=== PATIENT | female | born 1945 | race Caucasian/White ===

== ENCOUNTER 2017-03-14 10:35 | Outpatient (CLI) | payer MEDICARE, MEDICAID ==
[2017-03-14 13:17] LABS: HCT - HEMATOCRIT 35.5 % (37.0-47.0); HGB - HEMOGLOBIN 11.6 g/dL (12.0-16.0); MEAN CORPUSCULAR HEMOGLOBIN 27.6 pg (27.0-31.0); MEAN CORPUSCULAR HGB CONC 32.8 g/dL (32.0-36.0); MEAN CORPUSCULAR VOLUME 84.1 fL (81.0-99.0); MEAN PLATELET VOLUME 8.7 fL (7.9-10.8); RED BLOOD COUNT 4.21 10^6/uL (4.20-5.40); RED CELL DISTRIBUTION WIDTH 14.4 % (12.0-15.0); WHITE BLOOD COUNT 5.1 x10^3/uL (4.8-10.8)
[2017-03-14 14:03] LABS: ALBUMIN/GLOBULIN RATIO 1.6 (1.0-2.2); BILIRUBIN,TOTAL 0.5 mg/dL (0.2-1.0); BUN - BLOOD UREA NITROGEN 9 mg/dL (6-20); CALCIUM 8.9 mg/dL (8.5-10.3); CARBON DIOXIDE - CO2 28 mmol/L (21-32); CHLORIDE 102 mmol/L (101-111); CHOLESTEROL 236 mg/dL; CREATININE 0.7 mg/dL (0.4-1.0); GFR - MDRD 82 (>89); GLUCOSE 93 mg/dL (70-100); HDL CHOLESTEROL 70 mg/dL; POTASSIUM 4.1 mmol/L (3.5-5.0); SODIUM 135 mmol/L (135-145); TOTAL PROTEIN 6.6 g/dL (6.7-8.2); TRIGLYCERIDES 89 mg/dL; VLDL CHOLESTEROL 18 mg/dL
[2017-03-14 14:04] LABS: CHOL/HDL RATIO 3.4 (<4.4); LDL/HDL RATIO 2.1 (<4.4)
== END 2017-03-14 10:36 | disposition home or self-care (01) ==
LOC: LAB.N 10:35
PROVIDERS: ATTEND Family Medicine
DX: Z00.00 Encounter for general adult medical examination without abnormal findings (principal); Z79.899 Other long term (current) drug therapy; Z13.220 Encounter for screening for lipoid disorders; G47.09 Other insomnia
CPT/HCPCS: 36415; 80053; 80061; 84443

== ENCOUNTER 2017-05-21 13:58 | Emergency (ER) | payer MEDICARE, MEDICAID ==
[2017-05-21 14:06] VITALS: BP 180/84
--- NOTE | 2017-05-21 15:23 | XRAY Preliminary Report ---
Exam: XR HIP W/PELVIS 2-3V RT IMPRESSION: Chronic findings. No definite acute disease. [facility] SITE ID: [id number]
--- NOTE | 2017-05-21 15:26 | XRAY Report ---
EXAM: RIGHT HIP AND PELVIS RADIOGRAPHY EXAM DATE: 05/21/2017 03:13 PM. HISTORY: Right hip pain. COMPARISONS: 11/21/2009. TECHNIQUE: 1 view of the pelvis and 1 view of the hip. FINDINGS: Bones: Small bone island in the right supra-acetabular region has not changed significantly. No defin ite fracture or other bone lesion. Joints: The bilateral hip, pubis symphysis, and sacroiliac joints are preserved. Degenerative changes in lower lumbar spine. Soft Tissues: Numerous calcifications in the lower midpelvis, probably in uterine leiomyomata. IMPRESSION: Chronic findings. No definite acute disease. [facility] Referring Provider Line: [phone] SITE ID: [id number]
--- NOTE | 2017-05-21 15:44 | ED Physician Documentation ---
PD HPI LOWER EXT INJURY - Stated complaint Stated Complaint: HIP PX - Chief complaint Chief Complaint: Ext Problem - History obtained from History obtained from: Patient - History of Present Illness PD HPI LOW EXT INJURY LOCATION: Right, Hip Type of injury: Other (No traumatic injury.) Timing - onset: How many days ago (6) Timing - details: Still present Worsened by: Other (Worse with weightbearing.) Associated symptoms: Other (History of osteoarthritis, and history of remote injury to her right hip 34 years ago.) Similar symptoms before: Treatment (Previously was administered a lidocaine injection in the right hip for similar pain.) - Additional information Additional information: The patient is a 71-year-old female who complains of right hip pain that started 6 days ago without any known traumatic injury recently. The pain is worse with weightbearing. She denies any associated fever, urinary incontinence , numbness or weakness in her lower extremities. She has a remote history of right hip injury 34 years ago when ice-skating. She has had lidocaine injection for right hip pain in the past, and is requesting that be done today. She is status post right knee surgery. Review of Systems Constitutional: denies: Fever Respiratory: denies: Dyspnea GI: denies: Abdominal Pain, Nausea, Vomiting : denies: Dysuria, Incontinent Skin: denies: Rash Musculoskeletal: reports: Joint pain (right hip). denies: Back pain, Extremity swelling Neurologic: denies: Focal weakness, Numbness, Headache PD PAST MEDICAL HISTORY - Past Medical History Past Medical History: Yes Cardiovascular: High cholesterol Respiratory: Asthma Endocrine/Autoimmune: None GI: Ulcers : Other HEENT: None Psych: Depression, Bipolar disorder, Panic attacks, Post traumatic stress disorder Musculoskeletal: Osteoarthritis, Osteoporosis Derm: None - Past Surgical History Past Surgical History: Yes General: Colonoscopy Ortho: Spine surgery, Other (Right knee surgery.) - Present Medications Home Medications: Ambulatory Orders Medication Instructions Recorded Confirmed Gabapentin [Gralise] 600 mg PO QID 01/03/13 05/21/17 Alendronate Sodium [Fosamax] 70 mg PO ONCE 05/15/15 05/21/17 Budesonide/Formoterol Fumarate 10.2 gm IH BID 05/15/15 05/21/17 [Symbicort 80-4.5 Mcg Inhaler] Multivitamin [Multivitamins] 1 each PO DAILY 05/15/15 05/21/17 Venlafaxine [Effexor] 37.5 mg PO BID 05/15/15 05/21/17 traZODone [Desyrel] 250 mg PO HS 05/15/15 05/21/17 Lurasidone HCl [Latuda] 20 mg PO DAILY 11/26/15 05/21/17 Albuterol Sulfate [Ventolin Hfa] 2 puffs IH Q4H PRN #1 hfa.aer.ad 11/29/1505/21 HYDROcod/ACETAM 5/325 [Vicodin 1 ea PO Q6H PRN #20 tablet 05/21/17 5/325] Zolpidem Tartrate [Ambien] 10 mg PO DAILY 05/21/17 05/21/17 tiZANidine [Zanaflex] 2 mg PO DAILY 05/21/17 05/21/17 - Allergies Allergies/Adverse Reactions: Allergies Allergy/AdvReac Type Severity Reaction Status Date / Time Tetracyclines Allergy Intermediate Rash Verified 05/21/17 14:06 ciprofloxacin Allergy Nausea Verified 05/21/17 14:06 amoxicillin trihydrate * AdvReac Intermediate Nausea Verified 05/21/17 14:06 [From Augmentin] Penicillins AdvReac Nausea Verified 05/21/17 14:06 - Social History Does the pt smoke?: No Smoking Status: Never smoker Does the pt drink ETOH?: No Does the pt have substance abuse?: No - POLST Patient has POLST: No PD ED PE NORMAL - Vitals Vital signs reviewed: Yes (Initially hypertensive.) - General General: Alert and oriented X 3, Well developed/nourished - HEENT HEENT: Atraumatic, PERRL, Ears normal, Moist mucous membranes - Neck Neck: No adenopathy, No JVD - Cardiac Cardiac: RRR - Respiratory Respiratory: No respiratory distress, Clear bilaterally - Abdomen Abdomen: Soft, Non tender - Back Back: No CVA TTP, No spinal TTP - Derm Derm: No rash - Extremities Extremities: No edema, No calf tenderness / cord, Other (There is tenderness to palpation of the right posterior lateral hip. She does have good range of motion, with flexion extension, as well as internal and external rotation of the. There is a well-healed surgical scar over the anterior aspect of the right knee. Distal neurovascular is intact.) - Neuro Neuro: Alert and oriented X 3, No motor deficit, No sensory deficit Results - Vitals Vitals: Oxygen O2 Source [] Room air O2 Source Room air - Rads (name of study) Right hip/pelvis Radiology: Prelim report reviewed, EMP read contemporaneously, See rad report ( Chronic findings. No definite acute disease.) PD MEDICAL DECISION MAKING - ED course Complexity details: reviewed old records, reviewed results, re-evaluated patient , considered differential, d/w patient ED course: The patient's right hip pain is most likely due to degenerative arthritis. Her x-ray reveals degenerative changes, without acute bony abnormality. I do not think her pain is caused by a septic joint. Her pain may be referred pain from her lower back, but that is less likely. Treatment in the emergency department included administration of Vicodin one tablet orally. She is being discharged with prescription for short course of Vicodin. I discussed with her symptomatic treatment, outpatient follow-up, as well as potentially worrisome signs or symptoms that should prompt reevaluation in the emergency department. Departure - Departure Disposition: 01 Home, Self Care Clinical Impression: Left hip pain Condition: Stable Instructions: ED Joint Pain Follow-Up: Lit Hayes MD [Primary Care Provider] - Prescriptions: HYDROcod/ACETAM 5/325 [Vicodin 5/325] 1 ea PO Q6H PRN #20 tablet PRN Reason: Pain Comments: You can use Vicodin as prescribed if needed for pain. Follow up with your primary physician within 1-2 weeks. Call to schedule appointment. Return to the emergency department if you develop increasing pain, fever, numbness or weakness in your leg, or otherwise worsening symptoms. Discharge Date/Time: 05/21/17 16:18
[2017-05-21] MEDS ORDERED: HYDROcod/ACETAM 5/325 MG TABLET PO STA (15:52)
== END 2017-05-21 16:18 | disposition home or self-care (01) ==
LOC: ED 13:58
DX: M25.551 Pain in right hip (principal); M81.0 Age-related osteoporosis without current pathological fracture; M19.90 Unspecified osteoarthritis, unspecified site; E78.00 Pure hypercholesterolemia, unspecified
CPT/HCPCS: 73502; 99283; 99284; A9270

== ENCOUNTER 2017-12-04 11:17 | Outpatient (CLI) | payer MEDICARE, MEDICAID ==
[2017-12-04 18:56] LABS: BASOPHILS % (AUTO) 0.6 %; EOSINOPHILS # (AUTO) 0.1 10^3/uL (0.0-0.7); EOSINOPHILS % (AUTO) 1.2 %; HGB - HEMOGLOBIN 11.3 g/dL (12.0-16.0); LYMPHOCYTES # (AUTO) 1.6 10^3/uL (1.5-3.5); LYMPHOCYTES % (AUTO) 27.4 %; MEAN CORPUSCULAR HEMOGLOBIN 27.4 pg (27.0-31.0); MEAN CORPUSCULAR HGB CONC 31.6 g/dL (32.0-36.0); MEAN CORPUSCULAR VOLUME 86.9 fL (81.0-99.0); MONOCYTES # (AUTO) 0.3 10^3/uL (0.0-1.0); MONOCYTES % (AUTO) 5.9 %; NEUTROPHILS # (AUTO) 3.8 10^3/uL (1.5-6.6); NEUTROPHILS % (AUTO) 64.9 %; PLT - PLATELET COUNT 402 10^3/uL (130-450); RED BLOOD COUNT 4.11 10^6/uL (4.20-5.40); RED CELL DISTRIBUTION WIDTH 14.7 % (12.0-15.0); WHITE BLOOD COUNT 5.9 x10^3/uL (4.8-10.8)
[2017-12-04 19:12] LABS: ALBUMIN 3.3 g/dL (3.2-5.5); ALBUMIN/GLOBULIN RATIO 0.9 (1.0-2.2); ALKALINE PHOSPHATASE 49 IU/L (42-121); ALT ALANINE AMINOTRANSFERASE < 10 IU/L (10-60); AST ASPARTATE AMINOTRANSFERASE 14 IU/L (10-42); BILIRUBIN,TOTAL 0.3 mg/dL (0.2-1.0); BUN - BLOOD UREA NITROGEN 16 mg/dL (6-20); CALCIUM 9.3 mg/dL (8.5-10.3); CARBON DIOXIDE - CO2 27 mmol/L (21-32); CHLORIDE 103 mmol/L (101-111); CREATININE 0.7 mg/dL (0.4-1.0); GFR - MDRD 82 (>89); GLUCOSE 88 mg/dL (70-100); SODIUM 138 mmol/L (135-145); TOTAL PROTEIN 6.8 g/dL (6.7-8.2)
== END 2017-12-04 11:18 | disposition home or self-care (01) ==
LOC: LAB.WCP 11:17
PROVIDERS: ATTEND Family Medicine
DX: R91.8 Other nonspecific abnormal finding of lung field (principal); M81.0 Age-related osteoporosis without current pathological fracture; G47.01 Insomnia due to medical condition; F32.9 Major depressive disorder, single episode, unspecified
CPT/HCPCS: 36415; 80053; 80061; 83721; 84443; 85025

== ENCOUNTER 2018-06-11 08:00 | Outpatient (CLI) | payer MEDICARE, MEDICAID | END 2018-06-11 23:59 | disposition home or self-care (01) | LOC: LAB.WCP 08:00 | PROVIDERS: ATTEND Family Medicine | DX: R68.89 Other general symptoms and signs (principal) | CPT/HCPCS: 36415; 84443 ==

== ENCOUNTER 2018-11-19 13:09 | Outpatient (CLI) | payer MEDICARE, MEDICAID ==
[2018-12-17 15:03] LABS: CLARITY,URINE CLEAR (CLEAR); LEUKOCYTE ESTERASE, URINE NEGATIVE (NEGATIVE); NITRITE,URINE NEGATIVE (NEGATIVE)
[2018-12-17 15:04] LABS: PH,URINE 7.5 PH (5.0-7.5); PROTEIN,URINE NEGATIVE (NEGATIVE); UROBILINOGEN,URINE 0.2 (NORMAL) E.U./dL (NORMAL)
[2018-12-17 15:05] LABS: BILIRUBIN,URINE NEGATIVE (NEGATIVE); GLUCOSE, URINE (UA) NEGATIVE (NEGATIVE); KETONES,URINE (UA) NEGATIVE (NEGATIVE); OCCULT BLOOD,URINE NEGATIVE (NEGATIVE)
== END 2018-11-19 23:59 | disposition home or self-care (01) ==
LOC: LAB.R 13:09
PROVIDERS: ATTEND Family Medicine
DX: R39.9 Unspecified symptoms and signs involving the genitourinary system (principal)
CPT/HCPCS: 81001; 81003; 87086

== ENCOUNTER 2019-02-10 12:17 | Day surgery (SDC) | payer MEDICARE, MEDICAID ==
[2019-02-10] MEDS ORDERED: MIDAZOLAM 2 MG/2 ML VIAL IVP ONE (12:18)
[2019-02-10] MEDS ORDERED: fentaNYL 250 MCG/5 ML VIAL IVP ONE (12:18)
[2019-02-10] MEDS ORDERED: LACTATED RINGERS 1,000 ML IV ONE (14:20)
[2019-02-10 15:08] VITALS: BP 169/90
== END 2019-02-10 12:18 | disposition home or self-care (01) ==
LOC: SDS 12:17
PROVIDERS: ATTEND Internal Medicine
PROC: 0DJD8ZZ Inspection of Lower Intestinal Tract, Via Natural or Artificial Opening Endoscopic (ICD-10-PCS; principal; 2019-02-10 13:30)
DX: R19.4 Change in bowel habit (principal); K64.0 First degree hemorrhoids
CPT/HCPCS: 45378; J7120

== ENCOUNTER 2019-03-17 13:50 | Outpatient (CLI) | payer MEDICARE, MEDICAID ==
[2019-03-17 18:43] LABS: MUDS CUTOFF CONCENTRATIONS CUTOFF CONC BELOW:
[2019-03-17 19:14] LABS: AMPHETAMINE SCREEN,URINE NEGATIVE (NEGATIVE); BENZODIAZEPINES SCREEN, URINE NEGATIVE (NEGATIVE); COCAINE SCREEN URINE NEGATIVE (NEGATIVE); METHADONE SCREEN, URINE NEGATIVE (NEGATIVE); METHAMPHETAMINES SCREEN, URINE NEGATIVE (NEGATIVE); OPIATE SCREEN, URINE POSITIVE (NEGATIVE); OXYCODONE SCREEN, URINE NEGATIVE (NEGATIVE); PROPOXYPHENE SCREEN, URINE NEGATIVE (NEGATIVE); TRICYCLIC ANTIDEPRESSANT,URINE NEGATIVE (NEGATIVE)
== END 2019-03-17 23:59 | disposition home or self-care (01) ==
LOC: LAB.R 13:50
PROVIDERS: ATTEND Family Medicine
DX: Z79.891 Long term (current) use of opiate analgesic (principal)
CPT/HCPCS: 80306

== ENCOUNTER 2019-05-27 12:41 | Outpatient (CLI) | payer MEDICARE, MEDICAID | END 2019-05-27 12:42 | disposition critical access hospital (66) | LOC: EMS 12:41 | PROVIDERS: ATTEND Surgery | DX: R46.4 Slowness and poor responsiveness (principal); R47.9 Unspecified speech disturbances | CPT/HCPCS: A0425; A0429 ==

== ENCOUNTER 2019-05-27 13:04 | Inpatient (IN) | payer MEDICARE, MEDICAID ==
--- NOTE | 2019-05-27 13:17 | ED Physician Documentation ---
History of Present Illness - Stated complaint Stated Complaint: ALOC - History obtained from History obtained from: EMS - Additonal information Additional information: 73-year-old woman presents ambulance for altered mental status. She lives alone with a visiting caregiver. The caregiver had not seen her in a few days and found her today to be in bed mumbling. There was no report of trauma. Her blood glucose prior to arrival was in the 80s. Review of the chart shows that this is happened before, she had similar admissions due to psychosis and depression back in 2014 which resolved spontaneously. When I talked to the patient, she is very slow to answer questions. I asked her why she is here and she replied "it is wrong." I asked her what was wrong and she replied that somebody was making fun of her and then we drilled down and somebody named Derrek Knight she said was making fun of her. Then she would not elaborate more on that. I asked her how I could help her and she said lift my arms up and I lifted her arms up and she put them behind her head. Symmetric movements. Review of Systems Unable to obtain: AMS PD PAST MEDICAL HISTORY - Past Medical History Cardiovascular: High cholesterol Respiratory: Asthma Endocrine/Autoimmune: None GI: Ulcers : Other HEENT: None Psych: Depression, Bipolar disorder, Panic attacks, Post traumatic stress disorder Musculoskeletal: Osteoarthritis, Osteoporosis Derm: None - Past Surgical History Past Surgical History: Yes General: Colonoscopy Ortho: Other HEENT: Tonsil/Adenoidectomy - Present Medications Home Medications: Ambulatory Orders Medication Instructions Recorded Confirmed Alendronate Sodium [Fosamax] 70 mg PO Q7D 05/15/15 05/27/19 Multivitamin [Multivitamins] 1 each PO DAILY 05/15/15 05/27/19 Budesonide/Formoterol Fumarate 2 puffs INH BID 05/27/19 [Symbicort 160-4.5 Mcg Inhaler] Cetirizine [ZyrTEC] 10 mg PO DAILY 05/27/19 05/27/19 Gabapentin 800 mg PO TID 05/27/19 05/27/19 Hydrocodone/Acetaminophen 1 tab PO TID PRN 05/27/19 05/27/19 [Hydrocodon-Acetaminophn 10-325] Lactulose 10 gm PO DAILY PRN 05/27/19 05/27/19 Lurasidone HCl [Latuda] 20 mg PO DAILY 05/27/19 Meloxicam 15 mg PO DAILY 05/27/19 05/27/19 Tizanidine HCl 2 mg PO BID 05/27/19 05/27/19 Trazodone HCl 300 mg PO QPM 05/27/19 05/27/19 Venlafaxine ER [Effexor ER] 75 mg PO DAILY 05/27/19 05/27/19 Venlafaxine HCl [Venlafaxine HCl 150 mg PO DAILY 05/27/19 05/27/19 ER] clonazePAM [Clonazepam] 0.5 mg PO BID PRN 05/27/19 05/27/19 lisinopriL [Lisinopril] 20 mg PO DAILY 05/27/19 05/27/19 - Allergies Allergies/Adverse Reactions: Allergies Allergy/AdvReac Type Severity Reaction Status Date / Time Tetracyclines Allergy Intermediate Rash Verified 05/21/17 14:06 ciprofloxacin Allergy Nausea Verified 05/21/17 14:06 amoxicillin trihydrate * AdvReac Intermediate Nausea Verified 05/21/17 14:06 [From Augmentin] Penicillins AdvReac Nausea Verified 05/21/17 14:06 - Social History Does the pt smoke?: No Smoking Status: Never smoker Does the pt drink ETOH?: No Does the pt have substance abuse?: No - POLST Patient has POLST: No PD ED PE NORMAL - Vitals Vital signs reviewed: Yes - General General: No acute distress, Other (She is alert, she will answer questions albeit very very slowly, after I ask a question it takes about a minute for a 1 or 2 word answer. She follows simple commands.) - HEENT HEENT: PERRL, EOMI - Neck Neck: Supple, no meningeal sign, No bony TTP - Cardiac Cardiac: RRR, No murmur - Respiratory Respiratory: No respiratory distress, Clear bilaterally - Abdomen Abdomen: Normal bowel sounds, Soft, Non tender - Back Back: No CVA TTP, No spinal TTP - Derm Derm: Normal color, Warm and dry - Extremities Extremities: No edema, No calf tenderness / cord - Neuro Neuro: No motor deficit, No sensory deficit Eye Opening: Spontaneous Motor: Obeys Commands Verbal: Inappropriate GCS Score: 13 Results - Vitals Vitals: Vital Signs - 24 hr 05/27/19 05/27/19 05/27/19 13:06 15:53 16:01 Temperature 36.9 C Heart Rate 78 84 73 Respiratory 16 20 18 Rate Blood Pressure 200/76 H 193/91 H 161/91 H O2 Saturation 100 98 100 Oxygen O2 Source [] Room air O2 Source Room air - EKG (time done) 1334 Rate: Rate (enter#) (79) Rhythm: NSR [place]: Normal Intervals: Normal OR QRS: Normal Ischemia: Non specific changes Computer interpretation: Agree with computer - Labs Labs: Laboratory Tests 05/27/19 05/27/19 05/27/19 13:30 13:30 13:30 WBC 6.8 RBC 4.52 Hgb 12.2 Hct 39.0 MCV 86.3 MCH 27.0 MCHC 31.3 L RDW 13.9 Plt Count 267 MPV 9.9 Neut # (Auto) 4.5 Lymph # (Auto) 1.7 [place] # (Auto) 0.5 Eos # (Auto) 0.0 Baso # (Auto) 0.0 Absolute Nucleated RBC 0.00 Nucleated RBC % 0.0 PT 11.9 INR 1.0 Sodium 138 Potassium 4.0 Chloride 102 Carbon Dioxide 25 Anion Gap 11.0 BUN 19 Creatinine 0.6 Estimated GFR (MDRD) 98 Glucose 104 H Lactic Acid Calcium 9.6 Total Bilirubin 0.8 AST 17 ALT 14 Alkaline Phosphatase 42 Total Creatine Kinase Total Protein 7.1 Albumin 4.4 Globulin 2.7 Albumin/Globulin Ratio 1.6 Lipase 45 TSH Urine Color Urine Clarity Urine pH Ur Specific [place] Urine Protein Urine Glucose (UA) Urine Ketones Urine Occult Blood Urine Nitrite Urine Bilirubin Urine Urobilinogen Ur Leukocyte Esterase Urine RBC Urine WBC Urine WBC Clumps Ur Squamous Epith Cells Urine Bacteria Ur Microscopic Review Urine Culture Comments Salicylates < 6.0 Urine Opiates Screen Ur Oxycodone Screen Urine Methadone Screen Ur Propoxyphene Screen Acetaminophen < 10 L Ur Barbiturates Screen Ur Tricyclics Screen Ur Phencyclidine Scrn Ur Amphetamine Screen U Methamphetamines Scrn U Benzodiazepines Scrn Urine Cocaine Screen U Cannabinoids Screen Ethyl Alcohol < 5.0 05/27/19 05/27/19 05/27/19 13:30 13:30 14:35 WBC RBC Hgb Hct MCV MCH MCHC RDW Plt Count MPV Neut # (Auto) Lymph # (Auto) [place] # (Auto) Eos # (Auto) Baso # (Auto) Absolute Nucleated RBC Nucleated RBC % PT INR Sodium Potassium Chloride Carbon Dioxide Anion Gap BUN Creatinine Estimated GFR (MDRD) Glucose Lactic Acid Calcium Total Bilirubin AST ALT Alkaline Phosphatase Total Creatine Kinase 64 Total Protein Albumin Globulin Albumin/Globulin Ratio Lipase TSH 0.18 L Urine Color YELLOW Urine Clarity CLOUDY Urine pH 6.0 Ur Specific Fowler 1.025 Urine Protein TRACE Urine Glucose (UA) NEGATIVE Urine Ketones >=80 H Urine Occult Blood LARGE H Urine Nitrite NEGATIVE Urine Bilirubin NEGATIVE Urine Urobilinogen 0.2 (NORMAL) Ur Leukocyte Esterase LARGE H Urine RBC TNTC H Urine WBC >25 H Urine WBC Clumps PRESENT Ur Squamous Epith Cells MANY Squamous H Urine Bacteria Many H Ur Microscopic Review INDICATED Urine Culture Comments NOT INDICATED Salicylates Urine Opiates Screen NEGATIVE Ur Oxycodone Screen NEGATIVE Urine Methadone Screen NEGATIVE Ur Propoxyphene Screen NEGATIVE Acetaminophen Ur Barbiturates Screen NEGATIVE Ur Tricyclics Screen NEGATIVE Ur Phencyclidine Scrn NEGATIVE Ur Amphetamine Screen NEGATIVE U Methamphetamines Scrn NEGATIVE U Benzodiazepines Scrn NEGATIVE Urine Cocaine Screen NEGATIVE U Cannabinoids Screen NEGATIVE Ethyl Alcohol 05/27/19 16:00 WBC RBC Hgb Hct MCV MCH MCHC RDW Plt Count MPV Neut # (Auto) Lymph # (Auto) [place] # (Auto) Eos # (Auto) Baso # (Auto) Absolute Nucleated RBC Nucleated RBC % PT INR Sodium Potassium Chloride Carbon Dioxide Anion Gap BUN Creatinine Estimated GFR (MDRD) Glucose Lactic Acid 1.4 Calcium Total Bilirubin AST ALT Alkaline Phosphatase Total Creatine Kinase Total Protein Albumin Globulin Albumin/Globulin Ratio Lipase TSH Urine Color Urine Clarity Urine pH Ur Specific Fowler Urine Protein Urine Glucose (UA) Urine Ketones Urine Occult Blood Urine Nitrite Urine Bilirubin Urine Urobilinogen Ur Leukocyte Esterase Urine RBC Urine WBC Urine WBC Clumps Ur Squamous Epith Cells Urine Bacteria Ur Microscopic Review Urine Culture Comments Salicylates Urine Opiates Screen Ur Oxycodone Screen Urine Methadone Screen Ur Propoxyphene Screen Acetaminophen Ur Barbiturates Screen Ur Tricyclics Screen Ur Phencyclidine Scrn Ur Amphetamine Screen U Methamphetamines Scrn U Benzodiazepines Scrn Urine Cocaine Screen U Cannabinoids Screen Ethyl Alcohol - Rads (name of study) CT Head Radiology: EMP read contemporaneously (atrophy NAD) PD MEDICAL DECISION MAKING - ED course ED course: 73-year-old woman presents with altered mental status, catatonia. Only pertinent positive finding is a UTI. Note made that in 2015 she had some admissions very similar and resolved. Spoke with Dr. Monaco for admission at 3:49 PM. Departure - Departure Disposition: ED Place in Observation Clinical Impression: UTI (lower urinary tract infection) Altered mental status Qualifiers: Altered mental status type: delirium Qualified Code(s): R41.0 - Disorientation, unspecified Condition: Serious
[2019-05-27 13:40] LABS: BASOPHILS % (AUTO) 0.4 %; EOSINOPHILS % (AUTO) 0.1 %; HGB - HEMOGLOBIN 12.2 g/dL (12.0-16.0); LYMPHOCYTES # (AUTO) 1.7 10^3/uL (1.5-3.5); LYMPHOCYTES % (AUTO) 25.7 %; MEAN CORPUSCULAR HGB CONC 31.3 g/dL (32.0-36.0); MEAN CORPUSCULAR VOLUME 86.3 fL (81.0-99.0); MEAN PLATELET VOLUME 9.9 fL (7.9-10.8); MONOCYTES # (AUTO) 0.5 10^3/uL (0.0-1.0); MONOCYTES % (AUTO) 6.7 %; NEUTROPHILS # (AUTO) 4.5 10^3/uL (1.5-6.6); PLT - PLATELET COUNT 267 10^3/uL (130-450); RED BLOOD COUNT 4.52 10^6/uL (4.20-5.40); RED CELL DISTRIBUTION WIDTH 13.9 % (12.0-15.0); WHITE BLOOD COUNT 6.8 x10^3/uL (4.8-10.8)
[2019-05-27 13:46] LABS: PT - PROTHROMBIN TIME 11.9 secs (9.9-12.6)
[2019-05-27 13:58] LABS: ACETAMINOPHEN < 10 ug/mL (10-30); ALBUMIN 4.4 g/dL (3.2-5.5); ALBUMIN/GLOBULIN RATIO 1.6 (1.0-2.2); ALKALINE PHOSPHATASE 42 IU/L (42-121); ALT ALANINE AMINOTRANSFERASE 14 IU/L (10-60); AST ASPARTATE AMINOTRANSFERASE 17 IU/L (10-42); BILIRUBIN,TOTAL 0.8 mg/dL (0.2-1.0); BUN - BLOOD UREA NITROGEN 19 mg/dL (6-20); CALCIUM 9.6 mg/dL (8.5-10.3); CARBON DIOXIDE - CO2 25 mmol/L (21-32); CHLORIDE 102 mmol/L (101-111); CREATININE 0.6 mg/dL (0.4-1.0); GFR - MDRD 98 (>89); GLUCOSE 104 mg/dL (70-100); LIPASE 45 U/L (22-51); SALICYLATE < 6.0 mg/dL; SODIUM 138 mmol/L (135-145); TOTAL PROTEIN 7.1 g/dL (6.7-8.2)
--- NOTE | 2019-05-27 14:19 | CT Report ---
Reason: altered Procedure Date: 05/27/2019 Accession Number: [id number] / [id number] Procedure: CT - HEAD WO CPT Code: Final Report FULL RESULT: EXAM: CT HEAD EXAM DATE: 05/27/2019 01:52 PM. CLINICAL HISTORY: 73-year-old female. Altered. COMPARISON: MR brain 09/14/2014 TECHNIQUE: Multiaxial CT images were obtained from the foramen magnum to the vertex. Reformats: Sagittal and coronal. IV contrast: None. In accordance with CT protocol optimization, one or more of the following dose reduction techniques were utilized for this exam: automated exposure control, adjustment of mA and/or KV based on patient size, or use of iterative reconstructive technique. FINDINGS: Parenchyma: No intraparenchymal hemorrhage. No evidence of mass, midline shift, or CT findings of acute infarction. Warren-white differentiation is distinct. Diffuse chronic microangiopathic white matter changes are evident. Extraaxial Spaces: Normal for age. No subdural or epidural collections identified. Ventricles: The ventricles and cortical sulci are enlarged, consistent with age-related tissue loss. Sinuses and orbits: Imaged paranasal sinuses, orbits, and mastoids show no significant abnormality. Bones: No evidence of fracture or calvarial defect. Other: None. IMPRESSION: Generalized age-related cortical atrophic changes without evidence of acute intracranial abnormality. [facility]
[2019-05-27 14:53] LABS: MUDS CUTOFF CONCENTRATIONS CUTOFF CONC BELOW:
[2019-05-27 15:05] LABS: GLUCOSE, URINE (UA) NEGATIVE (NEGATIVE); KETONES,URINE (UA) >=80 mg/dL (NEGATIVE); LEUKOCYTE ESTERASE, URINE LARGE (NEGATIVE); NITRITE,URINE NEGATIVE (NEGATIVE); OCCULT BLOOD,URINE LARGE (NEGATIVE); PROTEIN,URINE TRACE mg/dL (NEGATIVE); UROBILINOGEN,URINE 0.2 (NORMAL) E.U./dL (NORMAL)
[2019-05-27 15:21] LABS: AMPHETAMINE SCREEN,URINE NEGATIVE (NEGATIVE); BENZODIAZEPINES SCREEN, URINE NEGATIVE (NEGATIVE); BILIRUBIN,URINE NEGATIVE (NEGATIVE); CLARITY,URINE CLOUDY (CLEAR); COCAINE SCREEN URINE NEGATIVE (NEGATIVE); ICTOTEST,URINE NEGATIVE; METHADONE SCREEN, URINE NEGATIVE (NEGATIVE); METHAMPHETAMINES SCREEN, URINE NEGATIVE (NEGATIVE); OPIATE SCREEN, URINE NEGATIVE (NEGATIVE); OXYCODONE SCREEN, URINE NEGATIVE (NEGATIVE); PROPOXYPHENE SCREEN, URINE NEGATIVE (NEGATIVE); TRICYCLIC ANTIDEPRESSANT,URINE NEGATIVE (NEGATIVE)
[2019-05-27 15:23] LABS: BACTERIA,URINE Many /HPF (None Seen); RBC,URINE TNTC /HPF (0-5); SQUAMOUS EPITHELIAL CELL,UR MANY Squamous (<= Few); WBC CLUMPS,URINE PRESENT
[2019-05-27] MEDS ORDERED: SODIUM CHLORIDE 0.9% 1,000 ML IV ONE (15:32)
[2019-05-27] MEDS ORDERED: cefTRIAXone 1 GM in SODIUM CHLORIDE 0.9% MINIBAG 100 ML IV STA (15:33)
[2019-05-27] MEDS ORDERED: ACETAMINOPHEN 325 MG TABLET PO PRN (16:31)
[2019-05-27] MEDS ORDERED: SODIUM CHLORIDE FLUSH 0.9% 10 ML SYRINGE IVP PRN (16:31)
[2019-05-27] MEDS ORDERED: ONDANSETRON 4 MG/2 ML VIAL IVP PRN (16:31)
[2019-05-27] MEDS ORDERED: HYDROcod/ACETAM 10 MG/325 MG TABLET PO PRN (16:44)
[2019-05-27] MEDS ORDERED: clonazePAM 0.5 MG TABLET PO PRN (16:44)
[2019-05-27] MEDS ORDERED: ALBUTEROL NEB 2.5 MG/3 ML INH PRN (16:50)
[2019-05-27] MEDS ORDERED: IPRATROPIUM/ALBUTEROL 3 ML NEB INH PRN (16:50)
--- NOTE | 2019-05-27 16:51 | HISTORY & PHYSICAL EXAMINATION ---
Chief Complaint - Chief Complaint Chief Complaint: AMS History of Present Illness - History of Present Illness HPI Comment/Other: 73-year-old woman with a PMH significant for asthma, PUD, osteoporosis, chronic back pain, and depression who presents ER for altered mental status. pt had two similar admission on 2014 for altered mental status, resolved the problem by her own. pt lives alone with a visiting caregiver. The caregiver had not seen her in a few days and found her today to be in bed with mumbling. There was no report of trauma or fall. I ask pt question, she watch me but did not answer question. nurse at the bedside and ask her, she also did not answer. Upon examination, pt does not present focal neurological deficit, bilateral with equal strength. CT of head is unremarkable for acute finding. UA indicate possible UTI. TSH is low otherwise route lab test in ER is unremarkable. pt is afebrile with elevated BP. pt is admitted for altered mental status. History - Past Medical History Cardiovascular: reports: High cholesterol Respiratory: reports: Asthma Endocrine/Autoimmune: reports: None GI: reports: Ulcers : reports: Other HEENT: reports: None Psych: reports: Depression, Bipolar disorder, Panic attacks, Post traumatic stress disorder Musculoskeletal: reports: Osteoarthritis, Osteoporosis Derm: reports: None MRSA Hx?: No - Past Surgical History General: reports: Colonoscopy Ortho: reports: Other HEENT: reports: Tonsil/Adenoidectomy - Family & Social History Family History Comment/Other: pt did not answer any questions Social History Notes: pt did not answer any questions - POLST Patient has POLST: No Meds/Allgy - Home Medications Home Medications: Ambulatory Orders Medication Instructions Recorded Confirmed Alendronate Sodium [Fosamax] 70 mg PO Q7D 05/15/15 05/27/19 Multivitamin [Multivitamins] 1 each PO DAILY 05/15/15 05/27/19 Cetirizine [ZyrTEC] 10 mg PO DAILY 05/27/19 05/27/19 Gabapentin 800 mg PO TID 05/27/19 05/27/19 Hydrocodone/Acetaminophen 1 tab PO TID PRN 05/27/19 05/27/19 [Hydrocodon-Acetaminophn 10-325] Lactulose 10 gm PO DAILY PRN 05/27/19 05/27/19 Meloxicam 15 mg PO DAILY 05/27/19 05/27/19 Tizanidine HCl 2 mg PO BID 05/27/19 05/27/19 Trazodone HCl 300 mg PO QPM 05/27/19 05/27/19 Venlafaxine ER [Effexor ER] 75 mg PO DAILY 05/27/19 05/27/19 Venlafaxine HCl [Venlafaxine HCl 150 mg PO DAILY 05/27/19 05/27/19 ER] clonazePAM [Clonazepam] 0.5 mg PO BID PRN 05/27/19 05/27/19 lisinopriL [Lisinopril] 20 mg PO DAILY 05/27/19 05/27/19 - Allergies Allergies/Adverse Reactions: Allergies Allergy/AdvReac Type Severity Reaction Status Date / Time Tetracyclines Allergy Intermediate Rash Verified 05/21/17 14:06 ciprofloxacin Allergy Nausea Verified 05/21/17 14:06 amoxicillin trihydrate * AdvReac Intermediate Nausea Verified 05/21/17 14:06 [From Augmentin] Penicillins AdvReac Nausea Verified 05/21/17 14:06 Review of Systems - Other Findings Other Findings: pt did not answer any questions Exam - Vital Signs Vital Signs: Vital Signs x48h Temp Pulse Resp BP Pulse Ox 05/27/19 16:01 73 18 161/91 H 100 05/27/19 15:53 84 20 193/91 H 98 05/27/19 13:06 36.9 C 78 16 200/76 H 100 - Physical Exam General Appearance: positive: No acute distress, Alert. negative: Lethargic Eyes Bilateral: positive: Normal inspection, PERRL, EOMI, No lid inflammation ENT: positive: ENT inspection nml, No signs of dehydration. negative: Purulent nasal drainage Neck: positive: Nml inspection, Thyroid nml, No JVD, Trachea midline. negative: Thyromegaly, Lymphadenopathy (R), Lymphadenopathy (L), Stiff neck, Tracheal deviation Respiratory: positive: Chest non-tender, No respiratory distress, Breath sounds nml. negative: Wheezes, Rales, Rhonchi Cardiovascular: positive: Regular rate & rhythm, No murmur, No gallop. negative: Irregularly irregular, Extrasystoles, Tachycardia, Bradycardia, JVD present, Systolic murmur, Diastolic murmur Peripheral Pulses: positive: 2+ Abdomen: positive: Non-tender, No organomegaly, Nml bowel sounds, No distention. negative: Tenderness, Guarding, Rebound Back: positive: Nml inspection Skin: positive: Color nml, No rash, Warm, Dry. negative: Cyanosis, Diaphoresis, Pallor Extremities: positive: Non-tender, Nml appearance. negative: Calf tenderness, Siri's sign/cords Neurologic/Psychiatric: positive: Sensation nml. negative: Weakness, Sensory loss, Facial droop, Slurred/abnml speech, Depressed mood/affect Sepsis Event Note (H) - Evaluation Current Stage of Sepsis: Ruled out Conclusion/Plan - Problem List (1) Altered mental status Conclusion/Plan: pt present AMS, did not answer any questions when I and nurse asked her. pt has hx of AMS, resolved by her own in hospital setting, pt did not present focal neurological deficits. continue treatment of underline of infection, likely UTI nurse and staff, team support, and orient to pt gently IVF of NS Qualifiers: Altered mental status type: delirium Qualified Code(s): R41.0 - Disorientation, unspecified (2) UTI (lower urinary tract infection) Conclusion/Plan: UA analysis reveals skin cell contamination, will repeat UA, ER already start antibiotics. pt is confused. otherwise will continue antibiotics until new UA approve. (3) Asthma Conclusion/Plan: hx of Asthma, now pt is stable. order PRN of albuterol Qualifiers: Asthma severity: mild intermittent Asthma complication type: with acute exacerbation (4) Depression Conclusion/Plan: pt has hx of depression, resume home meds, neuro check (5) Chronic back pain Conclusion/Plan: pt has hx of chronic back pain, stable, continue pain control - Lab Results Fish Bones: 05/28/19 04:40 05/28/19 04:40 Core Measures - Anticipated LOS I expect patient to be DC'd or transferred within 96 hours.: Yes - DVT/VTE - Prophylaxis VTE/DVT Device ordered at admit?: Yes VTE/DVT Prophylaxis med ordered at admit?: Yes
[2019-05-27] MEDS ORDERED: SODIUM CHLORIDE 0.9% 1,000 ML IV SCH (17:00)
[2019-05-27] MEDS: lisinopriL 20 MG TABLET PO SCH (17:50)
[2019-05-27] MEDS ORDERED: hydrALAZINE INJ 20 MG/ML VIAL IVP PRN (18:12)
--- NOTE | 2019-05-27 18:17 | PHARMACY PROGRESS NOTE ---
- Best Possible Medication History Admit Date and Time: 05/27/19 1631 Processed by: Pharmacy Medication History completed: Yes Patient Interview: Pt unable to participate Secondary Source(s): Prescription bottles, Physician records, Pharmacy records, Insurance records Patient had medications stored in the Pharmacy. Of note: Hydrocodone/Acetaminophen 10/325 # 16.5 tabs and clonazepam 0.5 mg tabs # 51.5 As the person ultimately responsible for medication therapy, providers are able to order a medication from an existing home medication list in [facility] via the "Reconcile Routine" prior to Confirmation of that medication by customer support professional. Such practice is discouraged except when the physician, in their clinical judgment, deems that a medical need exists for a medication without regard to previous use.
[2019-05-27] MEDS: traZODone 50 MG TABLET PO SCH (20:57)
[2019-05-27] MEDS: FAMOTIDINE 20 MG TABLET PO SCH (20:57)
[2019-05-27] MEDS: tiZANidine 4 MG TABLET PO SCH (20:57)
[2019-05-28] MEDS ORDERED: HALOPERIDOL 5 MG/ML VIAL IVP PRN (01:39)
[2019-05-28] MEDS: SODIUM CHLORIDE FLUSH 0.9% 10 ML SYRINGE IVP SCH ×3 (02:10→20:46)
[2019-05-28 05:11] LABS: BASOPHILS % (AUTO) 0.5 %; EOSINOPHILS % (AUTO) 0.3 %; HGB - HEMOGLOBIN 11.2 g/dL (12.0-16.0); LYMPHOCYTES # (AUTO) 1.8 10^3/uL (1.5-3.5); LYMPHOCYTES % (AUTO) 28.1 %; MEAN CORPUSCULAR HEMOGLOBIN 27.3 pg (27.0-31.0); MEAN CORPUSCULAR HGB CONC 31.6 g/dL (32.0-36.0); MEAN CORPUSCULAR VOLUME 86.1 fL (81.0-99.0); MEAN PLATELET VOLUME 9.9 fL (7.9-10.8); MONOCYTES # (AUTO) 0.4 10^3/uL (0.0-1.0); MONOCYTES % (AUTO) 6.6 %; NEUTROPHILS # (AUTO) 4.1 10^3/uL (1.5-6.6); NEUTROPHILS % (AUTO) 64.2 %; PLT - PLATELET COUNT 221 10^3/uL (130-450); RED BLOOD COUNT 4.11 10^6/uL (4.20-5.40); WHITE BLOOD COUNT 6.3 x10^3/uL (4.8-10.8)
[2019-05-28 05:12] LABS: CALCIUM 9.2 mg/dL (8.5-10.3); CREATININE 0.8 mg/dL (0.4-1.0); MAGNESIUM 1.9 mg/dL (1.7-2.8)
[2019-05-28] MEDS ORDERED: VENLAFAXINE HCL 150 MG PO SCH (09:00)
[2019-05-28] MEDS: ENOXAPARIN 40 MG/0.4 ML SYRINGE SUBQ SCH (09:19)
[2019-05-28] MEDS: tiZANidine 4 MG TABLET PO SCH ×2 (09:19→20:50)
[2019-05-28] MEDS: VENLAFAXINE ER 75 MG CAPSULE PO SCH (09:19)
[2019-05-28] MEDS: FAMOTIDINE 20 MG TABLET PO SCH ×2 (09:19→20:51)
[2019-05-28] MEDS: lisinopriL 20 MG TABLET PO SCH (09:19)
[2019-05-28] MEDS: cefTRIAXone 1 GM in SODIUM CHLORIDE 0.9% MINIBAG 100 ML IV SCH (11:22)
--- NOTE | 2019-05-28 15:54 | PROVIDER PROGRESS NOTE ---
Assessment/Plan - Problem List (1) Altered mental status Qualifiers: Altered mental status type: delirium Qualified Code(s): R41.0 - Disorientation, unspecified Assessment/Plan: 05/28 pt is still confused. CT of head was unremarkable. pt has no focal neurological deficit continue treatment of infection, UTI neur check pt present AMS, did not answer any questions when I and nurse asked her. pt has hx of AMS, resolved by her own in hospital setting, pt did not present focal neurological deficits. continue treatment of underline of infection, likely UTI nurse and staff, team support, and orient to pt gently IVF of NS (2) UTI (lower urinary tract infection) Conclusion/Plan: UA culture is pending, continue antibiotics, order of UA again because of skin cell contamination UA analysis reveals skin cell contamination, will repeat UA, ER already start antibiotics. pt is confused. otherwise will continue antibiotics until new UA approve. (3) Asthma Conclusion/Plan: hx of Asthma, now pt is stable. order PRN of albuterol (4) Depression Conclusion/Plan: pt has hx of depression, resume home meds, neuro check (5) Chronic back pain Conclusion/Plan: pt has hx of chronic back pain, stable, continue pain control (3) Asthma Qualifiers: Asthma severity: mild intermittent Asthma complication type: with acute e xacerbation - Current Meds Current Meds: Current Medications Generic Name Dose Route Start Last Admin Trade Name Freq PRN Reason Stop Dose Admin Clonazepam 0.5 mg 05/27/19 16:44 05/27/19 19:26 Klonopin PO 0.5 mg BID PRN Administration Anxiety Enoxaparin Sodium 40 mg 05/28/19 09:00 05/28/19 09:19 Lovenox SUBQ 40 mg DAILY GAGAN Administration Famotidine 20 mg 05/27/19 21:00 05/28/19 09:19 Pepcid PO 20 mg BID GAGAN Administration Haloperidol 0.5 mg 05/28/19 01:39 05/28/19 02:11 Haldol Inj IVP 0.5 mg Q6H PRN Administration Agitation Hydralazine HCl 10 mg 05/27/19 18:12 05/27/19 18:35 Apresoline Inj IVP 10 mg QID PRN Administration Hypertensive Emergency Ceftriaxone Sodium 1 gm/ 100 mls @ 200 mls/hr 05/28/19 09:00 05/28/19 12:01 Sodium Chloride IV Infused DAILY GAGAN Infusion Lisinopril 20 mg 05/27/19 18:00 05/28/19 09:19 Zestril PO 20 mg DAILY GAGAN Administration Sodium Chloride 10 ml 05/28/19 01:00 05/28/19 11:22 Normal Saline Flush 0.9% IVP 10 ml 0100,0900,1700 GAGAN Administration Tizanidine HCl 2 mg 05/27/19 21:00 05/28/19 09:19 Zanaflex PO 2 mg BID GAGAN Administration Trazodone HCl 300 mg 05/27/19 21:00 05/27/19 20:57 Desyrel PO 300 mg QPM GAGAN Administration Venlafaxine HCl 225 mg 05/28/19 09:00 05/28/19 09:19 Effexor Er PO 225 mg DAILY GAGAN Administration - Lab Result Fish Bone Diagrams: 05/28/19 04:40 05/28/19 04:40 - Additional Planning My Orders: My Active Orders 05/27/19 16:31 Activity Orders [RC] Q2HR IO [RC] IOSHIFT Initiate Bowel Care Protocol [RC] .protocol Initiate Flu Vaccine Screening [RC] ONCE Initiate Line Care Protocol [RC] QSHIFT Initiate Personal Care Protoco [RC] .protocol Initiate Pneumonia Vaccine Scr [RC] ONCE Oxygen Therapy [RC] Routine Vital Signs [RC] Q4HR Acetaminophen [Tylenol] 650 mg PO Q4HR PRN Ondansetron Inj [Zofran Inj] 4 mg IVP Q6HR PRN Sodium Chloride Flush 0.9% [Normal Saline Flush 0.9%] 10 ml IVP PRN PRN Code Status [OTHERS] Routine Condition of Patient [OTHERS] Routine DVT Prophylaxis [OTHERS] Routine 05/27/19 16:38 IV Insert [RC] .ONCE SCDs [RC] QSHIFT 05/27/19 16:44 HYDROcodone/ACET 10/325 [[place] 10 mg/325 mg] 1 tab PO TID PRN clonazePAM [KlonoPIN] 0.5 mg PO BID PRN 05/27/19 16:50 Neuro Check [RC] QSHIFT Albuterol 2.5 mg INH RTQ4H PRN Ipratropium/Albuterol [Duoneb] 3 ml INH RTQID PRN 05/27/19 18:00 lisinopriL [Zestril] 20 mg PO DAILY 05/27/19 18:12 hydrALAZINE INJ [Apresoline Inj] 10 mg IVP QID PRN 05/27/19 18:16 Telemetry- [RC] Q4HR 05/27/19 21:00 Famotidine [Pepcid] 20 mg PO BID tiZANidine [Zanaflex] 2 mg PO BID traZODone [Desyrel] 300 mg PO QPM 05/27/19 Dinner Regular Diet [DIET] 05/28/19 UA w/ MICROSCOPIC, CULT IF [URIN] Urgent 05/28/19 01:00 Sodium Chloride Flush 0.9% [Normal Saline Flush 0.9%] 10 ml IVP 0100,0900,1700 05/28/19 09:00 Enoxaparin [Lovenox] 40 mg SUBQ DAILY Venlafaxine ER [Effexor ER] 225 mg PO DAILY cefTRIAXone [Rocephin] 1 gm Sodium Chloride 0.9% Minibag [Normal Saline 0.9% Minibag] 100 ml IV DAILY 05/28/19 09:34 RT [Nebulizer/MDI Tx.] [RC] .QID PRN/ Q4 PRN 05/29/19 05:00 BMP - BASIC METABOLIC PANEL [CHEM] DAILYLAB CBC - COMP BLD CT W/AUTO DIFF [HEME] DAILYLAB 05/30/19 05:00 BMP - BASIC METABOLIC PANEL [CHEM] DAILYLAB CBC - COMP BLD CT W/AUTO DIFF [HEME] DAILYLAB 05/31/19 05:00 BMP - BASIC METABOLIC PANEL [CHEM] DAILYLAB CBC - COMP BLD CT W/AUTO DIFF [HEME] DAILYLAB Objective Vital Signs: Vital Signs - 24 hr 05/27/19 05/27/19 05/27/19 15:53 16:01 17:02 Temperature Heart Rate 84 73 84 Heart Rate [ Brachial] Respiratory 20 18 18 Rate Blood Pressure 193/91 H 161/91 H 194/79 H Blood Pressure [Left Brachial artery] Blood Pressure [Right Brachial artery] O2 Saturation 98 100 100 05/27/19 05/27/19 05/27/19 17:30 18:35 18:45 Temperature 36.5 C Heart Rate Heart Rate [ 84 Brachial] Respiratory 16 Rate Blood Pressure 184/92 H 174/72 H Blood Pressure 186/77 H 174/72 H [Left Brachial artery] Blood Pressure [Right Brachial artery] O2 Saturation 100 05/27/19 05/27/19 05/27/19 18:50 18:55 19:10 Temperature Heart Rate Heart Rate [ Brachial] Respiratory Rate Blood Pressure Blood Pressure 174/69 H 159/66 H 178/72 H [Left Brachial artery] Blood Pressure [Right Brachial artery] O2 Saturation 05/27/19 05/27/19 05/27/19 19:25 19:47 20:38 Temperature 37.3 C Heart Rate Heart Rate [ 108 H 104 H Brachial] Respiratory 16 Rate Blood Pressure Blood Pressure 150/61 H 157/59 H 143/71 H [Left Brachial artery] Blood Pressure [Right Brachial artery] O2 Saturation 97 05/27/19 05/28/19 05/28/19 23:59 03:06 08:09 Temperature 36.5 C 37.1 C 37.5 C Heart Rate Heart Rate [ 97 100 84 Brachial] Respiratory 18 18 18 Rate Blood Pressure Blood Pressure 160/59 H [Left Brachial artery] Blood Pressure 164/78 H 152/89 H [Right Brachial artery] O2 Saturation 97 98 96 05/28/19 05/28/19 05/28/19 09:15 11:52 15:18 Temperature 37.1 C 37.1 C Heart Rate 94 Heart Rate [ 82 80 Brachial] Respiratory 18 18 18 Rate Blood Pressure Blood Pressure [Left Brachial artery] Blood Pressure 131/56 H 102/79 [Right Brachial artery] O2 Saturation 97 97 Oxygen O2 Source [Without Activity] Room air O2 Source Room air I&O (Last 24 Hrs): Intake and Output Totals x24h 05/26/19 05/27/19 05/28/19 23:59 23:59 23:59 Intake Total 1278 300 Output Total 350 Balance 1278 -50 General: Alert, No acute distress HEENT: Atraumatic Neck: Supple Lymphatic: no adenopathy Neuro: Alert, Disoriented, Non Focal Cardiovascular: Regular rate, Normal S1, Normal S2 Respiratory: Chest non-tender, No respiratory distress, Breath sounds nml Abdomen: Normal bowel sounds, Soft Extremities: No edema, Normal pulses - Results Results: Laboratory Results WBC 6.3 x10^3/uL (4.8-10.8) 05/28/19 04:40 RBC 4.11 10^6/uL (4.20-5.40) L 05/28/19 04:40 Hgb 11.2 g/dL (12.0-16.0) L 05/28/19 04:40 Hct 35.4 % (37.0-47.0) L 05/28/19 04:40 MCV 86.1 fL (81.0-99.0) 05/28/19 04:40 MCH 27.3 pg (27.0-31.0) 05/28/19 04:40 MCHC 31.6 g/dL (32.0-36.0) L 05/28/19 04:40 RDW 14.0 % (12.0-15.0) 05/28/19 04:40 Plt Count 221 10^3/uL (130-450) 05/28/19 04:40 MPV 9.9 fL (7.9-10.8) 05/28/19 04:40 Neut # (Auto) 4.1 10^3/uL (1.5-6.6) 05/28/19 04:40 Lymph # (Auto) 1.8 10^3/uL (1.5-3.5) 05/28/19 04:40 [place] # (Auto) 0.4 10^3/uL (0.0-1.0) 05/28/19 04:40 Eos # (Auto) 0.0 10^3/uL (0.0-0.7) 05/28/19 04:40 Baso # (Auto) 0.0 10^3/uL (0.0-0.1) 05/28/19 04:40 Absolute Nucleated RBC 0.00 x10^3/uL 05/28/19 04:40 Nucleated RBC % 0.0 /100WBC 05/28/19 04:40 PT 11.9 secs (9.9-12.6) 05/27/19 13:30 INR 1.0 (0.8-1.2) 05/27/19 13:30 Sodium 139 mmol/L (135-145) 05/28/19 04:40 Potassium 3.9 mmol/L (3.5-5.0) 05/28/19 04:40 Chloride 107 mmol/L (101-111) 05/28/19 04:40 Carbon Dioxide 26 mmol/L (21-32) 05/28/19 04:40 Anion Gap 6.0 (6-13) 05/28/19 04:40 BUN 20 mg/dL (6-20) 05/28/19 04:40 Creatinine 0.8 mg/dL (0.4-1.0) 05/28/19 04:40 Estimated GFR (MDRD) 70 (>89) L 05/28/19 04:40 Glucose 101 mg/dL (70-100) H 05/28/19 04:40 Lactic Acid 1.4 mmol/L (0.5-2.2) 05/27/19 16:00 Calcium 9.2 mg/dL (8.5-10.3) 05/28/19 04:40 Magnesium 1.9 mg/dL (1.7-2.8) 05/28/19 04:40 Total Bilirubin 0.8 mg/dL (0.2-1.0) 05/27/19 13:30 AST 17 IU/L (10-42) 05/27/19 13:30 ALT 14 IU/L (10-60) 05/27/19 13:30 Alkaline Phosphatase 42 IU/L (42-121) 05/27/19 13:30 Total Creatine Kinase 64 IU/L (22-269) 05/27/19 13:30 Troponin I High Sens 19.2 ng/L (2.3-14.8) H* 05/28/19 04:40 Total Protein 7.1 g/dL (6.7-8.2) 05/27/19 13:30 Albumin 4.4 g/dL (3.2-5.5) 05/27/19 13:30 Globulin 2.7 g/dL (2.1-4.2) 05/27/19 13:30 Albumin/Globulin Ratio 1.6 (1.0-2.2) 05/27/19 13:30 Lipase 45 U/L (22-51) 05/27/19 13:30 TSH 0.18 uIU/mL (0.34-5.60) L 05/27/19 13:30 Free T4 1.06 ng/dL (0.58-1.64) 05/28/19 04:40 Urine Color YELLOW 05/27/19 14:35 Urine Clarity CLOUDY (CLEAR) 05/27/19 14:35 Urine pH 6.0 PH (5.0-7.5) 05/27/19 14:35 Ur Specific [place] 1.025 (1.002-1.030) 05/27/19 14:35 Urine Protein TRACE mg/dL (NEGATIVE) 05/27/19 14:35 Urine Glucose (UA) NEGATIVE mg/dL (NEGATIVE) 05/27/19 14:35 Urine Ketones >=80 mg/dL (NEGATIVE) H 05/27/19 14:35 Urine Occult Blood LARGE (NEGATIVE) H 05/27/19 14:35 Urine Nitrite NEGATIVE (NEGATIVE) 05/27/19 14:35 Urine Bilirubin NEGATIVE (NEGATIVE) 05/27/19 14:35 Urine Urobilinogen 0.2 (NORMAL) E.U./dL (NORMAL) 05/27/19 14:35 Ur Leukocyte Esterase LARGE (NEGATIVE) H 05/27/19 14:35 Urine RBC TNTC /HPF (0-5) H 05/27/19 14:35 Urine WBC >25 /HPF (0-5) H 05/27/19 14:35 Urine WBC Clumps PRESENT 05/27/19 14:35 Ur Squamous Epith Cells MANY Squamous (<= Few) H 05/27/19 14:35 Urine Bacteria Many /HPF (None Seen) H 05/27/19 14:35 Ur Microscopic Review INDICATED 05/27/19 14:35 Urine Culture Comments NOT INDICATED 05/27/19 14:35 Salicylates < 6.0 mg/dL 05/27/19 13:30 Urine Opiates Screen NEGATIVE (NEGATIVE) 05/27/19 14:35 Ur Oxycodone Screen NEGATIVE (NEGATIVE) 05/27/19 14:35 Urine Methadone Screen NEGATIVE (NEGATIVE) 05/27/19 14:35 Ur Propoxyphene Screen NEGATIVE (NEGATIVE) 05/27/19 14:35 Acetaminophen < 10 ug/mL (10-30) L 05/27/19 13:30 Ur Barbiturates Screen NEGATIVE (NEGATIVE) 05/27/19 14:35 Ur Tricyclics Screen NEGATIVE (NEGATIVE) 05/27/19 14:35 Ur Phencyclidine Scrn NEGATIVE (NEGATIVE) 05/27/19 14:35 Ur Amphetamine Screen NEGATIVE (NEGATIVE) 05/27/19 14:35 U Methamphetamines Scrn NEGATIVE (NEGATIVE) 05/27/19 14:35 U Benzodiazepines Scrn NEGATIVE (NEGATIVE) 05/27/19 14:35 Urine Cocaine Screen NEGATIVE (NEGATIVE) 05/27/19 14:35 U Cannabinoids Screen NEGATIVE (NEGATIVE) 05/27/19 14:35 Ethyl Alcohol < 5.0 mg/dL 05/27/19 13:30 - Procedures Procedures: Procedures EXCISION OF SIGMOID COLON, ENDO (05/16/15) INSPECTION OF LOWER INTESTINAL TRACT, ENDO (02/10/19) Sepsis Event Note (H) - Evaluation Current Stage of Sepsis: Ruled out ABX Reporting Has patient been on IV antibiotics over the past 48 hours?: Yes Current Medications - Current Medications Current Medications: Active Medications Acetaminophen (Tylenol) 650 mg PO Q4HR PRN PRN Reason: Pain 1 to 4 Hydrocodone Bitart/Acetaminophen ([place] 10 Mg/325 Mg) 1 tab PO TID PRN PRN Reason: PAIN Albuterol () 2.5 mg INH RTQ4H PRN PRN Reason: Wheezing Albuterol/Ipratropium (Duoneb) 3 ml INH RTQID PRN PRN Reason: Shortness of Air/Wheezing Clonazepam (Klonopin) 0.5 mg PO BID PRN PRN Reason: Anxiety Last Admin: 05/27/19 19:26 Dose: 0.5 mg Enoxaparin Sodium (Lovenox) 40 mg SUBQ DAILY [facility] Last Admin: 05/28/19 09:19 Dose: 40 mg Famotidine (Pepcid) 20 mg PO BID [facility] Last Admin: 05/28/19 09:19 Dose: 20 mg Haloperidol (Haldol Inj) 0.5 mg IVP Q6H PRN PRN Reason: Agitation Last Admin: 05/28/19 02:11 Dose: 0.5 mg Hydralazine HCl (Apresoline Inj) 10 mg IVP QID PRN PRN Reason: Hypertensive Emergency Last Admin: 05/27/19 18:35 Dose: 10 mg Ceftriaxone Sodium 1 gm/ (Sodium Chloride) 100 mls @ 200 mls/hr IV DAILY [facility] Last Infusion: 05/28/19 12:01 Dose: Infused Lisinopril (Zestril) 20 mg PO DAILY [facility] Last Admin: 01/03/20 09:19 Dose: 20 mg Ondansetron HCl (Zofran Inj) 4 mg IVP Q6HR PRN PRN Reason: Nausea / Vomiting Sodium Chloride (Normal Saline Flush 0.9%) 10 ml IVP PRN PRN PRN Reason: NEEDED PER PROVIDER ORDERS Sodium Chloride (Normal Saline Flush 0.9%) 10 ml IVP 0100,0900,1700 [facility] Last Admin: 05/28/19 11:22 Dose: 10 ml Tizanidine HCl (Zanaflex) 2 mg PO BID [facility] Last Admin: 05/28/19 09:19 Dose: 2 mg Trazodone HCl (Desyrel) 300 mg PO QPM [facility] Last Admin: 05/27/19 20:57 Dose: 300 mg Venlafaxine HCl (Effexor Er) 225 mg PO DAILY [facility] Last Admin: 05/28/19 09:19 Dose: 225 mg Alendronate Sodium [Fosamax] 70 mg PO Q7D 05/15/15 Multivitamin [Multivitamins] 1 each PO DAILY 05/15/15 Cetirizine [ZyrTEC] 10 mg PO DAILY 05/27/19 Gabapentin 800 mg PO TID 05/27/19 Hydrocodone/Acetaminophen [Hydrocodon-Acetaminophn 10-325] 1 tab PO TID PRN 05/27/19 Lactulose 10 gm PO DAILY PRN 05/27/19 Meloxicam 15 mg PO DAILY 05/27/19 Tizanidine HCl 2 mg PO BID 05/27/19 Trazodone HCl 300 mg PO QPM 05/27/19 Venlafaxine ER [Effexor ER] 75 mg PO DAILY 05/27/19 Venlafaxine HCl [Venlafaxine HCl ER] 150 mg PO DAILY 05/27/19 clonazePAM [Clonazepam] 0.5 mg PO BID PRN 05/27/19 lisinopriL [Lisinopril] 20 mg PO DAILY 05/27/19
[2019-05-28] MEDS: SODIUM CHLORIDE 0.9% 1,000 ML IV SCH (20:46)
[2019-05-28] MEDS: traZODone 50 MG TABLET PO SCH (20:50)
[2019-05-28 22:14] LABS: BILIRUBIN,URINE NEGATIVE (NEGATIVE); GLUCOSE, URINE (UA) NEGATIVE (NEGATIVE); KETONES,URINE (UA) 15 mg/dL (NEGATIVE); LEUKOCYTE ESTERASE, URINE NEGATIVE (NEGATIVE); NITRITE,URINE NEGATIVE (NEGATIVE); OCCULT BLOOD,URINE NEGATIVE (NEGATIVE); PH,URINE 6.5 PH (5.0-7.5); PROTEIN,URINE NEGATIVE (NEGATIVE); UROBILINOGEN,URINE 0.2 (NORMAL) E.U./dL (NORMAL)
[2019-05-28 22:26] LABS: BACTERIA,URINE None Seen /HPF (None Seen); CLARITY,URINE HAZY (CLEAR); MUCUS,URINE Few Strands; RBC,URINE 0-5 /HPF (0-5); SQUAMOUS EPITHELIAL CELL,UR NONE SEEN (<= Few)
[2019-05-29] MEDS: SODIUM CHLORIDE FLUSH 0.9% 10 ML SYRINGE IVP SCH ×3 (02:56→18:49)
[2019-05-29 06:21] LABS: BASOPHILS % (AUTO) 0.6 %; EOSINOPHILS # (AUTO) 0.1 10^3/uL (0.0-0.7); EOSINOPHILS % (AUTO) 2.3 %; HGB - HEMOGLOBIN 10.5 g/dL (12.0-16.0); LYMPHOCYTES # (AUTO) 1.8 10^3/uL (1.5-3.5); LYMPHOCYTES % (AUTO) 34.7 %; MEAN CORPUSCULAR HEMOGLOBIN 27.3 pg (27.0-31.0); MEAN CORPUSCULAR HGB CONC 31.8 g/dL (32.0-36.0); MEAN CORPUSCULAR VOLUME 85.9 fL (81.0-99.0); MEAN PLATELET VOLUME 9.7 fL (7.9-10.8); MONOCYTES # (AUTO) 0.4 10^3/uL (0.0-1.0); MONOCYTES % (AUTO) 6.7 %; NEUTROPHILS # (AUTO) 2.9 10^3/uL (1.5-6.6); NEUTROPHILS % (AUTO) 55.5 %; PLT - PLATELET COUNT 194 10^3/uL (130-450); RED BLOOD COUNT 3.84 10^6/uL (4.20-5.40); RED CELL DISTRIBUTION WIDTH 14.1 % (12.0-15.0); WHITE BLOOD COUNT 5.2 x10^3/uL (4.8-10.8)
[2019-05-29 06:31] LABS: CALCIUM 8.5 mg/dL (8.5-10.3); CREATININE 0.7 mg/dL (0.4-1.0)
[2019-05-29] MEDS: SODIUM CHLORIDE 0.9% 1,000 ML IV SCH (08:34)
[2019-05-29] MEDS: tiZANidine 4 MG TABLET PO SCH ×2 (08:36→20:49)
[2019-05-29] MEDS: FAMOTIDINE 20 MG TABLET PO SCH ×2 (08:37→20:49)
[2019-05-29] MEDS: TAMSULOSIN 0.4 MG CAPSULE PO SCH (08:37)
[2019-05-29] MEDS: ENOXAPARIN 40 MG/0.4 ML SYRINGE SUBQ SCH (08:37)
[2019-05-29] MEDS: cefTRIAXone 1 GM in SODIUM CHLORIDE 0.9% MINIBAG 100 ML IV SCH (08:37)
[2019-05-29] MEDS: VENLAFAXINE ER 75 MG CAPSULE PO SCH (08:37)
[2019-05-29] MEDS: lisinopriL 20 MG TABLET PO SCH (08:37)
--- NOTE | 2019-05-29 13:23 | Ultrasound Report ---
Reason: evaluate for hydronephrosis Procedure Date: 05/29/2019 Accession Number: [id number] / [id number] Procedure: US - Retroperitoneal CPT Code: Final Report FULL RESULT: EXAM: RENAL ULTRASOUND EXAM DATE: 05/29/2019 11:22 AM. CLINICAL HISTORY: Evaluate for hydronephrosis. COMPARISON: None. TECHNIQUE: Real-time scanning was performed with static images obtained. FINDINGS: Right Kidney: 8.9 x 3.8 x 5.4 cm. Normal echotexture with no stones, contour-deforming masses, or hydronephrosis. Lobular contour. Left Kidney: 10.7 x 4.5 x 4.2 cm. Prominent contour bulge in the mid left kidney corresponding to a hypoechoic region measuring 1.8 x 1.7 x 1.3 cm. As with the adjacent renal parenchyma, flow was noted. No stones or hydronephrosis. Bladder: Borges catheter. Neither ureteral jet is seen. Bladder is empty. Other: None. IMPRESSION: 1. Prominent contour lobulation in the mid left kidney in a characteristic location for a dromedary hump. However, this appears slightly more rounded and conspicuous than typically seen. Given the ambiguity, recommend contrast enhanced CT to exclude an underlying mass. 2. No stones or hydronephrosis. 3. Borges catheter noted in the bladder. This limits evaluation of the bladder. RADIA
--- NOTE | 2019-05-29 19:58 | PROVIDER PROGRESS NOTE ---
Subjective - Prog Note Date Prog Note Date: 05/29/19 Prog Note Time: 08:00 - Subjective Pt reports feeling: Improved Subjective: Kristi complains of needing to take care of her pets at home and fears that her caregiver will no longer help her at home. She denies dysuria, headaches, chest pain, nausea, vomiting, diarrhea, abdominal pain or new joint pain. She admits to low back pain and wishes to get out of bed. Current Medications - Current Medications Current Medications: Active Medications: Acetaminophen (Tylenol) 650 mg PO Q4HR PRN Hydrocodone Bitart/Acetaminophen ([place] 10 Mg/325 Mg) 1 tab PO TID PRN Albuterol () 2.5 mg INH RTQ4H PRN Albuterol/Ipratropium (Duoneb) 3 ml INH RTQID PRN Cetirizine HCl (Zyrtec) 10 mg PO DAILY [facility] Clonazepam (Klonopin) 0.5 mg PO BID PRN Enoxaparin Sodium (Lovenox) 40 mg SUBQ DAILY [facility] Famotidine (Pepcid) 20 mg PO BID [facility] Haloperidol (Haldol Inj) 0.5 mg IVP Q6H PRN Hydralazine HCl (Apresoline Inj) 10 mg IVP QID PRN Ceftriaxone Sodium 1 gm/ (Sodium Chloride) 100 mls @ 200 mls/hr IV DAILY [facility] Lisinopril (Zestril) 20 mg PO DAILY [facility] Ondansetron HCl (Zofran Inj) 4 mg IVP Q6HR PRN Polyethylene Glycol (Miralax) 17 gm PO DAILY [facility] Tamsulosin HCl (Flomax) 0.4 mg PO DAILY [facility] Tizanidine HCl (Zanaflex) 2 mg PO BID [facility] Trazodone HCl (Desyrel) 300 mg PO QPM [facility] Venlafaxine HCl (Effexor Er) 225 mg PO DAILY [facility] HOME meds: Alendronate Sodium [Fosamax] 70 mg PO Q7D 05/15/15 Multivitamin [Multivitamins] 1 each PO DAILY 05/15/15 Cetirizine [ZyrTEC] 10 mg PO DAILY 05/27/19 Gabapentin 800 mg PO TID 05/27/19 Hydrocodone/Acetaminophen [Hydrocodon-Acetaminophn 10-325] 1 tab PO TID PRN 05/27/19 Lactulose 10 gm PO DAILY PRN 05/27/19 Meloxicam 15 mg PO DAILY 05/27/19 Tizanidine HCl 2 mg PO BID 05/27/19 Trazodone HCl 300 mg PO QPM 05/27/19 Venlafaxine ER [Effexor ER] 75 mg PO DAILY 05/27/19 Venlafaxine HCl [Venlafaxine HCl ER] 150 mg PO DAILY 05/27/19 clonazePAM [Clonazepam] 0.5 mg PO BID PRN 05/27/19 lisinopriL [Lisinopril] 20 mg PO DAILY 05/27/19 Objective - Vital Signs/Intake & Output Reviewed Vital Signs: Yes Vital Signs: Vital Signs x48h Temp Pulse Resp BP Pulse Ox 05/29/19 15:41 36.3 C L 78 20 149/70 H 95 05/29/19 13:37 36.8 C 93 16 138/55 H 95 Intake & Output: Intake & Output 05/26/19 05/27/19 05/28/19 05/29/19 23:59 23:59 23:59 23:59 Intake Total 8021 813 3076.000 Output Total 600 500 Balance 1278 -150 1490.000 - Objective General Appearance: positive: Alert, Mild distress Eyes Bilateral: positive: No lid inflammation Eyes: OU Conjunctivae pale, OU Scleral icterus ENT: positive: Pharynx nml, Dry mucous membranes Neck: positive: Thyroid nml, Trachea midline Respiratory: positive: Chest non-tender, No respiratory distress, Other (expiratory crackles in low bilateral bases) Cardiovascular: positive: Regular rate & rhythm, JVD present (slight), Systolic murmur, Decreased pulse(s) Peripheral Pulses: 1+ Radial (R), 1+ Radial (L) Abdomen: positive: Nml bowel sounds, Hepatomegaly, Other (rounded, soft) Back: positive: Nml inspection, CVA tenderness (R), CVA tenderness (L) (worse on left flank), Other (chronic back pain) Extremities: positive: Non-tender, Pedal edema, Joint swelling (chronic) Neurologic/Psychiatric: positive: Disoriented to time, Weakness, Sensory loss, Depressed mood/affect Reflexes: Bicep (R): 2+, Bicep (L): 2+ - Lab Results Fish Bones: 05/30/19 04:56 05/30/19 04:56 Other Labs: Lab Results x24hrs 05/29/19 05/29/19 05/28/19 Range/Units 06:03 06:03 22:04 WBC 5.2 (4.8-10.8) x10^3/uL RBC 3.84 L (4.20-5.40) 10^6/uL Hgb 10.5 L (12.0-16.0) g/dL Hct 33.0 L (37.0-47.0) % MCV 85.9 (81.0-99.0) fL MCH 27.3 (27.0-31.0) pg MCHC 31.8 L (32.0-36.0) g/dL RDW 14.1 (12.0-15.0) % Plt Count 194 (130-450) 10^3/uL MPV 9.7 (7.9-10.8) fL Neut # (Auto) 2.9 (1.5-6.6) 10^3/uL Lymph # (Auto) 1.8 (1.5-3.5) 10^3/uL [place] # (Auto) 0.4 (0.0-1.0) 10^3/uL Eos # (Auto) 0.1 (0.0-0.7) 10^3/uL Baso # (Auto) 0.0 (0.0-0.1) 10^3/uL Absolute Nucleated RBC 0.00 x10^3/uL Nucleated RBC % 0.0 /100WBC Sodium 142 (135-145) mmol/L Potassium 3.4 L (3.5-5.0) mmol/L Chloride 112 H (101-111) mmol/L Carbon Dioxide 24 (21-32) mmol/L Anion Gap 6.0 (6-13) BUN 18 (6-20) mg/dL Creatinine 0.7 (0.4-1.0) mg/dL Estimated GFR (MDRD) 82 L (>89) Glucose 101 H (70-100) mg/dL Calcium 8.5 (8.5-10.3) mg/dL Urine Color YELLOW Urine Clarity HAZY (CLEAR) Urine pH 6.5 (5.0-7.5) PH Ur Specific [place] 1.025 (1.002-1.030) Urine Protein NEGATIVE (NEGATIVE) mg/dL Urine Glucose (UA) NEGATIVE (NEGATIVE) mg/dL Urine Ketones 15 H (NEGATIVE) mg/dL Urine Occult Blood NEGATIVE (NEGATIVE) Urine Nitrite NEGATIVE (NEGATIVE) Urine Bilirubin NEGATIVE (NEGATIVE) Urine Urobilinogen 0.2 (NORMAL) (NORMAL) E.U./dL Ur Leukocyte Esterase NEGATIVE (NEGATIVE) Urine RBC 0-5 (0-5) /HPF Urine WBC 4-5 (0-5) /HPF Ur Squamous Epith Cells NONE SEEN (<= Few) Urine Bacteria None Seen (None Seen) /HPF Urine Mucus Few Strands Urine Culture Comments NOT INDICATED - Diagnostic Imaging Diagnostic Imaging Comments: Kidney US pending ABX Reporting Has patient been on IV antibiotics over the past 48 hours?: Yes Sepsis Event Note (H) - Evaluation Current Stage of Sepsis: Ruled out Assessment/Plan - Problem List (1) Pyelonephritis Impression: -Intermittent flank pain, worse on left -Altered mental status, improved since admission -Urinary retention, continues with an indwelling henry -Kidney US is pending -Treating for UTI, continues on Rocephin -Patient admits to long standing dysuria, polypharmacy (high dose gabapentin) Acute encephalopathy -Little to no speech upon admission per H&P documentation -Very chatty today, improved mentation - Still not completely orientated -Continue to monitor Dehydration -Based on labs, infection, altered mental status, concentrated urine appearance -Several medications with anticholinergic effects -Continue gentle IVFs, monitor for improvement Elevated troponin -Mild elevation in troponin, remained flat at (16.3, 18.6, & 19.2 consecutively) -Patient denies chest pain, no respiratory distress -Likely due to infection, continue to monitor for symptoms Urinary retention -Patient admits to being incontinent at home, unaware of retention -Now being treated for UTI -Started on Flomax -Attempt voiding trial tomorrow -Kidney US is pending Asthma -No respiratory distress -No home inhalers listed -Continue to monitor, continue Zyrtec Depression with anxiety -Takes Effexor, clonazepam, gabapentin and tizanidine at home -Flat affect, improved speech today, less confusion -Monitor for improvement, resume gabapentin in the AM Chronic back pain -Takes hydrocodone/APAP at home, meloxicam and gabapentin at home -Continues on hydrocodone/APAP while here -PT evaluation is pending Peptic ulcer disease -No PPI or H2 skip at home -Fosamax may be contraindicated with PUD -No complaints of heartburn or chest pain -Monitor for symptoms, continue Pepcid, suggest continuing on discharge Polypharmacy -Several potential sedating medications from home; Effexor, clonazepam, gabapentin hydrocodone/APAP, meloxicam, and tizanidine at home -Gabapentin has been on hold, plan to resume in the AM to prevent withdrawal Impaired home maintenance management -Patient states she is worried about her caregiver, has guilt regarding her current living situation due her inability to care for herself -Social work consult, likely placement
[2019-05-29] MEDS: traZODone 50 MG TABLET PO SCH (20:48)
[2019-05-30] MEDS: SODIUM CHLORIDE FLUSH 0.9% 10 ML SYRINGE IVP SCH ×4 (00:35→23:30)
[2019-05-30 05:46] LABS: BASOPHILS % (AUTO) 0.6 %; EOSINOPHILS # (AUTO) 0.2 10^3/uL (0.0-0.7); EOSINOPHILS % (AUTO) 4.5 %; HGB - HEMOGLOBIN 10.4 g/dL (12.0-16.0); LYMPHOCYTES # (AUTO) 1.5 10^3/uL (1.5-3.5); MEAN CORPUSCULAR HEMOGLOBIN 27.2 pg (27.0-31.0); MEAN CORPUSCULAR HGB CONC 30.9 g/dL (32.0-36.0); MEAN PLATELET VOLUME 10.1 fL (7.9-10.8); MONOCYTES # (AUTO) 0.3 10^3/uL (0.0-1.0); NEUTROPHILS # (AUTO) 2.9 10^3/uL (1.5-6.6); NEUTROPHILS % (AUTO) 58.7 %; PLT - PLATELET COUNT 187 10^3/uL (130-450); RED BLOOD COUNT 3.83 10^6/uL (4.20-5.40); RED CELL DISTRIBUTION WIDTH 14.1 % (12.0-15.0); WHITE BLOOD COUNT 4.9 x10^3/uL (4.8-10.8)
[2019-05-30 05:58] LABS: CALCIUM 8.8 mg/dL (8.5-10.3); CREATININE 0.6 mg/dL (0.4-1.0)
[2019-05-30] MEDS: GABAPENTIN 300 MG CAPSULE PO SCH ×3 (07:06→21:11)
[2019-05-30] MEDS: VENLAFAXINE ER 75 MG CAPSULE PO SCH (09:00)
[2019-05-30] MEDS: lisinopriL 20 MG TABLET PO SCH (09:00)
[2019-05-30] MEDS: FAMOTIDINE 20 MG TABLET PO SCH ×2 (09:00→20:54)
[2019-05-30] MEDS: tiZANidine 4 MG TABLET PO SCH ×2 (09:01→20:55)
[2019-05-30] MEDS: CETIRIZINE 10 MG TABLET PO SCH (09:01)
[2019-05-30] MEDS: ENOXAPARIN 40 MG/0.4 ML SYRINGE SUBQ SCH (09:01)
[2019-05-30] MEDS: TAMSULOSIN 0.4 MG CAPSULE PO SCH (09:01)
[2019-05-30] MEDS: polyethylene glycoL 3350 17 GM PACKET PO SCH (09:02)
[2019-05-30] MEDS: cefTRIAXone 1 GM in SODIUM CHLORIDE 0.9% MINIBAG 100 ML IV SCH (09:02)
--- NOTE | 2019-05-30 15:34 | PROVIDER PROGRESS NOTE ---
Subjective - Prog Note Date Prog Note Date: 05/30/19 Prog Note Time: 12:00 - Subjective Pt reports feeling: Improved Subjective: Kristi complains of the uncertainty of her upcoming discharge. She denies dysuria, headaches, chest pain, nausea, vomiting, diarrhea, abdominal pain or new joint pain. She was agreeable to work with PT today and her henry was removed during this exam. Current Medications - Current Medications Current Medications: Active Medications: Acetaminophen (Tylenol) 650 mg PO Q4HR PRN Hydrocodone Bitart/Acetaminophen ([place] 10 Mg/325 Mg) 1 tab PO TID PRN Albuterol/Ipratropium (Duoneb) 3 ml INH RTQID PRN Cetirizine HCl (Zyrtec) 10 mg PO DAILY [facility] Clonazepam (Klonopin) 0.5 mg PO BID PRN Enoxaparin Sodium (Lovenox) 40 mg SUBQ DAILY [facility] Famotidine (Pepcid) 20 mg PO BID [facility] Gabapentin (Neurontin) 300 mg PO TID [facility] Haloperidol (Haldol Inj) 0.5 mg IVP Q6H PRN Hydralazine HCl (Apresoline Inj) 10 mg IVP QID PRN Ceftriaxone Sodium 1 gm/ (Sodium Chloride) 100 mls @ 200 mls/hr IV DAILY [facility] Lisinopril (Zestril) 20 mg PO DAILY [facility] Ondansetron HCl 4 mg PO Q4HR PRN Polyethylene Glycol (Miralax) 17 gm PO DAILY [facility] Tamsulosin HCl (Flomax) 0.4 mg PO DAILY [facility] Tizanidine HCl (Zanaflex) 1 mg PO BID [facility] Trazodone HCl (Desyrel)150 mg PO QPM [facility] Venlafaxine HCl (Effexor Er) 225 mg PO DAILY [facility] HOME meds: Alendronate Sodium [Fosamax] 70 mg PO Q7D 05/15/15 Multivitamin [Multivitamins] 1 each PO DAILY 05/15/15 Cetirizine [ZyrTEC] 10 mg PO DAILY 05/27/19 Gabapentin 800 mg PO TID 05/27/19 Hydrocodone/Acetaminophen [Hydrocodon-Acetaminophn 10-325] 1 tab PO TID PRN 05/27/19 Lactulose 10 gm PO DAILY PRN 05/27/19 Meloxicam 15 mg PO DAILY 05/27/19 Tizanidine HCl 2 mg PO BID 05/27/19 Trazodone HCl 300 mg PO QPM 05/27/19 Venlafaxine ER [Effexor ER] 75 mg PO DAILY 05/27/19 Venlafaxine HCl [Venlafaxine HCl ER] 150 mg PO DAILY 05/27/19 clonazePAM [Clonazepam] 0.5 mg PO BID PRN 05/27/19 lisinopriL [Lisinopril] 20 mg PO DAILY 05/27/19 Objective - Vital Signs/Intake & Output Reviewed Vital Signs: Yes Vital Signs: Vital Signs x48h Pulse BP 05/30/19 10:32 85 155/82 H Intake & Output: Intake & Output 05/27/19 05/28/19 05/29/19 05/30/19 23:59 23:59 23:59 23:59 Intake Total 0164 610 3114.000 860 Output Total 600 750 550 Balance 1278 -150 2590.000 310 - Objective General Appearance: positive: No acute distress, Alert, Anxious Eyes Bilateral: positive: PERRL Eyes: OU Conjunctivae pale ENT: positive: Pharynx nml, No signs of dehydration Neck: positive: Nml inspection Respiratory: positive: Chest non-tender, No respiratory distress, Breath sounds nml Cardiovascular: positive: Regular rate & rhythm, No gallop, Systolic murmur Peripheral Pulses: 1+ Radial (R), 1+ Radial (L) Abdomen: positive: Non-tender, Nml bowel sounds, Guarding Back: positive: Nml inspection, CVA tenderness (R), CVA tenderness (L) Skin: positive: Color nml, No rash, Warm, Dry Extremities: positive: Non-tender, Full ROM, No pedal edema, Joint swelling Neurologic/Psychiatric: positive: Oriented x3, CN's nml (2-12), Motor nml, Sensation nml, Weakness, Depressed mood/affect, Other (baseline) Reflexes: Bicep (R): 3+, Bicep (L): 3+ - Lab Results Fish Bones: 05/30/19 04:56 05/30/19 04:56 Other Labs: Lab Results x24hrs 05/30/19 05/30/19 Range/Units 04:56 04:56 WBC 4.9 (4.8-10.8) x10^3/uL RBC 3.83 L (4.20-5.40) 10^6/uL Hgb 10.4 L (12.0-16.0) g/dL Hct 33.7 L (37.0-47.0) % MCV 88.0 (81.0-99.0) fL MCH 27.2 (27.0-31.0) pg MCHC 30.9 L (32.0-36.0) g/dL RDW 14.1 (12.0-15.0) % Plt Count 187 (130-450) 10^3/uL MPV 10.1 (7.9-10.8) fL Neut # (Auto) 2.9 (1.5-6.6) 10^3/uL Lymph # (Auto) 1.5 (1.5-3.5) 10^3/uL [place] # (Auto) 0.3 (0.0-1.0) 10^3/uL Eos # (Auto) 0.2 (0.0-0.7) 10^3/uL Baso # (Auto) 0.0 (0.0-0.1) 10^3/uL Absolute Nucleated RBC 0.00 x10^3/uL Nucleated RBC % 0.0 /100WBC Sodium 142 (135-145) mmol/L Potassium 3.6 (3.5-5.0) mmol/L Chloride 111 (101-111) mmol/L Carbon Dioxide 25 (21-32) mmol/L Anion Gap 6.0 (6-13) BUN 16 (6-20) mg/dL Creatinine 0.6 (0.4-1.0) mg/dL Estimated GFR (MDRD) 98 (>89) Glucose 102 H (70-100) mg/dL Calcium 8.8 (8.5-10.3) mg/dL ABX Reporting Has patient been on IV antibiotics over the past 48 hours?: Yes Sepsis Event Note (H) - Evaluation Current Stage of Sepsis: Ruled out Assessment/Plan - Problem List (1) Pyelonephritis Impression: -Intermittent flank pain, worse on left, improved -Altered mental status, improved since admission -Urinary retention, voiding trial is underway today -Kidney US shows no hydronephrosis -Treating for UTI, continues on IV Rocephin -Patient admits to long standing dysuria, polypharmacy (high dose gabapentin) Weakness -Physical therapy evaluation today recommends rehab stay at shelter facility with 24 hour care due to recent falls and self-neglect at home -Acute illness, progressive mental illness/dementia are all contributing factors Acute encephalopathy -Little to no speech upon admission per H&P documentation -Baseline paranoia, improved mentation - Still not completely orientated -Continue to monitor Dehydration -Based on labs, infection, altered mental status, concentrated urine appearance -Several medications with anticholinergic effects -Improved oral intake, eating meals -Moist mucous membrane appearance -Now capped IVFs, monitor for improvement Elevated troponin -Mild elevation in troponin, remained flat at (16.3, 18.6, & 19.2 consecutively) -Patient denies chest pain, no respiratory distress -Likely due to infection, continue to monitor for symptoms Urinary retention -Patient admits to being incontinent at home, unaware of retention -Now being treated for UTI -Continues on Flomax -Attempt voiding trial is underway -Kidney US shows no evidence of hydronephrosis -Bladder scans after voiding per nursing Asthma -No respiratory distress, no apparent shortness of breath while working with PT today -No home inhalers listed -Duo-nebs as needed -Continue to monitor, continue Zyrtec Depression with anxiety -Takes Effexor, clonazepam, gabapentin, trazodone, and tizanidine at home -Flat affect, improved speech, less confusion, baseline paranoia -Monitor for improvement, Gabapentin was resumed today at only 300 mg TID rather than 800 -Nightly trazodone was reduced from 300mg to 150mg Chronic back pain -Takes hydrocodone/APAP, meloxicam, tizanidine, and gabapentin at home -Continues on hydrocodone/APAP while here -PT evaluation today indicates SNF for rehab Peptic ulcer disease -No PPI or H2 skip at home -Fosamax may be contraindicated with PUD -No complaints of heartburn or chest pain -Monitor for symptoms, continue Pepcid, suggest continuing on discharge Polypharmacy -Several potential sedating medications from home; Effexor, trazodone, clonazepam, gabapentin hydrocodone/APAP, meloxicam, and tizanidine at home -Gabapentin has been resumed at only 300 mg TID rather than 800 mg TID -Nightly trazodone has been reduced to 150 mg -Continue to reduce dosing, or eliminate medications as tolerated Impaired home maintenance management -Caregiver visited today -The patient still has paranoid thoughts -Living situation may not be ideal, plan for shelter for rehab -Progressive inability to care for herself -Discharge 05/31/19, pending SNF placement Dementia -Short term memory loss -Exacerbated by other psych illness of depression, anxiety, polypharmacy and paranoia -Continue to monitor
[2019-05-30] MEDS ORDERED: ONDANSETRON ODT 4 MG TABLET TL PRN (16:06)
[2019-05-30] MEDS ORDERED: traZODone 50 MG TABLET PO SCH (21:00)
[2019-05-31 05:42] LABS: BASOPHILS % (AUTO) 0.6 %; EOSINOPHILS # (AUTO) 0.2 10^3/uL (0.0-0.7); EOSINOPHILS % (AUTO) 3.8 %; HGB - HEMOGLOBIN 10.9 g/dL (12.0-16.0); LYMPHOCYTES # (AUTO) 1.8 10^3/uL (1.5-3.5); LYMPHOCYTES % (AUTO) 34.4 %; MEAN CORPUSCULAR HEMOGLOBIN 27.5 pg (27.0-31.0); MEAN CORPUSCULAR HGB CONC 31.4 g/dL (32.0-36.0); MEAN CORPUSCULAR VOLUME 87.6 fL (81.0-99.0); MEAN PLATELET VOLUME 9.8 fL (7.9-10.8); MONOCYTES # (AUTO) 0.3 10^3/uL (0.0-1.0); MONOCYTES % (AUTO) 6.5 %; NEUTROPHILS # (AUTO) 2.9 10^3/uL (1.5-6.6); NEUTROPHILS % (AUTO) 54.5 %; PLT - PLATELET COUNT 211 10^3/uL (130-450); RED BLOOD COUNT 3.96 10^6/uL (4.20-5.40); RED CELL DISTRIBUTION WIDTH 13.9 % (12.0-15.0); WHITE BLOOD COUNT 5.2 x10^3/uL (4.8-10.8)
[2019-05-31 05:51] LABS: ALBUMIN 3.3 g/dL (3.2-5.5); ALBUMIN/GLOBULIN RATIO 1.5 (1.0-2.2); BILIRUBIN,TOTAL 0.2 mg/dL (0.2-1.0); CALCIUM 9.1 mg/dL (8.5-10.3); CREATININE 0.6 mg/dL (0.4-1.0); MAGNESIUM 1.9 mg/dL (1.7-2.8); TOTAL PROTEIN 5.5 g/dL (6.7-8.2)
[2019-05-31] MEDS: GABAPENTIN 300 MG CAPSULE PO SCH ×2 (06:18→14:25)
--- NOTE | 2019-05-31 07:37 | Discharge Plan ---
Discharge Plan for SNF / [facility] - Discharge Plan And Transition Orders Problem Reviewed?: Yes Disposition: 03 SNF DC/Xfer Condition: Good Allergies and Adverse Reactions: Allergies Allergy/AdvReac Type Severity Reaction Status Date / Time Tetracyclines Allergy Intermediate Rash Verified 05/21/17 14:06 ciprofloxacin Allergy Nausea Verified 05/21/17 14:06 amoxicillin trihydrate * AdvReac Intermediate Nausea Verified 05/21/17 14:06 [From Augmentin] Penicillins AdvReac Nausea Verified 05/21/17 14:06 Health Concerns: Kidney infection Weakness Depression and anxiety Plan of Treatment: [facility]hab at [facility] Continue treatment for kidney infection Monitor for urinary retention Care Goals: Prevent hospital stays Avoid sedating medications or those that encourage urinary retention Complete rehabilitation at SNF Assessment: The patient was profoundly weak and admitted to "not being able to care for herself" at home upon arrival to the ED. She was treated with IV Rocephin, that was transitioned to PO Bactrim upon discharge to SNF for rehab. Physical therapy determined a recommendation for [facility] for rehab and the patient was medically stable. - SNF / [facility] Transition Orders Admit to (Facility): [facility] Under the care of (Name): Dr. Shoemaker Discharge Diagnosis: Pyelonephritis-new on this admission, continue treatment with Bactrim for a total of 10 days at SNF Weakness-Progressive, slightly improved since admission, recommended by PT for rehab Acute encephalopathy-Resolved Dehydration-Resolved Elevated troponin-Normalized Urinary retention-Chronic, improved since reducing home medications Asthma-Chronic, continue home inhalers COPD-Chronic, continue home inhalers IBS-Chronic, stable Depression with anxiety-Chronic, stable Chronic back pain-Chronic, stable Peptic ulcer disease-Chronic, stable Polypharmacy-Successfully reduced a select few home medications, efforts should be continued to reduce falls Impaired home maintenance management-Patient states that she had progressive weakness leading to her inability to care for herself and would be sitting in soiled pants for several hours Dementia-Chronic, stable Insomnia-Chronic, stable Hypertension-Chronic, stable, continues on lisinopril Fibromyalgia-Chronic, stable Lung mass-Chronic, stable Medicare Certification Statement: I certify that Post [facility] care is medically necessary on a continuing basis for any of the conditions for which she/he is receiving care during hospitalization. Notify PCP of admission and forward orders to primary provider for signature. Weight on admission and: Monthly House Bowel Program: Yes Annual Influenza Vaccine (between Jan 24 and August 23): Yes Lab Tests or X-ray Orders: Monthly labs or as per facility preferance Medication Orders: PLEASE REFER TO THE DISCHARGE MEDICATION LIST Insulin Orders?: No - Medications New Prescriptions: Acetaminophen [Tylenol] 650 mg PO Q4HR PRN #90 tablet PRN Reason: Pain 1 to 4 Albuterol Sulf [Ventolin Hfa Inhaler] 1 - 2 puffs INH Q4HR PRN #1 inhaler PRN Reason: Shortness Of Air/Wheezing Budesonide/Formoterol Fumarate [Symbicort 80-4.5 Mcg Inhaler] 10.2 gm IH BID #1 hfa.aer.ad clonazePAM [Clonazepam] 0.5 mg PO BID PRN #30 tablet PRN Reason: Anxiety Gabapentin [Neurontin] 300 mg PO TID #90 capsule Hydrocodone/Acetaminophen [Hydrocodone-Acetamin 10-325 mg] 1 tab PO TID PRN #20 tablet PRN Reason: Pain Sulfamethox/Trimeth 800/160 [Bactrim Ds] 1 tab PO BID #12 tablet Tamsulosin [Flomax] 0.4 mg PO DAILY #30 capsule - Diet Type: Geriatric Texture: Regular Liquids: Thin May have monthly special meal: Yes - Therapies | Activity Therapy: Evaluation | Treat if indicated: PT, OT Rehabilitation Potential: Return to independent living, Maintain present ADL Functional Activity: Activity as Tolerated Assistance Devices: Walker
--- NOTE | 2019-05-31 07:39 | DISCHARGE SUMMARY ---
Discharge Summary Admit Date: 05/27/19 Discharge Date: 05/31/19 Discharging Provider: OSEI Downs Primary Care Provider: Henry Esteves Code Status: Attempt Resuscitation Condition at Discharge: Good Discharge Disposition: [facility] DC/Xfer Discharge Facility Name: [facility] Age [age] Young - DIAGNOSES Admission Diagnoses: Altered mental state UTI (urinary tract infection) Asthma Depression Chronic back pain Discharge Diagnoses with Status of Each Condition: Pyelonephritis-new on this admission, continue treatment with Bactrim for a total of 10 days at [facility] Weakness-Progressive, slightly improved since admission, recommended by PT for rehab Acute encephalopathy-Resolved Dehydration-Resolved Elevated troponin-Normalized Urinary retention-Chronic, improved since reducing home medications Asthma-Chronic, continue home inhalers COPD-Chronic, continue home inhalers IBS-Chronic, stable Depression with anxiety-Chronic, stable Chronic back pain-Chronic, stable Peptic ulcer disease-Chronic, stable Polypharmacy-Successfully reduced a select few home medications, efforts should be continued to reduce falls Impaired home maintenance management-Patient states that she had progressive weakness leading to her inability to care for herself and would be sitting in soiled pants for several hours Dementia-Chronic, stable Insomnia-Chronic, stable Hypertension-Chronic, stable, continues on lisinopril Fibromyalgia-Chronic, stable Lung mass-Chronic, stable - HPI History of Present Illness: Kristi Malik is a 73-year-old woman with a past medical history significant f or hypertension, IBS, COPD, asthma, lung mass, PUD, osteoporosis, chronic back pain, insomnia, urinary retention, and depression who presented to the ER for altered mental status. It was reported that the patient was last seen normal by caregiver 2 days ago. The patient lives independently in [place]. Her caregiver reported that she found the patient lying in bed with her eyes open, soaked in soiled pants, and admits to the patient complaining of more frequent falls in the past week. When EMS arrived to her apartment, she was able to walk to her gurney and was previously lying in bed, not making eye contact. Upon arrival to the ED, the patient continued to have only one word answers with very soft voice. The admitting MD noted that the patient stated, "they were making fun of me". The patient became tearful when she was asked about depression and social history. There was no report of trauma or fall. On initial exam, the patient did not display any focal neuro deficits. A head CT was unremarkable for acute findings. A urinalysis shows possible infection with having +WBCs, many bacteria, although negative for nitrites. Labs show a low TSH with no other abnormalities. Vital signs were normal except for an initial blood pressure of 200/76. The patient was admitted for pyelonephritis and started on IV Rocephin given her bilateral flank pain and profound confusion. - HOSPITAL COURSE Hospital Course: The patient was profoundly weak and admitted to "not being able to care for herself" at home upon arrival to the ED. She was treated with IV Rocephin, that was transitioned to PO Bactrim upon discharge to SNF for rehab. Physical therapy determined a recommendation for care home for rehab and the patient was medically stable. - ALLERGIES Allergies/Adverse Reactions: Allergies Allergy/AdvReac Type Severity Reaction Status Date / Time Tetracyclines Allergy Intermediate Rash Verified 05/21/17 14:06 ciprofloxacin Allergy Nausea Verified 05/21/17 14:06 amoxicillin trihydrate * AdvReac Intermediate Nausea Verified 05/21/17 14:06 [From Augmentin] Penicillins AdvReac Nausea Verified 05/21/17 14:06 - MEDICATIONS Home Medications: Ambulatory Orders Medication Instructions Recorded Confirmed Cetirizine [ZyrTEC] 10 mg PO DAILY 05/27/19 05/27/19 lisinopriL [Lisinopril] 20 mg PO DAILY 05/27/19 05/27/19 Acetaminophen [Tylenol] 650 mg PO Q4HR PRN #90 tablet 05/31/19 Albuterol Sulf [Ventolin Hfa 1 - 2 puffs INH Q4HR PRN #1 inhaler 05/31/19 Inhaler] Budesonide/Formoterol Fumarate 10.2 gm IH BID #1 hfa.aer.ad 05/31/19 [Symbicort 80-4.5 Mcg Inhaler] Gabapentin [Neurontin] 300 mg PO TID #90 capsule 05/31/19 Hydrocodone/Acetaminophen 1 tab PO TID PRN #20 tablet 05/31/19 [Hydrocodone-Acetamin 10-325 mg] Lactulose 10 gm PO DAILY PRN #30 05/31/19 05/27/19 Meloxicam 15 mg PO DAILY #30 01/06/20 01/02/20 Multivitamin [Multivitamins] 1 each PO DAILY #30 05/31/19 05/27/19 Sulfamethox/Trimeth 800/160 1 tab PO BID #12 tablet 05/31/19 [Bactrim Ds] Tamsulosin [Flomax] 0.4 mg PO DAILY #30 capsule 05/31/19 Venlafaxine ER [Effexor ER] 225 mg PO DAILY #90 capsule 05/31/19 clonazePAM [Clonazepam] 0.5 mg PO BID PRN #30 tablet 05/31/19 tiZANidine [Zanaflex] 1 mg PO BID #30 tablet 05/31/19 traZODone [Desyrel] 150 mg PO QPM #90 tablet 05/31/19 - PHYSICAL EXAM AT DISCHARGE General Appearance: positive: Alert, Mild distress, Anxious Eyes Bilateral: positive: PERRL, No lid inflammation Neck: positive: Thyroid nml, No JVD, Trachea midline Respiratory: positive: Chest non-tender, No respiratory distress, Breath sounds nml Cardiovascular: positive: Regular rate & rhythm, No gallop, Systolic murmur (slight) Peripheral Pulses: positive: 2+ Abdomen: positive: Non-tender, Nml bowel sounds Back: positive: Nml inspection, CVA tenderness (R), CVA tenderness (L) Skin: positive: Color nml, No rash, Warm, Dry Extremities: positive: Non-tender, Full ROM, Nml appearance, No pedal edema, Joint swelling Neurologic/Psychiatric: positive: Oriented x3, CN's nml (2-12), Motor nml, Weakness, Depressed mood/affect, Other (delayed speech, slow responses) Reflexes: Bicep (R): 3+, Bicep (L): 3+ - LABS Result Diagrams: 05/31/19 05:05 05/31/19 05:05 - DIAGNOSTIC IMAGING Diagnostic Imaging Results: Final report reviewed Diagnostic Imaging Results Comments: EXAM: CT HEAD EXAM DATE: 05/27/2019 01:52 PM. IMPRESSION: Generalized age-related cortical atrophic changes without evidence of acute intracranial abnormality. EXAM: RENAL ULTRASOUND EXAM DATE: 05/29/2019 11:22 AM. IMPRESSION: 1. Prominent contour lobulation in the mid left kidney in a charac teristic location for a dromedary hump. However, this appears slightly more rounded and conspicuous than typically seen. Given the ambiguity, recommend contrast enhanced CT to exclude an underlying mass. 2. No stones or hydronephrosis. 3. Borges catheter noted in the bladder. This limits evaluation o f the bladder. - SEPSIS Current Stage of Sepsis: Ruled out - TIME SPENT Time Spent in Discharge (Minutes): 60
[2019-05-31] MEDS ORDERED: BUDESONIDE 0.5 MG/2 ML NEB INH SCH ×2 (08:30→19:00)
[2019-05-31] MEDS ORDERED: FORMOTEROL FUMARATE NEB 20 MCG/2 ML INH SCH ×2 (08:30→19:00)
[2019-05-31] MEDS: TAMSULOSIN 0.4 MG CAPSULE PO SCH (08:44)
[2019-05-31] MEDS: tiZANidine 4 MG TABLET PO SCH (08:44)
[2019-05-31] MEDS: VENLAFAXINE ER 75 MG CAPSULE PO SCH (08:44)
[2019-05-31] MEDS: polyethylene glycoL 3350 17 GM PACKET PO SCH (08:44)
[2019-05-31] MEDS: lisinopriL 20 MG TABLET PO SCH (08:44)
[2019-05-31] MEDS: FAMOTIDINE 20 MG TABLET PO SCH (08:44)
[2019-05-31] MEDS: ENOXAPARIN 40 MG/0.4 ML SYRINGE SUBQ SCH (08:44)
[2019-05-31] MEDS: CETIRIZINE 10 MG TABLET PO SCH (08:44)
[2019-05-31] MEDS ORDERED: SULFAMETH/TRIMETH DS 800/160 MG TABLET PO SCH (09:00)
[2019-05-31] MEDS: SODIUM CHLORIDE FLUSH 0.9% 10 ML SYRINGE IVP SCH (12:14)
[2019-05-31 16:16] VITALS: BP 138/86
== END 2019-05-31 16:10 | DRG 689 ==
LOC: EDUNIT# → ED 13:04 → MS2 16:31 → OBSVTOIN 05-28 10:42
PROVIDERS: ADMIT Nurse Practitioner Gerontology; ATTEND Nurse Practitioner
DX: N39.0 Urinary tract infection, site not specified (principal); R41.0 Disorientation, unspecified; N12 Tubulo-interstitial nephritis, not specified as acute or chronic; E78.00 Pure hypercholesterolemia, unspecified; F31.9 Bipolar disorder, unspecified; F41.0 Panic disorder [episodic paroxysmal anxiety]; F43.10 Post-traumatic stress disorder, unspecified; G93.41 Metabolic encephalopathy; I10 Essential (primary) hypertension; J44.9 Chronic obstructive pulmonary disease, unspecified; G89.29 Other chronic pain; M54.5 Low back pain; M79.7 Fibromyalgia; M19.90 Unspecified osteoarthritis, unspecified site; M81.0 Age-related osteoporosis without current pathological fracture; R53.1 Weakness; E86.0 Dehydration; R33.9 Retention of urine, unspecified; R32 Unspecified urinary incontinence; R79.89 Other specified abnormal findings of blood chemistry; K58.9 Irritable bowel syndrome, unspecified; F41.8 Other specified anxiety disorders; K27.7 Chronic peptic ulcer, site unspecified, without hemorrhage or perforation; F03.90 Unspecified dementia, unspecified severity, without behavioral disturbance, psychotic disturbance, mood disturbance, and anxiety; G47.00 Insomnia, unspecified; R93.422 Abnormal radiologic findings on diagnostic imaging of left kidney; R91.8 Other nonspecific abnormal finding of lung field; Z74.2 Need for assistance at home and no other household member able to render care; Z79.891 Long term (current) use of opiate analgesic; Z87.11 Personal history of peptic ulcer disease; Z91.81 History of falling
CPT/HCPCS: 36415; 70450; 76770; 80048; 80053; 81001; 82550; 83605; 83690; 83735; 84439; 84443; 84484; 85025; 85610; 87040; 87086; 93005; 94640; 96365; 96372; 96375; 97161; 97530; 99285; A9270; G0378; J1650; J7626; 80306; 80307; 80320; 80329; 81003

== ENCOUNTER 2019-06-23 17:30 | Outpatient (CLI) | payer MEDICARE, MEDICAID ==
[2019-06-23 22:53] LABS: BASOPHILS % (AUTO) 0.3 %; EOSINOPHILS # (AUTO) 0.1 10^3/uL (0.0-0.7); EOSINOPHILS % (AUTO) 1.8 %; HGB - HEMOGLOBIN 11.1 g/dL (12.0-16.0); LYMPHOCYTES % (AUTO) 32.8 %; MEAN CORPUSCULAR HEMOGLOBIN 27.5 pg (27.0-31.0); MEAN CORPUSCULAR HGB CONC 30.9 g/dL (32.0-36.0); MEAN CORPUSCULAR VOLUME 89.1 fL (81.0-99.0); MEAN PLATELET VOLUME 11.5 fL (7.9-10.8); MONOCYTES # (AUTO) 0.4 10^3/uL (0.0-1.0); NEUTROPHILS # (AUTO) 3.7 10^3/uL (1.5-6.6); NEUTROPHILS % (AUTO) 58.9 %; PLT - PLATELET COUNT 192 10^3/uL (130-450); RED BLOOD COUNT 4.03 10^6/uL (4.20-5.40); RED CELL DISTRIBUTION WIDTH 14.2 % (12.0-15.0); WHITE BLOOD COUNT 6.2 x10^3/uL (4.8-10.8)
[2019-06-23 23:04] LABS: ALBUMIN 4.3 g/dL (3.2-5.5); ALBUMIN/GLOBULIN RATIO 1.7 (1.0-2.2); BILIRUBIN,TOTAL 0.8 mg/dL (0.2-1.0); CALCIUM 9.6 mg/dL (8.5-10.3); CREATININE 0.9 mg/dL (0.4-1.0); TOTAL PROTEIN 6.8 g/dL (6.7-8.2)
== END 2019-06-23 23:59 | disposition home or self-care (01) ==
LOC: LAB.R 17:30
DX: E86.0 Dehydration (principal); N10 Acute pyelonephritis; R53.1 Weakness; K27.4 Chronic or unspecified peptic ulcer, site unspecified, with hemorrhage
CPT/HCPCS: 80053; 85025

== ENCOUNTER 2019-06-24 10:00 | Outpatient (CLI) | payer MEDICARE, MEDICAID ==
[2019-06-24 18:54] LABS: BILIRUBIN,URINE NEGATIVE (NEGATIVE); GLUCOSE, URINE (UA) NEGATIVE (NEGATIVE); KETONES,URINE (UA) 15 mg/dL (NEGATIVE); LEUKOCYTE ESTERASE, URINE TRACE (NEGATIVE); NITRITE,URINE NEGATIVE (NEGATIVE); OCCULT BLOOD,URINE NEGATIVE (NEGATIVE); PH,URINE 5.5 PH (5.0-7.5); PROTEIN,URINE NEGATIVE (NEGATIVE); UROBILINOGEN,URINE 0.2 (NORMAL) E.U./dL (NORMAL)
[2019-06-24 18:59] LABS: CLARITY,URINE CLOUDY (CLEAR)
[2019-06-24 19:45] LABS: AMORPHOUS SEDIMENT,UR Moderate /LPF; BACTERIA,URINE Few /HPF (None Seen); RBC,URINE 0-5 /HPF (0-5); SQUAMOUS EPITHELIAL CELL,UR FEW Squamous (<= Few)
== END 2019-06-24 23:59 | disposition home or self-care (01) ==
LOC: LAB.R 10:00
DX: N39.0 Urinary tract infection, site not specified (principal)
CPT/HCPCS: 81001; 81003; 87086

== ENCOUNTER 2019-07-07 05:00 | Outpatient (CLI) | payer MEDICARE, MEDICAID ==
[2019-07-07 06:47] LABS: BASOPHILS % (AUTO) 0.4 %; EOSINOPHILS # (AUTO) 0.1 10^3/uL (0.0-0.7); EOSINOPHILS % (AUTO) 2.8 %; HGB - HEMOGLOBIN 10.1 g/dL (12.0-16.0); LYMPHOCYTES # (AUTO) 2.3 10^3/uL (1.5-3.5); LYMPHOCYTES % (AUTO) 50.8 %; MEAN CORPUSCULAR HGB CONC 31.9 g/dL (32.0-36.0); MEAN CORPUSCULAR VOLUME 87.8 fL (81.0-99.0); MEAN PLATELET VOLUME 10.7 fL (7.9-10.8); MONOCYTES # (AUTO) 0.3 10^3/uL (0.0-1.0); MONOCYTES % (AUTO) 6.5 %; NEUTROPHILS # (AUTO) 1.8 10^3/uL (1.5-6.6); NEUTROPHILS % (AUTO) 39.3 %; PLT - PLATELET COUNT 179 10^3/uL (130-450); RED BLOOD COUNT 3.61 10^6/uL (4.20-5.40); RED CELL DISTRIBUTION WIDTH 14.1 % (12.0-15.0); WHITE BLOOD COUNT 4.6 x10^3/uL (4.8-10.8)
[2019-07-07 06:57] LABS: ALBUMIN 2.9 g/dL (3.2-5.5); ALBUMIN/GLOBULIN RATIO 1.2 (1.0-2.2); BILIRUBIN,TOTAL 0.5 mg/dL (0.2-1.0); CALCIUM 8.9 mg/dL (8.5-10.3); CREATININE 0.8 mg/dL (0.4-1.0); TOTAL PROTEIN 5.4 g/dL (6.7-8.2)
== END 2019-07-07 23:59 | disposition home or self-care (01) ==
LOC: LAB.R 05:00
DX: E86.0 Dehydration (principal); M79.7 Fibromyalgia; N10 Acute pyelonephritis
CPT/HCPCS: 80053; 85025

== ENCOUNTER 2019-07-07 09:55 | Outpatient (CLI) | payer MEDICARE, MEDICAID ==
[2019-07-07 10:34] LABS: BILIRUBIN,URINE NEGATIVE (NEGATIVE); GLUCOSE, URINE (UA) NEGATIVE (NEGATIVE); KETONES,URINE (UA) NEGATIVE (NEGATIVE); LEUKOCYTE ESTERASE, URINE TRACE (NEGATIVE); NITRITE,URINE NEGATIVE (NEGATIVE); OCCULT BLOOD,URINE NEGATIVE (NEGATIVE); PH,URINE 5.5 PH (5.0-7.5); PROTEIN,URINE NEGATIVE (NEGATIVE); UROBILINOGEN,URINE 0.2 (NORMAL) E.U./dL (NORMAL)
[2019-07-07 10:51] LABS: CLARITY,URINE HAZY (CLEAR)
[2019-07-07 11:00] LABS: BACTERIA,URINE Many /HPF (None Seen); CASTS, URINE 6-10 Hyaline Casts /LPF; CRYSTALS,URINE >50 Calcium Oxalate /LPF; MUCUS,URINE Marked Strands; RBC,URINE 0-5 /HPF (0-5); SQUAMOUS EPITHELIAL CELL,UR MOD Squamous (<= Few)
== END 2019-07-07 23:59 | disposition home or self-care (01) ==
LOC: LAB.R 09:55
DX: N10 Acute pyelonephritis (principal); R33.9 Retention of urine, unspecified; N39.0 Urinary tract infection, site not specified
CPT/HCPCS: 81001; 81003; 87086

== ENCOUNTER 2019-10-07 05:40 | Outpatient (CLI) | payer MEDICARE, MEDICAID ==
[2019-10-07 07:02] LABS: BASOPHILS % (AUTO) 0.5 %; EOSINOPHILS # (AUTO) 0.3 10^3/uL (0.0-0.7); EOSINOPHILS % (AUTO) 6.6 %; HGB - HEMOGLOBIN 9.8 g/dL (12.0-16.0); LYMPHOCYTES # (AUTO) 1.5 10^3/uL (1.5-3.5); LYMPHOCYTES % (AUTO) 35.7 %; MEAN CORPUSCULAR HGB CONC 31.6 g/dL (32.0-36.0); MEAN CORPUSCULAR VOLUME 91.7 fL (81.0-99.0); MEAN PLATELET VOLUME 9.9 fL (7.9-10.8); MONOCYTES # (AUTO) 0.5 10^3/uL (0.0-1.0); MONOCYTES % (AUTO) 12.7 %; NEUTROPHILS # (AUTO) 1.8 10^3/uL (1.5-6.6); NEUTROPHILS % (AUTO) 44.3 %; PLT - PLATELET COUNT 200 10^3/uL (130-450); RED BLOOD COUNT 3.38 10^6/uL (4.20-5.40); RED CELL DISTRIBUTION WIDTH 15.9 % (12.0-15.0); WHITE BLOOD COUNT 4.1 x10^3/uL (4.8-10.8)
[2019-10-07 07:13] LABS: ALBUMIN 2.8 g/dL (3.2-5.5); ALBUMIN/GLOBULIN RATIO 1.1 (1.0-2.2); BILIRUBIN,TOTAL 0.6 mg/dL (0.2-1.0); CALCIUM 8.9 mg/dL (8.5-10.3); CREATININE 0.7 mg/dL (0.4-1.0); TOTAL PROTEIN 5.3 g/dL (6.7-8.2)
== END 2019-10-07 23:59 | disposition home or self-care (01) ==
LOC: LAB.R 05:40
DX: U07.1 COVID-19 (principal); F33.2 Major depressive disorder, recurrent severe without psychotic features
CPT/HCPCS: 80053; 85025

== ENCOUNTER 2019-10-27 08:00 | Outpatient (CLI) | payer MEDICARE, MEDICAID ==
[2019-10-27 18:32] LABS: BASOPHILS % (AUTO) 0.4 %; EOSINOPHILS # (AUTO) 0.2 10^3/uL (0.0-0.7); EOSINOPHILS % (AUTO) 3.2 %; HGB - HEMOGLOBIN 10.6 g/dL (12.0-16.0); LYMPHOCYTES # (AUTO) 1.4 10^3/uL (1.5-3.5); MEAN CORPUSCULAR HEMOGLOBIN 28.7 pg (27.0-31.0); MEAN CORPUSCULAR HGB CONC 31.2 g/dL (32.0-36.0); MEAN CORPUSCULAR VOLUME 92.1 fL (81.0-99.0); MEAN PLATELET VOLUME 9.8 fL (7.9-10.8); MONOCYTES # (AUTO) 0.5 10^3/uL (0.0-1.0); MONOCYTES % (AUTO) 9.7 %; NEUTROPHILS # (AUTO) 2.7 10^3/uL (1.5-6.6); NEUTROPHILS % (AUTO) 57.5 %; PLT - PLATELET COUNT 206 10^3/uL (130-450); RED BLOOD COUNT 3.69 10^6/uL (4.20-5.40); WHITE BLOOD COUNT 4.7 x10^3/uL (4.8-10.8)
[2019-10-27 18:34] LABS: CREATININE 0.5 mg/dL (0.4-1.0)
== END 2019-10-27 23:59 | disposition home or self-care (01) ==
LOC: LAB.WCP 08:00
PROVIDERS: ATTEND Family Medicine
DX: R06.09 Other forms of dyspnea (principal)
CPT/HCPCS: 36415; 80048; 83880; 85025

== ENCOUNTER 2019-10-27 11:42 | Outpatient (CLI) | payer MEDICARE, MEDICAID ==
--- NOTE | 2019-10-27 12:47 | XRAY Report ---
Reason: DYSPNEA ON EXERTION Procedure Date: 10/27/2019 Accession Number: [id number] / [id number] Procedure: [facility] - Chest 2 View X-Ray CPT Code: 01505 Final Report FULL RESULT: PROCEDURE: Chest 2 View X-Ray INDICATIONS: DYSPNEA ON EXERTION TECHNIQUE: PA and lateral views of the chest COMPARISON: 11/29/2015 and the 11/26/2015. FINDINGS: Cardiomediastinal contours are stable. No pneumothorax. No focal consolidation. No substantial pleural effusion. Stable appearance of hyperaeration and flattening of the hemidiaphragms. Mild interstitial prominence. Diffuse osteopenia. Healed rib fracture deformities of the left chest. Stable appearance of prior vertebroplasty of the lower thoracic spine. IMPRESSION: 1. Stable examination of the chest without acute cardiopulmonary abnormalities. 2. Stable changes of chronic obstructive pulmonary physiology/COPD 3. Diffuse osteopenia. Reviewed by: Kevin Stubbs MD on 10/27/2019 12:46 PM PDT Approved by: Kevin Stubbs MD on 10/27/2019 12:46 PM PDT Station ID: [id number]
== END 2019-10-27 23:59 | disposition home or self-care (01) ==
LOC: DI.WCP 11:42
PROVIDERS: ATTEND Family Medicine
DX: J44.9 Chronic obstructive pulmonary disease, unspecified (principal); R06.09 Other forms of dyspnea
CPT/HCPCS: 36415; 71046; 80048; 83880; 85025

== ENCOUNTER 2020-01-05 12:11 | Outpatient (CLI) | payer MEDICARE, MEDICAID ==
[2020-01-05 19:48] LABS: CHOLESTEROL 172 mg/dL; HDL CHOLESTEROL 87 mg/dL; LDL CHOLESTEROL,CALCULATED 71 mg/dL; LDL/HDL RATIO 0.8 (<4.4); VLDL CHOLESTEROL 14 mg/dL
== END 2020-01-05 23:59 | disposition home or self-care (01) ==
LOC: LAB.WCP 12:11
PROVIDERS: ATTEND Family Medicine
DX: E78.5 Hyperlipidemia, unspecified (principal); R06.09 Other forms of dyspnea; R60.0 Localized edema; R35.0 Frequency of micturition
CPT/HCPCS: 36415; 80061; 83721; 83880; 87086

== ENCOUNTER 2020-01-11 07:00 | Outpatient (CLI) | payer MEDICARE, MEDICAID | END 2020-01-11 23:59 | disposition home or self-care (01) | LOC: LAB.R 07:00 | PROVIDERS: ATTEND Nurse Practitioner Family | DX: R35.0 Frequency of micturition (principal) | CPT/HCPCS: 87086 ==

== ENCOUNTER 2020-02-17 10:43 | Outpatient (CLI) | payer MEDICARE, MEDICAID ==
--- NOTE | 2020-02-17 14:36 | DEXA Report ---
PROCEDURE: Dexa Spine and/or Hip INDICATIONS: OSTEOPOROSIS TECHNIQUE: Dual energy x-ray absorptiometry (DXA) was performed on a [employer]. Regions measur ed are the AP Spine, femoral neck, and if needed forearm. COMPARISON: None. FINDINGS: Lumbar Spine: Bone Mineral Density 0.796 g/cm/cm,T score -3.2, osteoporosis Left Hip: Bone Mineral Density 0.459 g/cm/cm,T score -4.4, osteoporosis Left Femoral Neck: Bone Mineral Density 0.470 g/cm/cm, T score -4.1, osteoporosis (T score greater or equal to -1.0: NORMAL) (T score from -1.1 to -2.4: OSTEOPENIA) (T score less than or equal to -2.5 to: OSTEOPOROSIS) Impression: Osteoporosis of the lumbar spine and left hip resulting in a high-risk of fracture for th is patient. Direct comparisons cannot be made to the patient's prior study secondary to changes in technique. The patient has previously received a diagnosis of osteoporosis. Patients with diagnosis of osteoporosis or osteopenia should have regular bone mineral density assess ment. For those eligible for Medicare, routine testing is allowed once every 2 years. Testing frequ ency can be increased for patients who have rapidly progressing disease or for those who are receivin g medical therapy to restore bone mass. Reviewed by: Jossie Quintanilla MD on 02/17/2020 1:34 PM THERESE Approved by: Jossie Quintanilla MD on 02/17/2020 1:34 PM THERESE Station ID: [id number]
== END 2020-02-17 10:44 | disposition home or self-care (01) ==
LOC: DI 10:43
PROVIDERS: ATTEND Family Medicine
DX: M81.0 Age-related osteoporosis without current pathological fracture (principal)
CPT/HCPCS: 77080

== ENCOUNTER 2020-03-10 12:28 | Outpatient (CLI) | payer MEDICARE, MEDICAID ==
--- NOTE | 2020-03-10 14:22 | XRAY Report ---
PROCEDURE: Wrist 2 View RT INDICATIONS: PAIN IN RIGHT WRIST TECHNIQUE: 2 views of the wrist were acquired. COMPARISON: None FINDINGS: Bones: No acute fracture. Chronic appearing ulnar styloid fracture. Diffuse carpal and distal radiou lnar joint degeneration. Soft tissues: No suspicious soft tissue calcifications. IMPRESSION: Chronic and degenerative changes as above Reviewed by: Joel Maravilla MD on 03/10/2020 2:20 PM PDT Approved by: Joel Maravilla MD on 03/10/2020 2:20 PM PDT Station ID: [id number]
== END 2020-03-10 12:29 | disposition home or self-care (01) ==
LOC: DI 12:28
PROVIDERS: ATTEND Family Medicine
DX: M19.031 Primary osteoarthritis, right wrist (principal)

== ENCOUNTER 2020-05-12 08:00 | Outpatient (CLI) | payer MEDICARE, MEDICAID ==
[2020-05-12 18:16] LABS: BASOPHILS % (AUTO) 0.4 %; EOSINOPHILS # (AUTO) 0.1 10^3/uL (0.0-0.7); EOSINOPHILS % (AUTO) 1.1 %; HGB - HEMOGLOBIN 11.6 g/dL (12.0-16.0); LYMPHOCYTES # (AUTO) 1.5 10^3/uL (1.5-3.5); LYMPHOCYTES % (AUTO) 31.2 %; MEAN CORPUSCULAR HEMOGLOBIN 29.1 pg (27.0-31.0); MEAN PLATELET VOLUME 11.3 fL (7.9-10.8); MONOCYTES # (AUTO) 0.3 10^3/uL (0.0-1.0); NEUTROPHILS # (AUTO) 2.9 10^3/uL (1.5-6.6); NEUTROPHILS % (AUTO) 61.1 %; PLT - PLATELET COUNT 170 10^3/uL (130-450); RED BLOOD COUNT 3.98 10^6/uL (4.20-5.40); RED CELL DISTRIBUTION WIDTH 14.6 % (12.0-15.0); WHITE BLOOD COUNT 4.7 x10^3/uL (4.8-10.8)
[2020-05-12 18:44] LABS: ALBUMIN 4.1 g/dL (3.2-5.5); ALBUMIN/GLOBULIN RATIO 1.4 (1.0-2.2); ALKALINE PHOSPHATASE 54 IU/L (42-121); ALT ALANINE AMINOTRANSFERASE 22 IU/L (10-60); AST ASPARTATE AMINOTRANSFERASE 17 IU/L (10-42); BILIRUBIN,TOTAL 0.6 mg/dL (0.2-1.0); BUN - BLOOD UREA NITROGEN 24 mg/dL (6-20); CALCIUM 9.7 mg/dL (8.5-10.3); CARBON DIOXIDE - CO2 26 mmol/L (21-32); CHLORIDE 102 mmol/L (101-111); CHOL/HDL RATIO 1.9 (<4.4); CHOLESTEROL 180 mg/dL; CREATININE 0.6 mg/dL (0.4-1.0); GLUCOSE 83 mg/dL (70-100); HDL CHOLESTEROL 94 mg/dL; LDL CHOLESTEROL,CALCULATED 78 mg/dL; LDL/HDL RATIO 0.8 (<4.4); SODIUM 137 mmol/L (135-145); VLDL CHOLESTEROL 8 mg/dL
== END 2020-05-12 08:01 | disposition home or self-care (01) ==
LOC: LAB.WCP 08:00
PROVIDERS: ATTEND Internal Medicine
DX: I10 Essential (primary) hypertension (principal); E78.5 Hyperlipidemia, unspecified; R60.0 Localized edema; F32.9 Major depressive disorder, single episode, unspecified; M79.7 Fibromyalgia; R91.8 Other nonspecific abnormal finding of lung field
CPT/HCPCS: 36415; 80053; 80061; 83721; 83880; 84443; 85025

== ENCOUNTER 2020-10-11 | Outpatient (CLI) | payer MEDICARE, MEDICAID | END 2020-10-11 18:43 | disposition short-term general hospital (02) | CPT/HCPCS: A0425; A0426 ==

== ENCOUNTER 2020-10-11 11:48 | Emergency (ER) | payer MEDICARE, MEDICAID ==
[2020-10-11] MEDS ORDERED: ONDANSETRON 4 MG/2 ML VIAL IVP STA (12:01)
[2020-10-11] MEDS ORDERED: HYDROmorphone 1 MG/ML CARPUJECT IVP STA (12:01)
--- NOTE | 2020-10-11 12:10 | ED Physician Documentation ---
History of Present Illness - Stated complaint Stated Complaint: STOMACH PX - Chief complaint Chief Complaint: Abd Pain - Additonal information Additional information: 75-year-old female presents the emergency department for evaluation of acute onset right-sided abdominal pain that she reports woke her from sleep about 3 this morning. She states that she had similar pain that was short-lived few weeks ago for which she did not seek treatment. At this time that she denies fevers vomiting diarrhea dysuria urgency or frequency. However she does state that she has never hurt like this before.Denies any pertinent psh. Denies changes in bowel movements. Past medical history is somewhat unclear to me at this time. She reports a history of depression and asthma but in her list of medications also states that she is taking Xarelto for an unknown reason after a prolonged hospitalization last year. I will ask nursing staff to clarify medications with the pharmacy. 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 She has been on this now for about 14 months. It did seem that her primary care physician Dr. Gage was going to inquire as to whether she needed to remain on Xarelto at her next visit Review of Systems Constitutional: denies: Fever, Chills Eyes: reports: Reviewed and negative Ears: reports: Reviewed and negative Throat: reports: Reviewed and negative Cardiac: reports: Reviewed and negative Respiratory: reports: Reviewed and negative GI: reports: Abdominal Pain. denies: Nausea, Vomiting, Diarrhea, Hematemesis, Bloody / black stool : denies: Dysuria, Frequency, Hesitancy, Unable to Void Skin: denies: Rash, Lesions Musculoskeletal: denies: Neck pain, Back pain Neurologic: denies: Generalized weakness, Focal weakness, Numbness PD PAST MEDICAL HISTORY - Past Medical History Cardiovascular: High cholesterol Respiratory: Asthma Endocrine/Autoimmune: None GI: Ulcers : Other HEENT: None Psych: Depression, Bipolar disorder, Panic attacks, Post traumatic stress disorder Musculoskeletal: Osteoporosis, Chronic back pain Derm: None - Past Surgical History Past Surgical History: Yes General: Colonoscopy Ortho: Other HEENT: Tonsil/Adenoidectomy - Present Medications Home Medications: Ambulatory Orders Medication Instructions Recorded Confirmed Cetirizine [ZyrTEC] 10 mg PO DAILY 05/27/19 05/27/19 lisinopriL [Lisinopril] 20 mg PO DAILY 05/27/19 05/27/19 Acetaminophen [Tylenol] 650 mg PO Q4HR PRN #90 tablet 05/31/19 Albuterol Sulf [Ventolin Hfa 1 - 2 puffs INH Q4HR PRN #1 inhaler 05/31/19 Inhaler] Budesonide/Formoterol Fumarate 10.2 gm IH BID #1 hfa.aer.ad 05/31/19 [Symbicort 80-4.5 Mcg Inhaler] Gabapentin [Neurontin] 300 mg PO TID #90 capsule 05/31/19 Hydrocodone/Acetaminophen 1 tab PO TID PRN #20 tablet 05/31/19 [Hydrocodone-Acetamin 10-325 mg] Lactulose 10 gm PO DAILY PRN #30 05/31/19 05/27/19 Meloxicam 15 mg PO DAILY #30 05/31/19 05/27/19 Multivitamin [Multivitamins] 1 each PO DAILY #30 05/31/19 05/27/19 Sulfamethox/Trimeth 800/160 1 tab PO BID #12 tablet 05/31/19 [Bactrim Ds] Tamsulosin [Flomax] 0.4 mg PO DAILY #30 capsule 05/31/19 Venlafaxine ER [Effexor ER] 225 mg PO DAILY #90 capsule 05/31/19 clonazePAM [Clonazepam] 0.5 mg PO BID PRN #30 tablet 05/31/19 tiZANidine [Zanaflex] 1 mg PO BID #30 tablet 05/31/19 traZODone [Desyrel] 150 mg PO QPM #90 tablet 05/31/19 - Allergies Allergies/Adverse Reactions: Allergies Allergy/AdvReac Type Severity Reaction Status Date / Time Tetracyclines Allergy Intermediate Rash Verified 10/11/20 11:56 ciprofloxacin Allergy Nausea Verified 10/11/20 11:56 amoxicillin trihydrate * AdvReac Intermediate Nausea Verified 10/11/20 11:56 [From Augmentin] Penicillins AdvReac Nausea Verified 10/11/20 11:56 - Social History Does the pt smoke?: No Smoking Status: Never smoker Does the pt drink ETOH?: No Does the pt have substance abuse?: No - POLST Patient has POLST: No PD ED PE EXPANDED - General General: Alert, In Pain - Cardiac Cardiac: Regular Rate, Radial strong equal, Pedal strong equal, Cap refill < 2 sec. No: Murmur Present - Respiratory Respiratory: Clear to ausultation bart. No: Distress, Labored - Abdomen Abdomen: Normal Bowel sounds, Tender to palpation, RUQ (Focal tenderness right upper quadrant with positive guarding and rebound. Negative McBurney's) - Derm Derm: Normal color, Warm and dry. No: Rash - Extremities Extremities: Normal. No: Deformity, Tenderness - Neuro Neuro: Alert and Oriented X 3, CNII-XII intact - GCS Eye Opening: Spontaneous Motor: Obeys Commands Verbal: Oriented Total: 15 Results - Vitals Vitals: Vital Signs - 24 hr 10/11/20 10/11/20 10/11/20 11:57 14:04 16:00 Temperature 36.4 C L Heart Rate 82 85 76 Respiratory 19 15 16 Rate Blood Pressure 186/74 H 154/90 H 155/77 H O2 Saturation 95 97 98 10/11/20 18:00 Temperature Heart Rate 74 Respiratory 20 Rate Blood Pressure 165/92 H O2 Saturation 96 Oxygen O2 Source [] Room air O2 Source Room air - EKG (time done) 1222 Rate: Rate (enter#) (61) Rhythm: NSR Harris: Normal Intervals: Normal [place] QRS: Normal Ischemia: Normal ST segments Compare to prior EKG: Unchanged from prior EKG Computer interpretation: Agree with computer - Labs Labs: Laboratory Tests 10/11/20 10/11/20 10/11/20 12:10 12:10 14:06 WBC 3.7 L RBC 4.45 Hgb 13.1 Hct 39.9 MCV 89.7 MCH 29.4 MCHC 32.8 RDW 14.1 Plt Count 144 MPV 10.0 Neut # (Auto) 2.8 Lymph # (Auto) 0.6 L [place] # (Auto) 0.4 Eos # (Auto) 0.0 Baso # (Auto) 0.0 Absolute Nucleated RBC 0.00 Nucleated RBC % 0.0 Sodium 134 L Potassium 4.4 Chloride 97 L Carbon Dioxide 27 Anion Gap 10.0 BUN 21 H Creatinine 0.7 Estimated GFR (MDRD) 81 L Glucose 117 H Calcium 10.4 H Total Bilirubin 2.1 H AST 1792 H ALT 1326 H Alkaline Phosphatase 106 Total Protein 7.6 Albumin 4.2 Globulin 3.4 Albumin/Globulin Ratio 1.2 Lipase 41 Urine Color YELLOW Urine Clarity CLEAR Urine pH 7.5 Ur Specific [place] 1.015 Urine Protein NEGATIVE Urine Glucose (UA) NEGATIVE Urine Ketones NEGATIVE Urine Occult Blood SMALL H Urine Nitrite NEGATIVE Urine Bilirubin NEGATIVE Urine Urobilinogen 1 (NORMAL) Ur Leukocyte Esterase NEGATIVE Urine RBC 6-10 H Urine WBC 0-3 Ur Squamous Epith Cells RARE Squamous Urine Bacteria Rare Ur Microscopic Review INDICATED Urine Culture Comments NOT INDICATED - Rads (name of study) CT abd Radiology: Final report received (Biliary and pancreatic duct dual dilation suggestive of obstructing calculus versus neoplasm. Gallbladder dilation wall thickening suggestive of cholecystitis. Small right and left trace pleural effusions. Uterine fibroids. Severe L2 compression fx) abd US Radiology: See rad report, Other (Choledocholithiasis. Intra and extrahepatic ductal dilation. CBD dilation as well as pancreatic duct dilation exam consistent with cholecystitis) PD MEDICAL DECISION MAKING - ED course Complexity details: reviewed results, re-evaluated patient, d/w patient ED course: 75-year-old female presents the emergency department for evaluation of cute onset pain. Unfortunately labs do reveal a significant transaminase. CT of the abdomen does show cholecystitis with suspicion for obstructing stone. Abdominal ultrasound did show choledocholithiasis. 1725: I have spoken with [facility] GI specialist Dr. Rosenbaum Who is graciously agreed to accept this patient in transfer. Patient will be sent via ALS. Appropriate COBRA paperwork completed. Patient remains n.p.o. No anticoagulant will be administered I have spoken with Dr. Daniel general surgeon at [facility] who aslo acepts pt in transfer to [facility]. Ceftriaxone and Flagyl (multiple medication allergies) have been ordered empirically for suspected Cholecystitis though the patient has no leukocytosis or fevers. Departure - Departure Disposition: 02 Transfer Acute Care Hosp Clinical Impression: Choledocholithiasis, Elevated LFTs, Cholecystitis, Anticoagulated
[2020-10-11 12:15] LABS: BASOPHILS % (AUTO) 0.3 %; HCT - HEMATOCRIT 39.9 % (37.0-47.0); HGB - HEMOGLOBIN 13.1 g/dL (12.0-16.0); LYMPHOCYTES # (AUTO) 0.6 10^3/uL (1.5-3.5); LYMPHOCYTES % (AUTO) 14.9 %; MEAN CORPUSCULAR HEMOGLOBIN 29.4 pg (27.0-31.0); MEAN CORPUSCULAR HGB CONC 32.8 g/dL (32.0-36.0); MEAN CORPUSCULAR VOLUME 89.7 fL (81.0-99.0); MONOCYTES # (AUTO) 0.4 10^3/uL (0.0-1.0); MONOCYTES % (AUTO) 9.5 %; NEUTROPHILS # (AUTO) 2.8 10^3/uL (1.5-6.6); PLT - PLATELET COUNT 144 10^3/uL (130-450); RED BLOOD COUNT 4.45 10^6/uL (4.20-5.40); RED CELL DISTRIBUTION WIDTH 14.1 % (12.0-15.0); WHITE BLOOD COUNT 3.7 x10^3/uL (4.8-10.8)
[2020-10-11 12:34] LABS: ALBUMIN 4.2 g/dL (3.2-5.5); ALBUMIN/GLOBULIN RATIO 1.2 (1.0-2.2); BILIRUBIN,TOTAL 2.1 mg/dL (0.2-1.0); CALCIUM 10.4 mg/dL (8.5-10.3); CREATININE 0.7 mg/dL (0.4-1.0); POTASSIUM 4.4 mmol/L (3.5-5.0); TOTAL PROTEIN 7.6 g/dL (6.7-8.2)
[2020-10-11] MEDS ORDERED: SODIUM CHLORIDE 0.9% 1,000 ML IV STA (12:35)
[2020-10-11] MEDS ORDERED: IOVERSOL 320 100 ML VIAL IVP ONE ×2 (13:08→14:34)
--- NOTE | 2020-10-11 13:43 | CT Report ---
PROCEDURE: Abdomen/Pelvis W INDICATIONS: acute right sided abdomianl pain CONTRAST: IV CONTRAST: Isovue 300 ml: 100 PO CONTRAST: *NO PO CONTRAST TECHNIQUE: After the administration of IV contrast, 5 mm thick sections acquired from the diaphragms to the symp hysis. 5 mm thick coronal and sagittal reformats were acquired. For radiation dose reduction, the f ollowing was used: automated exposure control, adjustment of mA and/or kV according to patient size. COMPARISON: None. FINDINGS: Image quality: Excellent. ABDOMEN: Lung bases: Small right and trace left pleural effusions are present. Lung bases are otherwise clear. Heart size is normal. Solid organs: Liver and spleen are normal in size and enhancement. Gallbladder wall is thickened, m easuring 4 mm at the fundus. Mild gallbladder distention is present. There is mild intrahepatic bilia ry ductal dilatation. Moderate extrahepatic biliary ductal dilatation is present. Abrupt tapering of the distal common bile duct is present. Pancreas enhances normally. Mild dilatation of the pancreatic duct, which measures 4 mm diameter within the neck. No adrenal nodules. Kidneys demonstrate normal size and enhancement, without hydronephrosis. Peritoneum and bowel: Bowel loops demonstrate normal wall thickness and caliber. No free fluid or a ir. Nodes and vessels: No retroperitoneal or mesenteric adenopathy by size criteria. Aorta and inferior vena cava are normal in size. Miscellaneous: No ventral hernias. PELVIS: Genitourinary: Bladder wall thickness is normal. Multiple calcified masses within the uterus are pr esent. Miscellaneous: No inguinal hernias or adenopathy. Bones: No suspicious bony lesions. Severe chronic L2 compression fracture associated with retropuls ion and moderate to severe canal stenosis. Moderate chronic T11 compression fracture which enters bon y cement injection. No acute vertebral body compression fractures. IMPRESSION: 1. Biliary and pancreatic ductal dilatation, suggestive of an obstructing calculus versus neoplasm. M PINION [employer] WHEEL [employer]UER is recommended for further assessment. 2. Gallbladder dilatation and wall thickening, suggestive of cholecystitis. Confirmation with ultraso und is recommended. 3. Small right and trace left pleural effusions. 4. Uterine fibroids. 5. Severe chronic L2 compression fracture with associated retropulsion and canal stenosis. This could be further assessed with MRI, if clinically indicated. Reviewed by: Jennifer Holcomb MD on 10/11/2020 1:41 PM PDT Approved by: Jennifer Holcomb MD on 10/11/2020 1:41 PM PDT Station ID: [id number]
[2020-10-11 14:15] LABS: BILIRUBIN,URINE NEGATIVE (NEGATIVE); GLUCOSE, URINE (UA) NEGATIVE (NEGATIVE); KETONES,URINE (UA) NEGATIVE (NEGATIVE); LEUKOCYTE ESTERASE, URINE NEGATIVE (NEGATIVE); NITRITE,URINE NEGATIVE (NEGATIVE); OCCULT BLOOD,URINE SMALL (NEGATIVE); PH,URINE 7.5 PH (5.0-7.5); PROTEIN,URINE NEGATIVE (NEGATIVE); UROBILINOGEN,URINE 1 (NORMAL) E.U./dL (NORMAL)
[2020-10-11 14:17] LABS: CLARITY,URINE CLEAR (CLEAR)
[2020-10-11 14:26] LABS: WBC,URINE 0-3 /HPF (0-5)
[2020-10-11 14:27] LABS: BACTERIA,URINE Rare /HPF (None Seen); SQUAMOUS EPITHELIAL CELL,UR RARE Squamous (<= Few)
--- NOTE | 2020-10-11 16:21 | Ultrasound Report ---
PROCEDURE: Abdomen Limited INDICATIONS: RUQ abdomianl pain; elevated transimates TECHNIQUE: Real-time focused scanning was performed of the abdomen, with image documentation. COMPARISON: CT of abdomen and pelvis from the same day FINDINGS: Visualized portion of liver shows heterogeneous liver parenchymal echotexture without discrete hepati c lesion. There is no gallstone. No gallbladder wall thickening. Small amount of pericholecystic fluid is seen. No definite sonographic Bernabe's sign. There is mild intrahepatic biliary ductal dilatation and dila tation of common hepatic duct and common bile duct measures up to 1.6 cm in diameter. There is a ston e seen in dependent portion of, bile the. Visualized portion of pancreas shows mildly prominent pancreatic duct measures up to 4 mm in size. Right kidney measures 9.2 cm in length. There is no right-sided hydronephrosis or solid-appearing deidre al lesion. IMPRESSION: 1. Choledocholithiasis with intrahepatic biliary ductal dilatation and dilatation of common hepatic d uct and common bile duct up to 1.6 cm in diameter. 2. Trace amount of pericholecystic fluid and suggestion of hyporemake gallbladder wall, cholecystitis cannot be entirely excluded. 3. Heterogeneous liver parenchyma echotexture which may represent hepatic steatosis versus other type of metabolic liver disease. Reviewed by: Tarun Mix MD on 10/11/2020 4:20 PM PDT Approved by: Tarun Mix MD on 10/11/2020 4:20 PM PDT Station ID: [id number]
[2020-10-11] MEDS ORDERED: cefTRIAXone 1 GM VIAL IVP STA (17:52)
[2020-10-11] MEDS ORDERED: metroNIDAZOLE 500 MG/100 ML 500 MG/100 ML BAG IV ONE (17:55)
[2020-10-11 18:57] VITALS: BP 150/85
== END 2020-10-11 18:57 | disposition short-term general hospital (02) ==
LOC: ED 11:48
DX: K80.41 Calculus of bile duct with cholecystitis, unspecified, with obstruction (principal); R74.8 Abnormal levels of other serum enzymes; Z86.718 Personal history of other venous thrombosis and embolism; Z79.01 Long term (current) use of anticoagulants; D25.9 Leiomyoma of uterus, unspecified; I49.1 Atrial premature depolarization; Z88.1 Allergy status to other antibiotic agents; Z88.0 Allergy status to penicillin
CPT/HCPCS: 36415; 74177; 76705; 80053; 81001; 83690; 85025; 93005; 96374; 96375; 99283; 99285; J1170; Q9967; 81003; 87086

== ENCOUNTER 2020-12-06 13:30 | Outpatient (CLI) | payer MEDICARE, MEDICAID | END 2020-12-06 23:59 | disposition home or self-care (01) | LOC: LAB.WCP 13:30 | PROVIDERS: ATTEND Family Medicine | DX: R35.0 Frequency of micturition (principal) | CPT/HCPCS: 87086 ==

== ENCOUNTER 2020-12-22 08:00 | Outpatient (CLI) | payer MEDICARE, MEDICAID ==
[2020-12-22 17:38] LABS: BASOPHILS % (AUTO) 0.3 %; EOSINOPHILS % (AUTO) 0.7 %; HCT - HEMATOCRIT 37.2 % (37.0-47.0); HGB - HEMOGLOBIN 11.7 g/dL (12.0-16.0); LYMPHOCYTES # (AUTO) 1.8 10^3/uL (1.5-3.5); LYMPHOCYTES % (AUTO) 30.5 %; MEAN CORPUSCULAR HEMOGLOBIN 29.2 pg (27.0-31.0); MEAN CORPUSCULAR HGB CONC 31.5 g/dL (32.0-36.0); MEAN CORPUSCULAR VOLUME 92.8 fL (81.0-99.0); MEAN PLATELET VOLUME 11.3 fL (7.9-10.8); MONOCYTES # (AUTO) 0.4 10^3/uL (0.0-1.0); MONOCYTES % (AUTO) 6.7 %; NEUTROPHILS # (AUTO) 3.6 10^3/uL (1.5-6.6); NEUTROPHILS % (AUTO) 61.6 %; PLT - PLATELET COUNT 183 10^3/uL (130-450); RED BLOOD COUNT 4.01 10^6/uL (4.20-5.40); RED CELL DISTRIBUTION WIDTH 14.3 % (12.0-15.0); WHITE BLOOD COUNT 5.8 x10^3/uL (4.8-10.8)
[2020-12-22 17:56] LABS: % IRON SATURATION 34 % (20-50); ALBUMIN 3.9 g/dL (3.2-5.5); ALBUMIN/GLOBULIN RATIO 1.3 (1.0-2.2); ALKALINE PHOSPHATASE 50 IU/L (42-121); ALT ALANINE AMINOTRANSFERASE 13 IU/L (10-60); AST ASPARTATE AMINOTRANSFERASE 16 IU/L (10-42); BILIRUBIN,TOTAL 0.9 mg/dL (0.2-1.0); BUN - BLOOD UREA NITROGEN 22 mg/dL (6-20); CALCIUM 9.9 mg/dL (8.5-10.3); CARBON DIOXIDE - CO2 27 mmol/L (21-32); CHLORIDE 100 mmol/L (101-111); CHOL/HDL RATIO 1.8 (<4.4); CHOLESTEROL 153 mg/dL; CREATININE 0.7 mg/dL (0.4-1.0); GFR - MDRD 81 (>89); GLUCOSE 88 mg/dL (70-100); HDL CHOLESTEROL 85 mg/dL; IRON 105 ug/dL (28-170); LDL CHOLESTEROL,CALCULATED 59 mg/dL; LDL/HDL RATIO 0.7 (<4.4); POTASSIUM 4.4 mmol/L (3.5-5.0); SODIUM 136 mmol/L (135-145); TOTAL IRON BINDING CAPACITY 309 ug/dL (250-450); TOTAL PROTEIN 6.9 g/dL (6.7-8.2); TRANSFERRIN 221 mg/dL (192-382); TRIGLYCERIDES 43 mg/dL; VLDL CHOLESTEROL 9 mg/dL
[2020-12-22 18:06] LABS: THYROID STIMULATING HORMONE 0.49 uIU/mL (0.34-5.60)
[2020-12-22 18:12] LABS: FERRITIN 156.3 ng/mL (11.0-306.8)
== END 2020-12-22 23:59 | disposition home or self-care (01) ==
LOC: LAB.WCP 08:00
PROVIDERS: ATTEND Internal Medicine
DX: E78.5 Hyperlipidemia, unspecified (principal); D64.9 Anemia, unspecified; F41.0 Panic disorder [episodic paroxysmal anxiety]
CPT/HCPCS: 36415; 80053; 80061; 82728; 83540; 83721; 84443; 84466; 85025

== ENCOUNTER 2021-02-01 14:30 | Outpatient (CLI) | payer MEDICARE, MEDICAID | END 2021-02-01 14:31 | disposition left against medical advice (07) | LOC: EMS 14:30 | DX: R53.1 Weakness (principal); Z79.01 Long term (current) use of anticoagulants ==

== ENCOUNTER 2021-02-12 06:24 | Day surgery (SDC) | payer MEDICARE, MEDICAID ==
[~2021-02-12 06:24] MED LIST: CEFAZOLIN SODIUM IN 0.9 % NACL 0 GM/0 ML BAG IV ONE; CEFAZOLIN SODIUM IN 0.9 % NACL 2 GM/100 ML BAG IV ONE
[2021-02-12] MEDS ORDERED: LACTATED RINGERS 1,000 ML IV ONE ×2 (06:50→09:15)
[2021-02-12] MEDS ORDERED: KETOROLAC 30 MG/ML VIAL ONE (07:03)
[2021-02-12] MEDS ORDERED: LIDOCAINE-MPF 2% 5 ML VIAL ONE (07:03)
[2021-02-12] MEDS ORDERED: ONDANSETRON 4 MG/2 ML VIAL ONE (07:03)
[2021-02-12] MEDS ORDERED: ROCURONIUM 50 MG/5 ML VIAL ONE (07:03)
[2021-02-12] MEDS ORDERED: fentaNYL 100 MCG/2 ML VIAL ONE (07:03)
[2021-02-12] MEDS ORDERED: PROPOFOL 200 MG/20 ML VIAL IVP ONE (07:03)
[2021-02-12] MEDS ORDERED: DEXAMETHASONE 4 MG/ML VIAL ONE (07:03)
[2021-02-12] MEDS ORDERED: NALOXONE 0.4 MG/ML VIAL IVP PRN (07:18)
[2021-02-12] MEDS ORDERED: ePHEDrine 50 MG/ML VIAL IVP PRN (07:18)
[2021-02-12] MEDS ORDERED: HYDROmorphone 0.5 MG/0.5 ML SYRINGE IVP PRN (07:18)
[2021-02-12] MEDS ORDERED: METOCLOPRAMIDE 10 MG/2 ML VIAL IVP PRN (07:18)
[2021-02-12] MEDS ORDERED: fentaNYL 100 MCG/2 ML VIAL IVP PRN (07:18)
[2021-02-12] MEDS ORDERED: ONDANSETRON 4 MG/2 ML VIAL IVP PRN ×2 (07:18→09:10)
[2021-02-12] MEDS ORDERED: ATROPINE ABBOJECT 1 MG/10 ML SYRINGE IVP PRN (07:18)
[2021-02-12] MEDS ORDERED: MORPHINE 2 MG/ML CARPUJECT IVP PRN (07:18)
--- NOTE | 2021-02-12 07:18 | ANESTHESIA ---
Pre-Anesthesia VS, & Labs - Diagnosis cholelithiasis - Procedure laparoscopic cholecystectomy Vital Signs: Temp Pulse Resp BP Pulse Ox 36.3 C L 92 20 169/82 H 96 02/12/21 06:30 02/12/21 06:30 02/12/21 06:30 02/12/21 06:30 02/12/21 06:30 Height: 5 ft 4 in Weight (kg): 68.3 kg Body Mass Index: 25.8 BMI Classification: Overweight - NPO >8 hours - Is Patient ?: No - Lab Results Lab results reviewed: Yes Home Medications and Allergies Home Medications: Ambulatory Orders Hydrocodone/Acetaminophen [Hydrocodone-Acetamin 10-325 mg] 1 tab PO BID 02/05/21 diltiaZEM CD [Cardizem Cd] 240 mg PO DAILY 02/05/21 Atorvastatin Calcium 40 mg PO DAILY 02/05/21 Divalproex [Domingo Smith] 9 tab PO DAILY 02/05/21 Hydrocodone/Acetaminophen [Hydrocodone-Acetamin 10-325 mg] 1 tab PO BID 02/05/21 Mirtazapine 30 mg PO DAILY 02/05/21 Prazosin HCl [Minipress] 2 mg PO DAILY 02/05/21 Rivaroxaban [Xarelto] 20 mg PO QPM 02/05/21 Temazepam [Restoril] 15 mg PO DAILY 02/05/21 diltiaZEM CD [Cardizem Cd] 240 mg PO DAILY 02/05/21 Allergies/Adverse Reactions: Allergies Allergy/AdvReac Type Severity Reaction Status Date / Time Tetracyclines Allergy Intermediate Rash Verified 10/11/20 11:56 ciprofloxacin Allergy Nausea Verified 10/11/20 11:56 amoxicillin trihydrate * AdvReac Intermediate Nausea Verified 10/11/20 11:56 [From Augmentin] Penicillins AdvReac Nausea Verified 10/11/20 11:56 Anes History & Medical History - Anesthetic History Anesthesia Complications: reports: No previous complications Family history of Anesthesia Complications: Denies Family history of Malignant Hyperthermia: Denies - Medical History Cardiovascular: reports: Hypertension, High cholesterol, Atrial fibrillation Pulmonary: reports: Asthma Gastrointestinal: reports: Ulcers Urinary: reports: Incontinence Musculoskeletal: reports: Osteoarthritis, Fibromyalgia, Chronic back pain Endocrine/Autoimmune: reports: None Skin: reports: None Smoking Status: Never smoker - Surgical History General: reports: Colonoscopy, Other Eyes Ears Nose Throat (EENT): reports: Tonsil/Adenoidectomy Orthopedic: reports: Arthroscopic surgery, Other Exam General: Alert, Oriented x3, Cooperative Dental: WNL Mouth Openin Fingerbreadth Neck Mobility: Normal Mallampati classification: II Thyromental Distance: 4-6 cm Respiratory: Lungs clear, Normal breath sounds, No respiratory distress Cardiovascular: Regular rate Mental/Cognitive Status: Alert/Oriented X3, Normal for patient Cognitive Status: Within normal limits Plan Anesthesia Type: General Consent for Procedure(s) Verified and Reviewed: No Code Status: Attempt Resuscitation ASA classification: 3-Severe systemic disease Is this case an emergency?: No
[2021-02-12] MEDS ORDERED: BUPIVACAINE 0.5% PF 10 ML VIAL ONE (07:27)
[2021-02-12] MEDS ORDERED: LIDOCAINE 2%-EPI 1:100000 20 ML MDV ONE (07:27)
[2021-02-12] MEDS ORDERED: LACTATED RINGERS 1,000 ML IV SCH (08:00)
[2021-02-12] MEDS ORDERED: LIDOCAINE 2%-EPI 1:100000 20 ML MDV SUBQ ONE (08:38)
[2021-02-12] MEDS ORDERED: BUPIVACAINE 0.5% PF 10 ML VIAL INFIL ONE (08:38)
[2021-02-12] MEDS ORDERED: SUGAMMADEX 200 MG/2 ML VIAL IVP ONE (08:59)
--- NOTE | 2021-02-12 09:09 | OPERATIVE REPORT ---
Operative Report - General Procedure Date: 02/12/21 Planned Procedure: Laparoscopic cholecystectomy Pre-Op Diagnosis: Cholelithiasis and recent episode of choledocholithiasis Procedure Performed: Laparoscopic cholecystectomy Post Op Diagnosis: Same - Procedure Note Primary Surgeon: Shiraz Anesthesia Provider: TYREE Gardner Anesthesia Technique: General ET tube, Local Pathology: Gallbladder to pathology in formalin Estimated Blood Loss (mL): 15 Findings: Distended and thin-walled gallbladder with multiple adhesions to the colon and duodenum Complications: None apparent - Other Other Information/Narrative: After obtaining informed consent the patient is brought to the operating room and placed in the supine position on the operating table. Following successful induction of general endotracheal anesthesia, appropriate padding of all bony prominences, and placement of appropriate monitors, the abdomen was prepped and draped in the standard surgical fashion. A timeout was held per scope protocol. All elements of the surgical safety checklist were followed before, during, and after the procedure. Following infiltration with local anesthetic to create a field block, an i ncision was created inferior to the umbilicus and carried down through the skin and subcutaneous tissue to reveal the fascia below. 2-0 Vicryl retention sutures were placed on either side of the midline and the abdomen was entered under direct vision using a 15 blade scalpel. A 10 mm blunt [place] balloon trocar was placed in the abdominal cavity and it was insufflated to 15 mmHg pressure. The patient was placed in reverse Trendelenburg position with the left side rotated toward the floor. A second trocar, 5 mm, was placed in the midepigastrium under direct vision and after anesthetization of the surrounding skin.A third trocar, also 5 mm was placed in the right upper quadrant for retraction of the gallbladder and a fourth 1 just medial to that as a working port as well. The gallbladder was examined. It was adherent to the surrounding structures including the omentum and the right colon. These structures were carefully dissected free from the surface of the gallbladder using a mixture of blunt and sharp dissection. The fundus of the gallbladder was then grasped and elevated up over the liver revealing the cholecysto hepatoduodenal ligament. The neck of the gallbladder was retracted laterally and the cystic duct and artery were carefully identified. The common duct was visualized but not skeletonized. The cystic duct was clipped 3 times proximally and once distally and divided, the cystic artery was clipped twice proximally, once distally, and divided. The gallbladder was then liberated from its bed in the liver using cautery. It was placed in an Endo Catch bag and removed via the umbilical port with a camera in the epigastric position. The camera was replaced in the umbilical position and the abdomen was checked for hemostasis. It was irrigated with warm saline solution and aspirated free of all fluid and particulate matter. The trochars were then removed under direct vision and the abdomen desufflated. The umbilical incision was closed with interrupted Vicryl suture and Monocryl was placed in all of the skin incisions. All sponge, needle, and instrument counts were correct at the conclusion of the case. The patient was allowed awaken from anesthesia without difficulty and taken to the postanesthesia care unit in good condition.
[2021-02-12] MEDS ORDERED: HYDROmorphone 1 MG/ML CARPUJECT IVP PRN (09:10)
[2021-02-12] MEDS ORDERED: SODIUM CHLORIDE FLUSH 0.9% 10 ML SYRINGE IVP PRN (09:10)
--- NOTE | 2021-02-12 10:26 | ANESTHESIA POST OP EVALUATION ---
Anesthesia Post Eval - Post Anesthesia Eval Vitals: Last Vital Signs Temp 36.8 C 02/12/21 10:00 Pulse 77 02/12/21 10:00 Resp 18 02/12/21 10:00 BP 142/75 H 02/12/21 10:00 Pulse Ox 94 02/12/21 10:00 CV Function Including HR & BP: Stable Pain Control: Satisfactory Nausea & Vomiting: Negative Mental Status: Baseline Respiratory Status: Airway Patent Hydration Status: Satisfactory Anesthesia Complications: None
[2021-02-12] MEDS: SODIUM CHLORIDE 0.9% 1,000 ML IV SCH (10:33)
[2021-02-12] MEDS: HYDROmorphone 0.5 MG/0.5 ML SYRINGE IVP PRN ×2 (11:56→14:08)
[2021-02-12] MEDS: ACETAMINOPHEN 325 MG TABLET PO PRN (11:57)
[2021-02-12] MEDS: DIVALPROEX DR 125 MG TABLET PO SCH ×3 (11:58→21:10)
[2021-02-12] MEDS: diltiaZEM CD 240 MG CAPSULE PO SCH (11:58)
[2021-02-12] MEDS: GABAPENTIN 300 MG CAPSULE PO SCH ×2 (14:07→21:10)
[2021-02-12] MEDS: KETOROLAC 15 MG/ML VIAL IVP SCH ×2 (14:07→21:07)
[2021-02-12] MEDS: SODIUM CHLORIDE FLUSH 0.9% 10 ML SYRINGE IVP SCH ×2 (16:32→23:52)
[2021-02-12] MEDS ORDERED: RIVAROXABAN 10 MG TABLET PO SCH (17:00)
[2021-02-12] MEDS ORDERED: PRAZOSIN 1 MG CAPSULE PO SCH (21:00)
[2021-02-12] MEDS ORDERED: ATORVASTATIN 40 MG TABLET PO SCH (21:00)
[2021-02-12] MEDS ORDERED: MIRTAZAPINE 15 MG TABLET PO SCH (21:00)
[2021-02-12] MEDS ORDERED: TEMAZEPAM 15 MG CAPSULE PO SCH (21:00)
[2021-02-13] MEDS: KETOROLAC 15 MG/ML VIAL IVP SCH ×2 (01:56→08:38)
[2021-02-13] MEDS: oxyCODONE 5 MG TABLET PO PRN ×2 (05:20→11:38)
[2021-02-13 05:36] LABS: BASOPHILS % (AUTO) 0.2 %; EOSINOPHILS % (AUTO) 0.1 %; HCT - HEMATOCRIT 34.1 % (37.0-47.0); HGB - HEMOGLOBIN 11.2 g/dL (12.0-16.0); LYMPHOCYTES # (AUTO) 1.1 10^3/uL (1.5-3.5); LYMPHOCYTES % (AUTO) 11.5 %; MEAN CORPUSCULAR HEMOGLOBIN 30.3 pg (27.0-31.0); MEAN CORPUSCULAR HGB CONC 32.8 g/dL (32.0-36.0); MEAN CORPUSCULAR VOLUME 92.2 fL (81.0-99.0); MEAN PLATELET VOLUME 9.9 fL (7.9-10.8); MONOCYTES # (AUTO) 0.8 10^3/uL (0.0-1.0); MONOCYTES % (AUTO) 8.3 %; NEUTROPHILS # (AUTO) 7.7 10^3/uL (1.5-6.6); NEUTROPHILS % (AUTO) 79.5 %; PLT - PLATELET COUNT 140 10^3/uL (130-450); RED CELL DISTRIBUTION WIDTH 13.9 % (12.0-15.0); WHITE BLOOD COUNT 9.7 x10^3/uL (4.8-10.8)
[2021-02-13 05:44] LABS: ALBUMIN 2.9 g/dL (3.2-5.5); ALBUMIN/GLOBULIN RATIO 1.1 (1.0-2.2); BILIRUBIN,TOTAL 0.3 mg/dL (0.2-1.0); CALCIUM 8.7 mg/dL (8.5-10.3); CREATININE 0.6 mg/dL (0.4-1.0); POTASSIUM 4.7 mmol/L (3.5-5.0); TOTAL PROTEIN 5.5 g/dL (6.7-8.2)
[2021-02-13] MEDS: SODIUM CHLORIDE 0.9% 1,000 ML IV SCH (06:01)
[2021-02-13] MEDS: DIVALPROEX DR 125 MG TABLET PO SCH (06:01)
[2021-02-13] MEDS: GABAPENTIN 300 MG CAPSULE PO SCH (06:01)
[2021-02-13] MEDS ORDERED: PANTOPRAZOLE 40 MG TABLET PO SCH (07:00)
[2021-02-13] MEDS: SODIUM CHLORIDE FLUSH 0.9% 10 ML SYRINGE IVP SCH (08:40)
[2021-02-13] MEDS: diltiaZEM CD 240 MG CAPSULE PO SCH (08:40)
[2021-02-13 08:52] VITALS: BP 138/71
[2021-02-13] MEDS: ACETAMINOPHEN 325 MG TABLET PO PRN (11:38)
[2021-02-13] MEDS ORDERED: ONDANSETRON 4 MG/2 ML VIAL IVP PRN (12:11)
[2021-02-13] MEDS ORDERED: oxyCODONE 5 MG TABLET PO PRN (12:11)
[2021-02-13] MEDS ORDERED: ACETAMINOPHEN 325 MG TABLET PO PRN (12:11)
[2021-02-17] MEDS ORDERED: IBUPROFEN 600 MG TABLET PO PRN (14:00)
== END 2021-02-13 12:30 | disposition home or self-care (01) ==
LOC: SDS 06:24 → MS2 09:44 → SDS 02-13 12:30
PROVIDERS: ATTEND Surgery
PROC: 0FT44ZZ Resection of Gallbladder, Percutaneous Endoscopic Approach (ICD-10-PCS; principal; 2021-02-12 07:30)
DX: K81.1 Chronic cholecystitis (principal); I48.91 Unspecified atrial fibrillation; I10 Essential (primary) hypertension; J44.9 Chronic obstructive pulmonary disease, unspecified
CPT/HCPCS: 36415; 47562; 80053; 85025; A9270; J0690; J1170; J7120

== ENCOUNTER 2021-03-19 10:35 | Outpatient (CLI) | payer MEDICARE, MEDICAID ==
--- NOTE | 2021-03-20 11:53 | CT Report ---
PROCEDURE: CHEST WO INDICATIONS: MULTIPLE NODULES OF LUNG TECHNIQUE: Noncontrast 1mm axial images were acquired from the pulmonary apices to the posterior costophrenic an gles. Axial 5 mm soft tissue kernel reconstructions were performed as well as 8 mm axial MIP and cor onal and sagittal 5 mm reformations. For radiation dose reduction, the following was used: automate d exposure control, adjustment of mA and/or kV according to patient size. COMPARISON: None. FINDINGS: Thyroid: Homogeneous. Vasculature: Normal size and contour. Heart: No cardiomegaly or pericardial effusion. Mediastinum/sunil: No pathologically enlarged lymph nodes by size criteria. Lung/pleura: Small right pleural effusion with adjacent atelectasis. Biapical pleural thickening/scar ring. Scattered calcifications in the right middle and lower lobes, which may reflect granulomatous c hange. 5 mm noncalcified nodule in the right lower lobe (series 7, image 210). Tracheobronchial tree: Patent. Mild dilatation of bronchial wall thickening. Upper abdomen: No acute abnormality. Bones: Advanced compression deformity of T4 without significant retropulsion. Mild to moderate T11 co mpression deformity. Advanced L2 compression deformity with retropulsion, causing some degree of spin al canal stenosis. Remote fracture deformity of the left posterior fourth rib. Chest wall: No significant abnormality. IMPRESSION: 1.Small right pleural effusion with adjacent atelectasis. 2. 5 mm noncalcified pulmonary nodule right lower lobe. No routine follow-up unless the patient is a candidate for lung screening. Reviewed by: Sree Davis MD on 03/20/2021 11:52 AM PDT Approved by: Sree Davis MD on 03/20/2021 11:52 AM PDT Station ID: [id number]
== END 2021-03-19 10:36 | disposition home or self-care (01) ==
LOC: DI 10:35
PROVIDERS: ATTEND Internal Medicine
DX: J90 Pleural effusion, not elsewhere classified (principal); R91.1 Solitary pulmonary nodule

== ENCOUNTER 2021-05-24 12:25 | Emergency (ER) | payer MEDICARE, MEDICAID ==
[2021-05-24 12:45] LABS: BASOPHILS % (AUTO) 0.2 %; EOSINOPHILS # (AUTO) 0.1 10^3/uL (0.0-0.7); EOSINOPHILS % (AUTO) 1.1 %; HCT - HEMATOCRIT 36.7 % (37.0-47.0); HGB - HEMOGLOBIN 11.9 g/dL (12.0-16.0); LYMPHOCYTES # (AUTO) 1.1 10^3/uL (1.5-3.5); LYMPHOCYTES % (AUTO) 24.8 %; MEAN CORPUSCULAR HEMOGLOBIN 30.1 pg (27.0-31.0); MEAN CORPUSCULAR HGB CONC 32.4 g/dL (32.0-36.0); MEAN CORPUSCULAR VOLUME 92.9 fL (81.0-99.0); MEAN PLATELET VOLUME 9.8 fL (7.9-10.8); MONOCYTES # (AUTO) 0.4 10^3/uL (0.0-1.0); MONOCYTES % (AUTO) 8.1 %; NEUTROPHILS % (AUTO) 65.6 %; PLT - PLATELET COUNT 125 10^3/uL (130-450); RED BLOOD COUNT 3.95 10^6/uL (4.20-5.40); RED CELL DISTRIBUTION WIDTH 14.2 % (12.0-15.0); WHITE BLOOD COUNT 4.6 x10^3/uL (4.8-10.8)
[2021-05-24 12:50] LABS: CALCIUM 9.2 mg/dL (8.5-10.3); CREATININE 0.8 mg/dL (0.4-1.0); POTASSIUM 4.1 mmol/L (3.5-5.0)
--- NOTE | 2021-05-24 13:07 | XRAY Report ---
PROCEDURE: Knee 4 View LT INDICATIONS: fall L knee pain TECHNIQUE: 4 views of the left knee were acquired. COMPARISON: None. FINDINGS: Bones: No acute fractures or dislocations. A small a fine sclerotic lesion in the distal femoral met aphysis may represent an enchondroma or prior bone infarct. There is generalized osteopenia. Soft tissues: No joint effusion. No suspicious soft tissue calcifications. IMPRESSION: 1.No acute osseous abnormality. If there is clinical concern or persistent symptoms, additional imagi ng such as repeat radiographs or advanced imaging (e.g. CT, MRI) may be helpful for further evaluatio n. 2.Sclerotic lesion in the distal femoral metaphysis is most likely a benign lesion such as an enchond karen or chronic bone infarct if there is no history of metastatic disease. Consider repeat radiograph s in 3-6 months to evaluate for change. Reviewed by: Ross Madrid MD on 05/24/2021 1:06 PM PST Approved by: Ross Madrid MD on 05/24/2021 1:06 PM PST Station ID: [id number]
--- NOTE | 2021-05-24 13:23 | CT Report ---
PROCEDURE: CT brain without contrast INDICATIONS: 75-year-old female with trauma and history of therapeutic anticoagulation TECHNIQUE: Noncontrast 4.5 mm thick angled axial sections acquired from the foramen magnum to the vertex. For r adiation dose reduction, the following was used: automated exposure control, adjustment of mA and/or kV according to patient size. COMPARISON: None. FINDINGS: Image quality: Excellent. CSF spaces: Basal cisterns are patent. No extra-axial fluid collections. Ventricles are normal in size and shape. Brain: No midline shift. No intracranial masses or hemorrhage. Warren-white matter interface is norm al. Moderate atrophy and multifocal white matter chronic ischemic change noted. Atherosclerotic vasc ular calcification noted in the cavernous segments of both internal carotid arteries as well as the i ntradural vertebral arteries. Skull and face: Calvarium and visualized facial bones are intact, without suspicious lesions. Sinuses: Visualized sinuses and mastoids are clear. IMPRESSION: Atrophy and chronic ischemic change without intracranial hemorrhage or mass effect. Reviewed by: Maximilian Brock MD on 05/24/2021 12:22 PM [place] Approved by: Maximilian Brock MD on 05/24/2021 12:22 PM [place] Station ID: [id number]
--- NOTE | 2021-05-24 13:30 | CT Report ---
PROCEDURE: CERVICAL SPINE WO INDICATIONS: fall, neck pain TECHNIQUE: Noncontrast 3 mm thick sections acquired from the skull base to the T4 level. Sagittal and coronal r eformats were then constructed. For radiation dose reduction, the following was used: automated exp osure control, adjustment of mA and/or kV according to patient size. COMPARISON: None. FINDINGS: Image quality: Excellent. Bones: No fractures or dislocations. Visualized superior ribs are intact. Spine degenerative disc d isease and facet arthropathy are noted. 1.4 x 1.2 cm sclerotic lesion noted in the anterior margin of the T2 vertebral body which appears to extend beyond the cortex along the anterior margin of the T1- T2 disc and anterior margin of the T1 vertebral body. Soft tissues: Prevertebral soft tissues are normal in thickness. No paravertebral hematomas. No ap ical pneumothoraces. IMPRESSION: 1. No fracture. No acute osseous lesion. If there is continued clinical concern for pathology, then M RI should be considered for further evaluation. 2. 0.4 x 1.2 cm T2 sclerotic lesion. Lesion may represent a bone island, however neoplastic process i ncluding sclerotic metastatic lesion cannot be excluded without additional characterization. Recommen d MRI of cervical spine with and without contrast when clinically feasible. Reviewed by: Jenni Willis MD, PhD on 05/24/2021 1:29 PM PST Approved by: Jenni Willis MD, PhD on 05/24/2021 1:29 PM PST Station ID: [id number]
--- NOTE | 2021-05-24 13:47 | CT Report ---
PROCEDURE: CHEST WO INDICATIONS: fall, L rib/chest pain TECHNIQUE: Noncontrast 1mm axial images were acquired from the pulmonary apices to the posterior costophrenic an gles. Axial 5 mm soft tissue kernel reconstructions were performed as well as 8 mm axial MIP and cor onal and sagittal 5 mm reformations. For radiation dose reduction, the following was used: automate d exposure control, adjustment of mA and/or kV according to patient size. COMPARISON: March 16, 2021. FINDINGS: Thyroid: Homogeneous. Vasculature: Normal size and contour. Heart: No cardiomegaly or pericardial effusion. Mediastinum/sunil: No pathologically enlarged lymph nodes by size criteria. Lung/pleura: Biapical pleural thickening/scarring. Bilateral posterior pleural thickening. Scattered calcifications in the right middle and lower lobes, which may reflect granulomatous change. The prev iously demonstrated noncalcified pulmonary nodule may reflect mucoid impaction within a distal right lower lobe bronchus (i.e 4-224; 4-239). No pneumothorax. Tracheobronchial tree: Patent. Mild dilatation of bronchial wall thickening. Upper abdomen: No acute abnormality. Bones: Cortical irregularity of the left eighth rib, compatible with a minimally versus fracture (4-1 73). Advanced compression deformity of T4 without significant retropulsion. Mild to moderate T11 comp ression deformity. Advanced L2 compression deformity with retropulsion, causing some degree of spinal canal stenosis. Remote fracture deformity of the left posterior fourth rib. Chest wall: No significant abnormality. IMPRESSION: 1.Minimal displaced fracture of the left eighth rib. 2. Areas of mucoid impaction within a distal right lower lobe bronchus. Reviewed by: Sree Davis MD on 05/24/2021 1:46 PM PST Approved by: Sree Davis MD on 05/24/2021 1:46 PM PST Station ID: [id number]
--- NOTE | 2021-05-24 14:05 | ED Physician Documentation ---
History of Present Illness - Stated complaint Stated Complaint: GLF - Chief complaint Chief Complaint: Trauma Hd/Nk - History obtained from History obtained from: Patient - History of Present Illness Timing: Last night Pain level max: 6 Pain level now: 6 - Additonal information Additional information: Patient is a 75-year-old female who presents to the emergency department after a fall last night. She is on Xarelto and struck her head. She is now complaining of sharp left-sided chest wall pain. Also complains of a dull ache to the knee. Worse with walking and better with rest. No fevers. No chills. No loss of consciousness. No vomiting. No neck or back pain. Worse with movement and palpation. Nothing makes it better. Review of Systems Ten Systems: 10 systems reviewed and negative Constitutional: denies: Fever, Chills Nose: denies: Rhinorrhea / runny nose, Congestion Respiratory: denies: Cough GI: denies: Nausea, Vomiting, Diarrhea Skin: denies: Rash Musculoskeletal: denies: Neck pain, Back pain Neurologic: denies: Headache PD PAST MEDICAL HISTORY - Past Medical History Cardiovascular: Hypertension, High cholesterol, Atrial fibrillation Respiratory: Asthma Endocrine/Autoimmune: None GI: Ulcers : Incontinence HEENT: Chronic vision loss, Chronic hearing loss Psych: Depression, Bipolar disorder, Panic attacks, Post traumatic stress disorder Musculoskeletal: Osteoarthritis, Fibromyalgia, Chronic back pain Derm: None - Past Surgical History Past Surgical History: Yes General: Colonoscopy, Other Ortho: Arthroscopic surgery, Other HEENT: Tonsil/Adenoidectomy - Present Medications Home Medications: Ambulatory Orders Medication Instructions Recorded Confirmed Atorvastatin Calcium 40 mg PO DAILY 02/05/21 02/12/21 Jeremy Smith [Domingo Smith] 375 mg PO TID 02/05/21 02/12/21 Hydrocodone/Acetaminophen 1 tab PO BID 02/05/21 02/12/21 [Hydrocodone-Acetamin 10-325 mg] Prazosin HCl [Minipress] 2 - 4 mg PO QPM 02/05/21 02/12/21 Rivaroxaban [Xarelto] 20 mg PO QDDINNER 02/05/21 02/12/21 Temazepam [Restoril] 30 mg PO QPM PRN 02/05/21 02/12/21 diltiaZEM CD [Cardizem Cd] 240 mg PO DAILY 02/05/21 02/12/21 Budesonide/Formoterol Fumarate 2 puffs INH BID 02/12/21 02/12/21 [Symbicort 160-4.5 Mcg Inhaler] Gabapentin [Neurontin] 600 mg PO TID 02/12/21 02/12/21 Mirtazapine 45 mg PO QPM 02/12/21 02/12/21 Ondansetron Odt [Zofran Odt] 4 mg TL Q6H PRN #10 tablet 02/13/21 oxyCODONE [Roxicodone] 5 mg PO Q6H PRN #20 tablet 02/13/21 HYDROcod/ACETAM 5/325 [[place] 5/325] 1 - 2 ea PO Q6H PRN #14 tablet 05/24/21 - Allergies Allergies/Adverse Reactions: Allergies Allergy/AdvReac Type Severity Reaction Status Date / Time Tetracyclines Allergy Intermediate Rash Verified 10/11/20 11:56 ciprofloxacin Allergy Nausea Verified 10/11/20 11:56 amoxicillin trihydrate * AdvReac Intermediate Nausea Verified 10/11/20 11:56 [From Augmentin] Penicillins AdvReac Nausea Verified 10/11/20 11:56 - Social History Does the pt smoke?: No Smoking Status: Never smoker Does the pt drink ETOH?: No Does the pt have substance abuse?: No - POLST Patient has POLST: No PD ED PE NORMAL - Vitals Vital signs reviewed: Yes - General General: Alert and oriented X 3, No acute distress, Well developed/nourished - HEENT HEENT: Atraumatic, PERRL, Moist mucous membranes, Pharynx benign - Neck Neck: Supple, no meningeal sign, No bony TTP - Respiratory Respiratory: No respiratory distress, Clear bilaterally, Other (Tender to palpation over the left anterior ribs, approximately ribs 8 through 10. No crepitus or ecchymosis.) - Abdomen Abdomen: Soft, Non tender, Non distended - Back Back: No spinal TTP - Derm Derm: Warm and dry - Extremities Extremities: Other (Left knee - Mild tenderness along the medial joint line. No joint effusion. No swelling. Neurovascular intact. ACL, MCL, PCL, LCL are intact.) - Neuro Neuro: Alert and oriented X 3 Results - Vitals Vitals: Vital Signs - 24 hr 05/24/21 05/24/21 12:28 14:00 Temperature 37.2 C Heart Rate 90 86 Respiratory 18 20 Rate Blood Pressure 159/99 H 146/85 H O2 Saturation 95 95 Oxygen O2 Source [Without Activity] Room air O2 Source Room air - Labs Labs: Laboratory Tests 05/24/21 05/24/21 12:37 12:37 WBC 4.6 L RBC 3.95 L Hgb 11.9 L Hct 36.7 L MCV 92.9 MCH 30.1 MCHC 32.4 RDW 14.2 Plt Count 125 L MPV 9.8 Neut # (Auto) 3.0 Lymph # (Auto) 1.1 L [place] # (Auto) 0.4 Eos # (Auto) 0.1 Baso # (Auto) 0.0 Absolute Nucleated RBC 0.00 Nucleated RBC % 0.0 Sodium 141 Potassium 4.1 Chloride 104 Carbon Dioxide 29 Anion Gap 8.0 BUN 23 H Creatinine 0.8 Estimated GFR (MDRD) 70 L Glucose 94 Calcium 9.2 - Rads (name of study) L knee xray Radiology: Final report received, EMP read contemporaneously, See rad report Ct chest Radiology: Final report received, EMP read contemporaneously, See rad report ct head wo Radiology: Final report received, EMP read contemporaneously, See rad report ct cervical spine wo Radiology: Final report received, EMP read contemporaneously, See rad report PD MEDICAL DECISION MAKING - ED course Complexity details: reviewed results, re-evaluated patient, considered differential, d/w patient ED course: 75-year-old female status post a fall last night. No acute findings on x-ray and CT other than and 8th rib fracture. She does have several incidental findings, these will be followed up by her PCP for further evaluation. Patient informed of the findings. Hany wrap applied to the knee and given a walker. Patient is ambulating well. Will prescribe pain medication for home. I am prescribing a short course of short-acting opioid pain medication for this patient. I have reviewed the patients [employer] and no concerning findings were noted. I have discussed that the opioids are for short term therapy only, and will not be refilled from the ED. patient counseled regarding signs and symptoms for which I believe and urgent re-evaluation would be necessary. Patient with good understanding of and agreement to plan and is comfortable going home at this time This document was made in part using voice recognition software. While efforts are made to proofread this document, sound alike and grammatical errors may occur. L knee xray IMPRESSION: 1.No acute osseous abnormality. If there is clinical concern or persistent symptoms, additional imaging such as repeat radiographs or advanced imaging (e.g. CT, MRI) may be helpful for further evaluation. 2.Sclerotic lesion in the distal femoral metaphysis is most likely a benign lesion such as an enchondroma or chronic bone infarct if there is no history of metastatic disease. Consider repeat radiographs in 3-6 months to evaluate for change. CT head IMPRESSION: Atrophy and chronic ischemic change without intracranial hemorrhage or mass effect. CT Cervical Spine: IMPRESSION: 1. No fracture. No acute osseous lesion. If there is continued clinical concern for pathology, then MRI should be considered for further evaluation. 2. 0.4 x 1.2 cm T2 sclerotic lesion. Lesion may represent a bone island, however neoplastic process including sclerotic metastatic lesion cannot be excluded without additional characterization. Beni mmend MRI of cervical spine with and without contrast when clinically feasible. CT CHEST IMPRESSION: 1.Minimal displaced fracture of the left eighth rib. 2. Areas of mucoid impaction within a distal right lower lobe bronchus. Departure - Departure Disposition: 01 Home, Self Care Clinical Impression: Rib fracture Qualifiers: Encounter type: initial encounter Rib fracture type: single rib Fracture type: closed Laterality: left Qualified Code(s): S22.32XA - Fracture of one rib, left side, initial encounter for closed fracture Condition: Good Instructions: ED Fx Rib Follow-Up: Sharan Yepez MD [Primary Care Provider] - Within 1 week Prescriptions: HYDROcod/ACETAM 5/325 [[place] 5/325] 1 - 2 ea PO Q6H PRN #14 tablet PRN Reason: Pain Comments: Please follow-up with your doctor in 1 week for repeat evaluation. You do have a left eighth rib fracture. Return if you worsen. Your prescriptions were sent to [facility] in [place] I am prescribing a short course of narcotic pain medication for you. These are potentially dangerous and addictive medications that should be used carefully. These medications may constipate you. Take an uxpc-bng-zhzoage stool softener (docusate) twice daily with plenty of water while taking these medications. If you go 24 hours without a bowel movement, take ymuu-[id number] miralax, per package instructions. Do not drink or drive while taking these medications. If you received narcotic or sedating medications while in the emergency department, do not drive for 24 hours. Store this medication in a safe, secure place and out of reach of children. It is a violation of federal law to give or sell this medication to another person or to use in a manner other than prescribed. The ED will not refill narcotic prescriptions, including prescriptions lost or stolen. To dispose of unwanted medications: 1. [facility] at [address] in [place] has a medication drop box. They accept prescription medications (in pill form) Friday through Friday 9:00 a.m. to 5:00 p.m. 2. [facility] [employer] [facility] accepts prescription medications (in pill form only) for disposal year round. Call for more information. 3. Contact the [facility] for the next [facility] sponsored prescription drug collection event. , [phone], or [phone];
[2021-05-24 14:07] VITALS: BP 146/85
== END 2021-05-24 14:33 | disposition home or self-care (01) ==
LOC: ED 12:25
DX: S22.32XA Fracture of one rib, left side, initial encounter for closed fracture (principal); W19.XXXA Unspecified fall, initial encounter; R93.6 Abnormal findings on diagnostic imaging of limbs; R93.7 Abnormal findings on diagnostic imaging of other parts of musculoskeletal system; Z79.01 Long term (current) use of anticoagulants
CPT/HCPCS: 36415; 80048; 85025; 99282; 99284

== ENCOUNTER 2021-05-26 11:30 | Outpatient (CLI) | payer MEDICARE, MEDICAID | END 2021-05-26 11:31 | disposition critical access hospital (66) | LOC: EMS 11:30 | DX: R51.9 Headache, unspecified (principal); R10.9 Unspecified abdominal pain; W18.30XA Fall on same level, unspecified, initial encounter; Y92.003 Bedroom of unspecified non-institutional (private) residence as the place of occurrence of the external cause | CPT/HCPCS: A0425; A0429 ==

== ENCOUNTER 2021-05-26 11:51 | Inpatient (IN) | payer MEDICARE, MEDICAID ==
[2021-05-26 12:44] LABS: BASOPHILS % (AUTO) 0.3 %; EOSINOPHILS # (AUTO) 0.2 10^3/uL (0.0-0.7); EOSINOPHILS % (AUTO) 2.7 %; HCT - HEMATOCRIT 40.7 % (37.0-47.0); HGB - HEMOGLOBIN 12.5 g/dL (12.0-16.0); LYMPHOCYTES # (AUTO) 0.7 10^3/uL (1.5-3.5); MEAN CORPUSCULAR HEMOGLOBIN 29.2 pg (27.0-31.0); MEAN CORPUSCULAR HGB CONC 30.7 g/dL (32.0-36.0); MEAN CORPUSCULAR VOLUME 95.1 fL (81.0-99.0); MEAN PLATELET VOLUME 10.3 fL (7.9-10.8); MONOCYTES # (AUTO) 0.8 10^3/uL (0.0-1.0); MONOCYTES % (AUTO) 10.9 %; NEUTROPHILS # (AUTO) 5.6 10^3/uL (1.5-6.6); NEUTROPHILS % (AUTO) 75.7 %; PLT - PLATELET COUNT 124 10^3/uL (130-450); RED BLOOD COUNT 4.28 10^6/uL (4.20-5.40); RED CELL DISTRIBUTION WIDTH 14.5 % (12.0-15.0); WHITE BLOOD COUNT 7.4 x10^3/uL (4.8-10.8)
[2021-05-26 12:56] LABS: ALBUMIN 3.9 g/dL (3.2-5.5); ALBUMIN/GLOBULIN RATIO 1.1 (1.0-2.2); BILIRUBIN,TOTAL 0.7 mg/dL (0.2-1.0); CALCIUM 9.8 mg/dL (8.5-10.3); CREATININE 0.7 mg/dL (0.4-1.0); POTASSIUM 4.4 mmol/L (3.5-5.0); TOTAL PROTEIN 7.4 g/dL (6.7-8.2)
--- NOTE | 2021-05-26 12:57 | CT Report ---
PROCEDURE: CERVICAL SPINE WO INDICATIONS: head injury neck pain TECHNIQUE: Noncontrast 3 mm thick sections acquired from the skull base to the T4 level. Sagittal and coronal r eformats were then constructed. For radiation dose reduction, the following was used: automated exp osure control, adjustment of mA and/or kV according to patient size. COMPARISON: CT cervical spine 05/24/2021 CT chest 03/19/2021 CT abdomen and pelvis 10/11/2020 FINDINGS: Image quality: Excellent. Bones: There is an approximate 90% compression deformity at T4, unchanged. Visualized superior ribs a re intact. Appearance of sclerotic focus at T2 is unchanged. Soft tissues: Prevertebral soft tissues are normal in thickness. No paravertebral hematomas. No ap ical pneumothoraces. Trace right effusion. IMPRESSION: Stable interval exam demonstrating no acute fracture. If clinical concern persists, MRI is recommende d for evaluation of potential occult and/or ligamentous injury. Unchanged sclerotic focus at the level of T2 possibly representing a bone island. However, as prevperu alon noted further evaluation with MRI is recommended if concern for neoplastic process is present. Reviewed by: Ema Farmer MD on 05/26/2021 12:56 PM PST Approved by: Ema Farmer MD on 05/26/2021 12:56 PM PST Station ID: [id number]
--- NOTE | 2021-05-26 12:59 | CT Report ---
PROCEDURE: HEAD WO INDICATIONS: polytruama head and neck TECHNIQUE: Noncontrast 4.5 mm thick angled axial sections acquired from the foramen magnum to the vertex. For r adiation dose reduction, the following was used: automated exposure control, adjustment of mA and/or kV according to patient size. COMPARISON: CT head 05/24/2021. FINDINGS: Image quality: Mild motion artifact is present. The ventricular system and cortical sulci demonstrate atrophy, consistent for patient's stated age. There are areas of hypodensity in the periventricular and subcortical white matter. There is no acut e intra or extra-axial fluid collection. No acute hemorrhage, mass lesion or midline shift. Brainst em is unremarkable. Globes are symmetrical. Sinuses are aerated. Osseous structures are intact. IMPRESSION: 1. No acute intracranial process. Stable interval exam. 2. Moderate atrophy and chronic microvascular ischemic changes. Reviewed by: Ema Farmer MD on 05/26/2021 12:57 PM PST Approved by: Ema Farmer MD on 05/26/2021 12:57 PM PST Station ID: [id number]
[2021-05-26 13:10] LABS: BILIRUBIN,URINE NEGATIVE (NEGATIVE); GLUCOSE, URINE (UA) NEGATIVE (NEGATIVE); KETONES,URINE (UA) 15 mg/dL (NEGATIVE); LEUKOCYTE ESTERASE, URINE NEGATIVE (NEGATIVE); NITRITE,URINE NEGATIVE (NEGATIVE); OCCULT BLOOD,URINE TRACE-INTA (NEGATIVE); PROTEIN,URINE NEGATIVE (NEGATIVE); UROBILINOGEN,URINE 0.2 (NORMAL) E.U./dL (NORMAL)
[2021-05-26 13:14] LABS: CLARITY,URINE CLEAR (CLEAR)
--- NOTE | 2021-05-26 13:28 | XRAY Report ---
PROCEDURE: Chest 1 View X-Ray INDICATIONS: chest pain TECHNIQUE: One view of the chest was acquired. COMPARISON: CT chest 05/24/2021 FINDINGS: Surgical changes and devices: None. Lungs and pleura: No pleural effusions or pneumothorax. Lungs are clear. Mediastinum: Mediastinal contours appear normal. Heart size is normal. Bones and chest wall: No suspicious bony lesions. Overlying soft tissues appear unremarkable. Prev iously identified left eighth rib fracture is not as well seen on current exam as on prior chest CT. IMPRESSION: No consolidations or effusions. Reviewed by: Ema Farmer MD on 05/26/2021 1:27 PM PST Approved by: Ema Farmer MD on 05/26/2021 1:27 PM PST Station ID: [id number]
--- NOTE | 2021-05-26 13:45 | ED Physician Documentation ---
PD HPI Fall - Stated complaint Stated Complaint: GLF - Chief complaint Chief Complaint: Trauma Ch/Bk - History obtained from History obtained from: Patient - History of Present Illness Mechanism of injury: Lost balance Fall distance: Standing position Where injury occurred: Home Timing - onset: Today Injury(ies) location: Head, Neck, Back Quality of pain: Pain Associated symptoms: Amnesia. No: LOC, AMS Symptoms improve with: Rest Worsens with: Movement, Palpation Contributing factors: Anticoagulated Similar symptoms before: Diagnosis (chest wall contusion with broken rib) Recently seen: Emergency Dept - Additional information Additional information: Turned around in her room and fell against a chair injuring her right lower back. Hit the back of her head and has neck pain as well. Is on Eliquis. This is the second fall in 2 days. She was evaluated here 2 days ago with rib fracture on the left. Review of Systems Constitutional: denies: Fever Eyes: denies: Decreased vision Ears: denies: Ear pain Nose: denies: Congestion Throat: denies: Sore throat Cardiac: denies: Chest pain / pressure Respiratory: denies: Dyspnea, Cough GI: denies: Abdominal Pain, Nausea, Vomiting, Diarrhea : denies: Dysuria, Frequency Skin: denies: Rash Musculoskeletal: reports: Neck pain, Back pain. denies: Extremity pain Neurologic: denies: Generalized weakness, Focal weakness, Numbness PD PAST MEDICAL HISTORY - Past Medical History Cardiovascular: Hypertension, High cholesterol, Atrial fibrillation Respiratory: Asthma Endocrine/Autoimmune: None GI: Ulcers : Incontinence HEENT: Chronic vision loss, Chronic hearing loss Psych: Depression, Bipolar disorder, Panic attacks, Post traumatic stress disorder Musculoskeletal: Osteoarthritis, Fibromyalgia, Chronic back pain Derm: None - Past Surgical History Past Surgical History: Yes General: Colonoscopy, Other Ortho: Arthroscopic surgery, Other HEENT: Tonsil/Adenoidectomy - Present Medications Home Medications: Ambulatory Orders Medication Instructions Recorded Confirmed Atorvastatin Calcium 40 mg PO DAILY 02/05/21 02/12/21 Jeremy Smith [Domingo Smith] 375 mg PO TID 02/05/21 02/12/21 Hydrocodone/Acetaminophen 1 tab PO BID 02/05/21 02/12/21 [Hydrocodone-Acetamin 10-325 mg] Prazosin HCl [Minipress] 2 - 4 mg PO QPM 02/05/21 02/12/21 Rivaroxaban [Xarelto] 20 mg PO QDDINNER 02/05/21 02/12/21 Temazepam [Restoril] 30 mg PO QPM PRN 02/05/21 02/12/21 [id number] CD [Cardizem Cd] 240 mg PO DAILY 02/05/21 02/12/21 Budesonide/Formoterol Fumarate 2 puffs INH BID 02/12/21 02/12/21 [Symbicort 160-4.5 Mcg Inhaler] Gabapentin [Neurontin] 600 mg PO TID 02/12/21 02/12/21 Mirtazapine 45 mg PO QPM 02/12/21 02/12/21 Ondansetron Odt [Zofran Odt] 4 mg TL Q6H PRN #10 tablet 02/13/21 oxyCODONE [Roxicodone] 5 mg PO Q6H PRN #20 tablet 02/13/21 HYDROcod/ACETAM 5/325 [[facility] 5/325] 1 - 2 ea PO Q6H PRN #14 tablet 05/24/21 - Allergies Allergies/Adverse Reactions: Allergies Allergy/AdvReac Type Severity Reaction Status Date / Time Tetracyclines Allergy Intermediate Rash Verified 05/26/21 12:00 ciprofloxacin Allergy Nausea Verified 05/26/21 12:00 amoxicillin trihydrate * AdvReac Intermediate Nausea Verified 05/26/21 12:00 [From Augmentin] Penicillins AdvReac Nausea Verified 05/26/21 12:00 - Social History Does the pt smoke?: No Smoking Status: Never smoker Does the pt drink ETOH?: No Does the pt have substance abuse?: No - POLST Patient has POLST: No PD ED PE NORMAL - Vitals Vital signs reviewed: Yes (hypertensive ) - General General: No acute distress, Well developed/nourished, Other (alert and interactive with slight speech latency and delay in execution of motor commands. ) - HEENT HEENT: PERRL, EOMI, Other (occipital tenderness) - Neck Neck: Supple, no meningeal sign, No bony TTP, Other (bony midline tenderness to mid C-spine ) - Cardiac Cardiac: RRR, No murmur - Respiratory Respiratory: No respiratory distress, Clear bilaterally, Other (point tenderness to the posterior ribs on the right side inferior. ) - Abdomen Abdomen: Soft, Non tender - Back Back: No spinal TTP, Other (right CVA tenderness ) - Derm Derm: Normal color, Warm and dry, No rash - Extremities Extremities: No deformity, No edema - Neuro Neuro: Alert and oriented X 3, packaging tech 2-12 intact, No motor deficit, No sensory deficit, Normal speech Eye Opening: Spontaneous Motor: Obeys Commands Verbal: Oriented GCS Score: 15 - Psych Psych: Normal mood, Normal affect Results - Vitals Vitals: Vital Signs - 24 hr 05/26/21 05/26/21 05/26/21 12:00 12:04 13:06 Temperature 36.8 C 37 C Heart Rate 96 95 92 Respiratory 20 24 16 Rate Blood Pressure 156/89 H 131/82 H 190/71 H O2 Saturation 95 94 94 05/26/21 15:00 Temperature Heart Rate 79 Respiratory 15 Rate Blood Pressure 153/74 H O2 Saturation 95 Oxygen O2 Source [] Room air O2 Source Room air - Labs Labs: Laboratory Tests 05/26/21 05/26/21 05/26/21 12:38 12:38 12:38 WBC 7.4 RBC 4.28 Hgb 12.5 Hct 40.7 MCV 95.1 MCH 29.2 MCHC 30.7 L RDW 14.5 Plt Count 124 L MPV 10.3 Neut # (Auto) 5.6 Lymph # (Auto) 0.7 L [place] # (Auto) 0.8 Eos # (Auto) 0.2 Baso # (Auto) 0.0 Absolute Nucleated RBC 0.00 Nucleated RBC % 0.0 Sodium 141 Potassium 4.4 Chloride 102 Carbon Dioxide 28 Anion Gap 11.0 BUN 21 H Creatinine 0.7 Estimated GFR (MDRD) 81 L Glucose 104 H Lactic Acid 1.8 Calcium 9.8 Total Bilirubin 0.7 AST 20 ALT 13 Alkaline Phosphatase 43 Total Protein 7.4 Albumin 3.9 Globulin 3.5 Albumin/Globulin Ratio 1.1 Lipase 21 L Urine Color Urine Clarity Urine pH Ur Specific [place] Urine Protein Urine Glucose (UA) Urine Ketones Urine Occult Blood Urine Nitrite Urine Bilirubin Urine Urobilinogen Ur Leukocyte Esterase Ur Microscopic Review Urine Culture Comments 05/26/21 13:00 WBC RBC Hgb Hct MCV MCH MCHC RDW Plt Count MPV Neut # (Auto) Lymph # (Auto) [place] # (Auto) Eos # (Auto) Baso # (Auto) Absolute Nucleated RBC Nucleated RBC % Sodium Potassium Chloride Carbon Dioxide Anion Gap BUN Creatinine Estimated GFR (MDRD) Glucose Lactic Acid Calcium Total Bilirubin AST ALT Alkaline Phosphatase Total Protein Albumin Globulin Albumin/Globulin Ratio Lipase Urine Color YELLOW Urine Clarity CLEAR Urine pH 6.0 Ur Specific [place] 1.025 Urine Protein NEGATIVE Urine Glucose (UA) NEGATIVE Urine Ketones 15 H Urine Occult Blood TRACE-INTA Urine Nitrite NEGATIVE Urine Bilirubin NEGATIVE Urine Urobilinogen 0.2 (NORMAL) Ur Leukocyte Esterase NEGATIVE Ur Microscopic Review NOT INDICATED Urine Culture Comments NOT INDICATED - Rads (name of study) CT cervical spine Radiology: Prelim report reviewed (Impression: Stable interval exam demonstrating no acute fracture. If clinical concern persist, MRI is recommended for evaluation of potential occult and/or ligamentous injury. Unchanged sclerotic focus at the T2 possibly representing a bone island.), EMP read indepedently, See rad report CT head Radiology: Prelim report reviewed (Impression: 1. No acute intracranial process. Stable interval exam. Moderate atrophy and chronic microvascular ischemic changes.), EMP read indepedently, See rad report Chest Radiology: Prelim report reviewed, EMP read indepedently, See rad report ribs w PA chest Radiology: Prelim report reviewed (Impression: A subacute appearing rib fracture can be seen involving the posterior lateral 10th rib. No pneumothorax detected. If there is a strong clinical concern for a posttraumatic abnormality of his not seen on this plain film study, then please consider dedicated chest CT with IV contrast for), EMP read indepedently, See rad report PD MEDICAL DECISION MAKING - ED course Complexity details: reviewed old records, reviewed results, re-evaluated patient, considered differential, d/w patient ED course: 75 y/o female with another fall in her home is on [employer] and she has hit her head and her back on the right lower side. Imaging of the head and neck are repeated without new findings. There is no abnormality to a single view chest. She complains of the pain in the right lower back and she is administered IV tordal 30mg with improvement. A rib series is ordered. This shows a single rib fracture on the right. She now has bilateral rib fractures and repeated falls. On [email or web address]. I was able to speak to Carrie Mercedes her DPOA [phone] who is concerned about her turn to decreased activity as this has happened before with the patient and she required in patient psych treatment. I have consulted Dr. Vaughn our pay station attendant surgeon who recommends admitting to medicine with surgical consult. The medicine team prefers surgery as primary with medical consult and they are willing to do the disposition. Departure - Departure Disposition: [facility] DC/Xfer Clinical Impression: Depression with anxiety, Impaired home maintenance management Rib fractures Qualifiers: Encounter type: initial encounter Fracture type: closed Laterality: bilateral Qualified Code(s): S22.43XA - Multiple fractures of ribs, bilateral, initial encounter for closed fracture
[2021-05-26] MEDS ORDERED: KETOROLAC 30 MG/ML VIAL IVP STA (13:57)
[2021-05-26] MEDS ORDERED: KETOROLAC 60 MG/2 ML VIAL IM STA (14:06)
--- NOTE | 2021-05-26 15:28 | XRAY Report ---
PROCEDURE: Ribs w/PA Chest RT INDICATIONS: fall right lower posterior rib pain TECHNIQUE: 3 views of the right ribs were acquired, along with a single view chest. COMPARISON: Correlation is made with the accompanying chest radiograph, 05/26/2021.. Correlation is al so made with prior chest CT, 03/19/2021. FINDINGS: Surgical changes and devices: Lower thoracic spine vertebroplasty cement is seen. Cholecystectomy cli ps are seen. Bones and chest wall: On one image, there is a subacute appearing right posterior lateral 10th rib fr acture. No acute appearing rib fractures are detected. No suspicious bony lesions. Age-appropriate de generative changes are seen. Overlying soft tissues appear unremarkable. Lungs and pleura: No pleural effusions or pneumothorax. Lungs appear clear. Mediastinum: Mediastinal contours appear normal. Heart size is normal. IMPRESSION: A subacute appearing rib fracture can be seen involving the posterolateral 10th rib. No pneumothorax is detected. If there is strong clinical concern for a post traumatic abnormality that is not seen on this plain f ilm study, then please consider a dedicated chest CT with IV contrast for further evaluation. Incidental note is made of: Vertebroplasty cement Cholecystectomy Reviewed by: Chinmay Lopez MD on 05/26/2021 2:26 PM [place] Approved by: Chinmay Lopez MD on 05/26/2021 2:26 PM [facility] Station ID: [id number]
[2021-05-26] MEDS ORDERED: SODIUM CHLORIDE 0.9% 1,000 ML IV STA (15:32)
--- NOTE | 2021-05-26 17:23 | CONSULTATION NOTE ---
Referring Provider Name of Referring Provider:: Axel Vaughn MD Consult Date: 05/26/21 Chief Complaint - Chief Complaint Chief Complaint: atrial fibrillation and recurrent falls History of Present Illness - Admitted From Admitted From:: Home - History Obtained From Records Reviewed: [facility] History obtained from: Patient and [employer] - History of Present Illness HPI Comment/Other: 75 year old female on Eliquis with recent visit to the ED yesterday for a GLF returns today for another GLF. No loss of consciousness either fall. She was found to have a left rib facture and sent home yesterday. Did not lose consciousness but reports her legs "fell out from under me". Today she got out of bed and tripped over a shower chair that was next to it, hitting her head and also injuring her right lower back. Head and cervical spine CTs were obtained yesterday and today, no fractures noted with exception of bilateral rib fractures. History was difficult to elicit as she was concerned about her cat being alone and possibly outside at home. She is complaining of head and back pain, worse with movement and repositioning. Nothing has made it better. Does not radiate. On chart review she has a history of DVT in July 2019 for which she was started on Xarelto (see General History by Diana Blakely 10/11/20). She also indicates she has a diagnosis of atrial fibrillation, but I am unable to find in the records when this was diagnosed. She denies feeling dizzy or light-headed prior to both of her falls at home. The first fall occurred due to weakness, per Pt, and her "legs gave out". Today's fall is reportedly mechanical after she tripped over the chair. She is denying current dizziness, light-headedness, chest pain, palpitations, or recent fevers or chills. Of note, Pt reports that since a prolonged hospitalization in 2019 she has progressively gotten weaker and is having difficulty taking care of herself at home. She was supposed to start physical therapy "but my caregiver keeps getting sick and the PT keeps getting cancelled and it just never gets done". The Pt is being admitted to the med-surg floor under the care of the General Surgery team given her rib fractures. The Hospitalist Medicine team has been consulted to help manage her medical comorbidities given her hx of atrial fibrillation and recent recurrent falls. History - Past Medical History Cardiovascular: reports: Hypertension, High cholesterol, Atrial fibrillation Respiratory: reports: Asthma Endocrine/Autoimmune: reports: None GI: reports: Ulcers : reports: Incontinence HEENT: reports: Chronic vision loss, Chronic hearing loss Psych: reports: Depression, Bipolar disorder, Panic attacks, Post traumatic stress disorder Musculoskeletal: reports: Osteoarthritis, Fibromyalgia, Chronic back pain Derm: reports: None MRSA Hx?: No - Past Surgical History General: reports: Colonoscopy, Other Ortho: reports: Arthroscopic surgery, Other HEENT: reports: Tonsil/Adenoidectomy - Family & Social History Family History Comment/Other: pt did not answer any questions: "they're all gone"; does not have children Living arrangement: At home Living Situation: Alone, Other (Lives alone, caregiver checks in) Social History Notes: Pt lives alone in an apartment with her cat. Reports she has a caregiver for a few hours a day. Denies smoking or use of tobacco products. Also denies use of alcohol, marijuana, cocaine, heroin and meth. - Substance History Use: Uses substance without health or social issues: NONE Abuse: Recurrent use of substance despite neg consequences: NONE Dependence: Experiences withdrawal or developed tolerances: NONE - POLST Patient has POLST: No Meds/Allgy - Home Medications Home Medications: Ambulatory Orders Medication Instructions Recorded Confirmed Atorvastatin Calcium 40 mg PO DAILY 02/05/21 02/12/21 Jeremy Smith [Domingo Smith] 375 mg PO TID 02/05/21 02/12/21 Hydrocodone/Acetaminophen 1 tab PO BID 02/05/21 02/12/21 [Hydrocodone-Acetamin 10-325 mg] Prazosin HCl [Minipress] 2 - 4 mg PO QPM 02/05/21 02/12/21 Rivaroxaban [Xarelto] 20 mg PO QDDINNER 02/05/21 02/12/21 Temazepam [Restoril] 30 mg PO QPM PRN 02/05/21 02/12/21 diltiaZEM CD [Cardizem Cd] 240 mg PO DAILY 02/05/21 02/12/21 Budesonide/Formoterol Fumarate 2 puffs INH BID 02/12/21 02/12/21 [Symbicort 160-4.5 Mcg Inhaler] Gabapentin [Neurontin] 600 mg PO TID 02/12/21 02/12/21 Mirtazapine 45 mg PO QPM 02/12/21 02/12/21 Ondansetron Odt [Zofran Odt] 4 mg TL Q6H PRN #10 tablet 02/13/21 oxyCODONE [Roxicodone] 5 mg PO Q6H PRN #20 tablet 02/13/21 HYDROcod/ACETAM 5/325 [[place] 5/325] 1 - 2 ea PO Q6H PRN #14 tablet 05/24/21 - Allergies Allergies/Adverse Reactions: Allergies Allergy/AdvReac Type Severity Reaction Status Date / Time Tetracyclines Allergy Intermediate Rash Verified 05/26/21 12:00 ciprofloxacin Allergy Nausea Verified 05/26/21 12:00 amoxicillin trihydrate * AdvReac Intermediate Nausea Verified 05/26/21 12:00 [From Augmentin] Penicillins AdvReac Nausea Verified 05/26/21 12:00 Review of Systems - Constitutional Constitutional: reports: Fatigue, Weakness. denies: Fever, Chills - Eyes Eyes: reports: Vision loss. denies: Pain, Irritation - Ears, Nose & Throat Ears, Nose & Throat: reports: Hearing loss. denies: Ear pain - Cardiovascular Cariovascular: reports: Irregular heart rate. denies: Palpitations, Chest pain, Lightheadedness, Syncope - Respiratory Respiratory: denies: Cough, Sputum production - Gastrointestinal Gastrointestinal: denies: Abdominal pain, Abdominal distention, Constipation, Diarrhea - Genitourinary Genitourinary: reports: Incontinence. denies: Dysuria, Frequency - Musculoskeletal Musculoskeletal: reports: Muscle pain, Back pain, Muscle weakness, Joint pain - Integumentary Integumentary: denies: Rash, Pruritis - Neurological Neurological: reports: General weakness. denies: Headache, Dizziness - Psychiatric Psychiatric: reports: Depression, Anxiety - Endocrine Endocrine: denies: Polyuria, Polydypsia, Polyphagia - Hematologic/Lymphatic Hematologic/Lymphatic: denies: Anemia, Bruising - All Other Systems All Other Systems: reports: Reviewed and negative Exam - Vital Signs Reviewed Vital Signs: Yes Vital Signs: Vital Signs x48h Temp Pulse Resp BP Pulse Ox 05/26/21 15:00 79 15 153/74 H 95 05/26/21 13:06 37 C 92 16 190/71 H 94 05/26/21 12:04 95 24 131/82 H 94 05/26/21 12:00 36.8 C 96 20 156/89 H 95 - Physical Exam General Appearance: positive: Alert, Mild distress Eyes Bilateral: positive: PERRL, No scleral icterus ENT: positive: ENT inspection nml, Dry mucous membranes Neck: positive: Nml inspection Respiratory: positive: Chest non-tender, No respiratory distress, Breath sounds nml Cardiovascular: positive: Regular rate & rhythm Peripheral Pulses: positive: 2+ Abdomen: positive: Non-tender, No organomegaly, Nml bowel sounds, No distention Skin: positive: Pallor Extremities: positive: No pedal edema, Other (muscle wasting in arms) Neurologic/Psychiatric: positive: Oriented x3, CN's nml (2-12) Conclusion/Plan - Problem List (1) Atrial fibrillation Conclusion/Plan: Unclear duration. She reports she has been diagnosed with atrial fibrillation in the past. On ausculation her rhythm was regular. She denies feeling dizzy or light-headed and has not complained of chest pain or palpitations. Will obtain an EKG to verify current rhythm. She has been taking Xarelto at home but now with her recent history of falls and hitting her head will stop this and start her on daily baby aspirin. -Telemetry -Orthostatic BP Q shift -EKG on admit -Discontinue Xarelto -Baby Aspirin daily -ECHO ordered for Friday Qualifiers: Atrial fibrillation type: unspecified Qualified Code(s): I48.91 - Unspecified atrial fibrillation (2) Recurrent falls Conclusion/Plan: Pt fell yesterday and today, sustaining bilateral rib fractures. Head and cervical spine CTs both days were negative for fractures other than the known ribs. She is having back pain related to hitting her back against her bed today. Per her report it sounds as if the falls may be more mechanical in nature due to her progressive weakness and deconditioning after a prolonged hospitalization a year ago from which she has not regained her strength. Yesterday she reports her legs "gave out" and today she tripped over a shower chair. Dr. Vaughn has ordered a PT consult for evaluation. -Fall risk precautions -Agree with PT evaluation -Telemetry (3) Rib fractures Conclusion/Plan: Admitted with single rib fractures on the left and right side. Will encourage use of IS to decrease risk for atelectasis and pneumonia related to shallow breathing 2/2 rib fracture pain. -PRN pain meds as needed -IS x10 every hour while awake Qualifiers: Encounter type: initial encounter Fracture type: closed Laterality: bilateral Qualified Code(s): S22.43XA - Multiple fractures of ribs, bilateral, initial encounter for closed fracture (4) Chronic back pain Conclusion/Plan: Stable. Chronic. Resume home meds when able. Qualifiers: Back pain location: back pain in unspecified location Back pain laterality: unspecified Qualified Code(s): M54.9 - Dorsalgia, unspecified; G89.29 - Other chronic pain (5) Fibromyalgia Conclusion/Plan: Stable, chronic. Resume home meds when able. (6) Depression Conclusion/Plan: Stable. Reports she has "severe" depression and "I have a really good psychiatrist". Resume home meds when able. Will continue to monitor while inpatient. Currently she is very concerned about her cat being home and possibly outside alone. Social Work has been consulted by Dr. Vaughn and the ED to assist. Qualifiers: Depression Type: major depressive disorder Major depression recurrence: unspecified whether recurrent Active/Remission status: remission status unspecified Qualified Code(s): F32.9 - Major depressive disorder, single episode, unspecified (7) Asthma Conclusion/Plan: Pt reports she has mild asthma and denies shortness of breath currently. Will continue to monitor for now. Qualifiers: Asthma severity: mild Asthma complication type: with acute exacerbation (8) Hypertension Conclusion/Plan: Stable. Has been hypertensive in the ED, with systolics 130s-150s with one episode of 190/71. Likely elevated due to combination of medical history and current pain. Resume home meds when able and continue with PRN pain management. Will plan for telemetry and ECHO for cardiac assessment. Qualifiers: Hypertension type: primary hypertension Qualified Code(s): I10 - Essential (primary) hypertension (9) High cholesterol Conclusion/Plan: Per pt history. Resume home meds when able. - Lab Results Lab results reviewed: Yes Fish Bones: 05/26/21 12:38 05/26/21 12:38 - Diagnostic Imaging Results Diagnostic Imaging Results: positive: Final report reviewed Diagnostic Imaging Results Comments: Degenerative brain changes and single bilateral rib fractures - EKG Results EKG Interpreted Independently: Yes EKG Findings: Sinus rhythm
[2021-05-26] MEDS ORDERED: ONDANSETRON 4 MG/2 ML VIAL IVP PRN (17:35)
[2021-05-26] MEDS ORDERED: HYDROmorphone 0.5 MG/0.5 ML SYRINGE IVP PRN (17:35)
[2021-05-26] MEDS ORDERED: SODIUM CHLORIDE FLUSH 0.9% 10 ML SYRINGE IVP PRN (17:35)
[2021-05-26] MEDS ORDERED: ONDANSETRON ODT 4 MG TABLET TL PRN (17:35)
[2021-05-26 17:46] LABS: CORONAVIRUS 229E-RESP PCR NOT DETECTED; CORONAVIRUS HKU1-RESP PCR NOT DETECTED; CORONAVIRUS NL63-RESP PCR NOT DETECTED; CORONAVIRUS OC43-RESP PCR NOT DETECTED
[2021-05-26 17:47] LABS: B. PARAPERTUSSIS- RESP PCR PAN NOT DETECTED; B. PERTUSSIS- RESP PCR PANEL NOT DETECTED; C. PNEUMONIAE- RESP PCR PANEL NOT DETECTED; HUMAN METAPNEUMOVIRUS NOT DETECTED; INFLUENZA A- RESP PCR PANEL NOT DETECTED; INFLUENZA B - RESP PCR PANEL NOT DETECTED; M. PNEUMONIAE- RESP PCR PANEL NOT DETECTED; PARAINFLUENZA VIRUS 1 NOT DETECTED; PARAINFLUENZA VIRUS 2 NOT DETECTED; PARAINFLUENZA VIRUS 3 NOT DETECTED; PARAINFLUENZA VIRUS 4 NOT DETECTED; RHINOVIRUS/ENTEROVIRUS NOT DETECTED; RSV- RESP PCR PANEL NOT DETECTED; SARS-CoV-2 -RESP PCR PANEL NOT DETECTED
[2021-05-26] MEDS ORDERED: LORazepam 0.5 MG TABLET PO PRN (17:51)
[2021-05-26] MEDS ORDERED: ALBUTEROL 2 MG/5 ML PO PRN (17:55)
[2021-05-26] MEDS ORDERED: D5.45NS W/20 MEQ KCL 1,000 ML IV SCH (18:00)
--- NOTE | 2021-05-26 18:07 | HISTORY & PHYSICAL EXAMINATION ---
Chief Complaint - Chief Complaint Chief Complaint: Weak and falling at home History of Present Illness - Admitted From Admitted From:: ed - History Obtained From Records Reviewed: yes History obtained from: pt Exam Limitations: none - History of Present Illness HPI Comment/Other: She has history of severe muscle deconditioning. She lives alone. Has limited support. Denies having any family available. She has fallen twice in the last few days and is seen and evaluated in the ED. She currently is not safe at home or capable of taking care of her self. She has chronic pain and when first seen in the ED her pain was poorly controlled. She has had a thorough work up. single rib fracture right and left side. degenerative brain changes work up otherwise unremarkable History - Past Medical History Cardiovascular: reports: Hypertension, High cholesterol, Atrial fibrillation Respiratory: reports: Asthma Endocrine/Autoimmune: reports: None GI: reports: Ulcers : reports: Incontinence HEENT: reports: Chronic vision loss, Chronic hearing loss Psych: reports: Depression, Bipolar disorder, Panic attacks, Post traumatic stress disorder Musculoskeletal: reports: Osteoarthritis, Fibromyalgia, Chronic back pain Derm: reports: None MRSA Hx?: No - Past Surgical History General: reports: Colonoscopy, Other Ortho: reports: Arthroscopic surgery, Other HEENT: reports: Tonsil/Adenoidectomy - Family & Social History Family History Comment/Other: pt did not answer any questions: "they're all gone"; does not have children Living arrangement: At home Living Situation: Alone, Other (Lives alone, caregiver checks in) Social History Notes: Pt lives alone in an apartment with her cat. Reports she has a caregiver for a few hours a day. Denies smoking or use of tobacco products. Also denies use of alcohol, marijuana, cocaine, heroin and meth. - Substance History Use: Uses substance without health or social issues: NONE Abuse: Recurrent use of substance despite neg consequences: NONE Dependence: Experiences withdrawal or developed tolerances: NONE - POLST Patient has POLST: No Meds/Allgy - Home Medications Home Medications: Ambulatory Orders Medication Instructions Recorded Confirmed Atorvastatin Calcium 40 mg PO DAILY 02/05/21 02/12/21 Divalpromiller Smith [Domingo Smith] 375 mg PO TID 02/05/21 02/12/21 Hydrocodone/Acetaminophen 1 tab PO BID 02/05/21 02/12/21 [Hydrocodone-Acetamin 10-325 mg] Prazosin HCl [Minipress] 2 - 4 mg PO QPM 02/05/21 02/12/21 Rivaroxaban [Xarelto] 20 mg PO QDDINNER 02/05/21 02/12/21 Temazepam [Restoril] 30 mg PO QPM PRN 02/05/21 02/12/21 diltiaZEM CD [Cardizem Cd] 240 mg PO DAILY 02/05/21 02/12/21 Budesonide/Formoterol Fumarate 2 puffs INH BID 02/12/21 02/12/21 [Symbicort 160-4.5 Mcg Inhaler] Gabapentin [Neurontin] 600 mg PO TID 02/12/21 02/12/21 Mirtazapine 45 mg PO QPM 02/12/21 02/12/21 Ondansetron Odt [Zofran Odt] 4 mg TL Q6H PRN #10 tablet 02/13/21 oxyCODONE [Roxicodone] 5 mg PO Q6H PRN #20 tablet 02/13/21 HYDROcod/ACETAM 5/325 [[place] 5/325] 1 - 2 ea PO Q6H PRN #14 tablet 05/24/21 - Allergies Allergies/Adverse Reactions: Allergies Allergy/AdvReac Type Severity Reaction Status Date / Time Tetracyclines Allergy Intermediate Rash Verified 05/26/21 12:00 ciprofloxacin Allergy Nausea Verified 05/26/21 12:00 amoxicillin trihydrate * AdvReac Intermediate Nausea Verified 05/26/21 12:00 [From Augmentin] Penicillins AdvReac Nausea Verified 05/26/21 12:00 Review of Systems - Other Findings Other Findings: 10 pt ros as above otherwise unremarkable Exam - Vital Signs Reviewed Vital Signs: Yes Vital Signs: Vital Signs x48h Temp Pulse Resp BP Pulse Ox 05/26/21 17:24 36.8 C 82 12 152/77 H 94 05/26/21 15:00 79 15 153/74 H 95 05/26/21 13:06 37 C 92 16 190/71 H 94 05/26/21 12:04 95 24 131/82 H 94 05/26/21 12:00 36.8 C 96 20 156/89 H 95 - Physical Exam General Appearance: positive: No acute distress, Alert Eyes Bilateral: positive: PERRL, EOMI, No scleral icterus ENT: positive: No signs of dehydration Neck: positive: No JVD, Trachea midline Respiratory: positive: Chest non-tender, No respiratory distress, Breath sounds nml Cardiovascular: positive: Regular rate & rhythm Abdomen: positive: Non-tender, No distention Back: positive: Other (mild tenderness back and posterior ribs) Extremities: positive: Non-tender Neurologic/Psychiatric: positive: Oriented x3, Other (gcs 15) Conclusion/Plan - Problem List (1) Recurrent falls Conclusion/Plan: she is admitted for recurrent falls and pain management. She lives alone and currently can not care for herself. she denies having any family plan admit pain management and d/c planning pt consult social work consult currently her main concern is her cat is home by itself. she left her phone at home and does not know her neighbors number who may be able to help with her cat - Lab Results Fish Bones: 05/26/21 12:38 05/26/21 12:38 - Diagnostic Imaging Results Diagnostic Imaging Results: positive: Final report reviewed
[2021-05-26] MEDS ORDERED: ATORVASTATIN 40 MG TABLET PO STA (18:31)
[2021-05-26] MEDS: ACETAMINOPHEN 325 MG TABLET PO PRN (21:17)
[2021-05-26] MEDS: GABAPENTIN 300 MG CAPSULE PO SCH (21:17)
[2021-05-26] MEDS: MIRTAZAPINE 15 MG TABLET PO SCH (21:17)
[2021-05-26] MEDS: PRAZOSIN 1 MG CAPSULE PO SCH (21:17)
[2021-05-26] MEDS: DIVALPROEX DR 125 MG TABLET PO SCH (21:18)
[2021-05-26] MEDS: oxyCODONE 5 MG TABLET PO PRN (21:18)
[2021-05-26] MEDS: AMITRIPTYLINE 25 MG TABLET PO SCH (21:18)
[2021-05-26] MEDS: TEMAZEPAM 15 MG CAPSULE PO PRN (22:39)
[2021-05-27] MEDS: DIVALPROEX DR 125 MG TABLET PO SCH ×3 (06:15→20:07)
[2021-05-27] MEDS: GABAPENTIN 300 MG CAPSULE PO SCH ×3 (06:16→20:06)
[2021-05-27] MEDS: oxyCODONE 5 MG TABLET PO PRN ×3 (06:18→16:37)
[2021-05-27] MEDS: SODIUM CHLORIDE FLUSH 0.9% 10 ML SYRINGE IVP SCH ×3 (06:25→16:28)
[2021-05-27 07:32] LABS: BASOPHILS % (AUTO) 0.5 %; EOSINOPHILS # (AUTO) 0.1 10^3/uL (0.0-0.7); EOSINOPHILS % (AUTO) 2.2 %; HCT - HEMATOCRIT 33.5 % (37.0-47.0); HGB - HEMOGLOBIN 10.7 g/dL (12.0-16.0); LYMPHOCYTES # (AUTO) 1.2 10^3/uL (1.5-3.5); LYMPHOCYTES % (AUTO) 31.8 %; MEAN CORPUSCULAR HEMOGLOBIN 30.2 pg (27.0-31.0); MEAN CORPUSCULAR HGB CONC 31.9 g/dL (32.0-36.0); MEAN CORPUSCULAR VOLUME 94.6 fL (81.0-99.0); MEAN PLATELET VOLUME 9.7 fL (7.9-10.8); MONOCYTES # (AUTO) 0.4 10^3/uL (0.0-1.0); MONOCYTES % (AUTO) 10.9 %; NEUTROPHILS % (AUTO) 54.6 %; PLT - PLATELET COUNT 91 10^3/uL (130-450); RED BLOOD COUNT 3.54 10^6/uL (4.20-5.40); RED CELL DISTRIBUTION WIDTH 14.4 % (12.0-15.0); WHITE BLOOD COUNT 3.7 x10^3/uL (4.8-10.8)
[2021-05-27 07:38] LABS: CALCIUM 8.5 mg/dL (8.5-10.3); CREATININE 0.6 mg/dL (0.4-1.0); POTASSIUM 4.1 mmol/L (3.5-5.0)
--- NOTE | 2021-05-27 09:02 | PHARMACY PROGRESS NOTE ---
- Best Possible Medication History Admit Date and Time: 05/26/21 7894 Processed by: Pharmacy Medication History completed: Yes Secondary Source(s): Physician records, Insurance records As the person ultimately responsible for medication therapy, providers are able to order a medication from an existing home medication list in [facility] via the "Reconcile Routine" prior to Confirmation of that medication by support dba. Such practice is discouraged except when the physician, in their clinical judgment, deems that a medical need exists for a medication without regard to previous use.
[2021-05-27] MEDS: ASPIRIN CHEW 81 MG TABLET PO SCH (09:20)
[2021-05-27] MEDS: diltiaZEM CD 120 MG CAPSULE PO SCH (09:20)
[2021-05-27] MEDS: ACETAMINOPHEN 325 MG TABLET PO PRN ×2 (10:53→16:36)
[2021-05-27] MEDS: polyethylene glycoL 3350 17 GM PACKET PO SCH (10:54)
--- NOTE | 2021-05-27 11:59 | PROVIDER PROGRESS NOTE ---
Subjective - Prog Note Date Prog Note Date: 05/27/21 - Subjective Subjective: asleep in chair. appears very comfortable. taking deep breaths Objective - Vital Signs/Intake & Output Vital Signs: Vital Signs x48h Temp Pulse Pulse Resp BP Pulse Ox 05/27/21 09:19 77 128/54 L 05/27/21 07:40 17 94 05/27/21 07:23 36.7 C 74 74 15 138/58 H 93 05/27/21 06:14 36.7 C 78 16 116/59 L 98 Intake & Output: Intake & Output 05/24/21 05/25/21 05/26/21 05/27/21 23:59 23:59 23:59 23:59 Intake Total 1100 536 Balance 1100 536 - Objective General Appearance: positive: Other (asleep in chair. very comfortable appearing) Respiratory: positive: No respiratory distress, Other (taking deep breaths without discomfort) - Lab Results Fish Bones: 05/27/21 07:22 05/27/21 07:22 Other Labs: Lab Results x24hrs 05/27/21 05/27/21 05/26/21 Range/Units 07:22 07:22 16:35 WBC 3.7 L (4.8-10.8) x10^3/uL RBC 3.54 L (4.20-5.40) 10^6/uL Hgb 10.7 L (12.0-16.0) g/dL Hct 33.5 L (37.0-47.0) % MCV 94.6 (81.0-99.0) fL MCH 30.2 (27.0-31.0) pg MCHC 31.9 L (32.0-36.0) g/dL RDW 14.4 (12.0-15.0) % Plt Count 91 L (130-450) 10^3/uL MPV 9.7 (7.9-10.8) fL Neut # (Auto) 2.0 (1.5-6.6) 10^3/uL Lymph # (Auto) 1.2 L (1.5-3.5) 10^3/uL [place] # (Auto) 0.4 (0.0-1.0) 10^3/uL Eos # (Auto) 0.1 (0.0-0.7) 10^3/uL Baso # (Auto) 0.0 (0.0-0.1) 10^3/uL Absolute Nucleated RBC 0.00 x10^3/uL Nucleated RBC % 0.0 /100WBC Sodium 140 (135-145) mmol/L Potassium 4.1 (3.5-5.0) mmol/L Chloride 105 (101-111) mmol/L Carbon Dioxide 29 (21-32) mmol/L Anion Gap 6.0 (6-13) BUN 21 H (6-20) mg/dL Creatinine 0.6 (0.4-1.0) mg/dL Estimated GFR (MDRD) 97 (>89) Glucose 110 H (70-100) mg/dL Lactic Acid (0.5-2.2) mmol/L Calcium 8.5 (8.5-10.3) mg/dL Total Bilirubin (0.2-1.0) mg/dL AST (10-42) IU/L ALT (10-60) IU/L Alkaline Phosphatase (42-121) IU/L Total Protein (6.7-8.2) g/dL Albumin (3.2-5.5) g/dL Globulin (2.1-4.2) g/dL Albumin/Globulin Ratio (1.0-2.2) Lipase (22-51) U/L Urine Color Urine Clarity (CLEAR) Urine pH (5.0-7.5) PH Ur Specific [place] (1.002-1.030) Urine Protein (NEGATIVE) mg/dL Urine Glucose (UA) (NEGATIVE) mg/dL Urine Ketones (NEGATIVE) mg/dL Urine Occult Blood (NEGATIVE) Urine Nitrite (NEGATIVE) Urine Bilirubin (NEGATIVE) Urine Urobilinogen (NORMAL) E.U./dL Ur Leukocyte Esterase (NEGATIVE) Ur Microscopic Review Urine Culture Comments Nasal Adenovirus (PCR) NOT DETECTED Nasal B. parapertussis DNA (PCR) NOT DETECTED Nasal Coronavir 229E PCR NOT DETECTED Nasal Coronavir HKU1 PCR NOT DETECTED Nasal Coronavir NL63 PCR NOT DETECTED Nasal Coronavir OC43 PCR NOT DETECTED Nasal Enterovir/Rhinovir PCR NOT DETECTED Nasal Influenza B PCR NOT DETECTED Nasal Influenza A PCR NOT DETECTED Nasal Parainfluen 1 PCR NOT DETECTED Nasal Parainfluen 2 PCR NOT DETECTED Nasal Parainfluen 3 PCR NOT DETECTED Nasal Parainfluen 4 PCR NOT DETECTED Nasal RSV (PCR) NOT DETECTED Nasal B.pertussis DNA PCR NOT DETECTED Nasal C.pneumoniae (PCR) NOT DETECTED [place] Human Metapneumo PCR NOT DETECTED Nasal M.pneumoniae (PCR) NOT DETECTED Nasal SARS-CoV-2 (PCR) NOT DETECTED 05/26/21 05/26/21 05/26/21 Range/Units 13:00 12:38 12:38 WBC (4.8-10.8) x10^3/uL RBC (4.20-5.40) 10^6/uL Hgb (12.0-16.0) g/dL Hct (37.0-47.0) % MCV (81.0-99.0) fL MCH (27.0-31.0) pg MCHC (32.0-36.0) g/dL RDW (12.0-15.0) % Plt Count (130-450) 10^3/uL MPV (7.9-10.8) fL Neut # (Auto) (1.5-6.6) 10^3/uL Lymph # (Auto) (1.5-3.5) 10^3/uL [place] # (Auto) (0.0-1.0) 10^3/uL Eos # (Auto) (0.0-0.7) 10^3/uL Baso # (Auto) (0.0-0.1) 10^3/uL Absolute Nucleated RBC x10^3/uL Nucleated RBC % /100WBC Sodium 141 (135-145) mmol/L Potassium 4.4 (3.5-5.0) mmol/L Chloride 102 (101-111) mmol/L Carbon Dioxide 28 (21-32) mmol/L Anion Gap 11.0 (6-13) BUN 21 H (6-20) mg/dL Creatinine 0.7 (0.4-1.0) mg/dL Estimated GFR (MDRD) 81 L (>89) Glucose 104 H (70-100) mg/dL Lactic Acid 1.8 (0.5-2.2) mmol/L Calcium 9.8 (8.5-10.3) mg/dL Total Bilirubin 0.7 (0.2-1.0) mg/dL AST 20 (10-42) IU/L ALT 13 (10-60) IU/L Alkaline Phosphatase 43 (42-121) IU/L Total Protein 7.4 (6.7-8.2) g/dL Albumin 3.9 (3.2-5.5) g/dL Globulin 3.5 (2.1-4.2) g/dL Albumin/Globulin Ratio 1.1 (1.0-2.2) Lipase 21 L (22-51) U/L Urine Color YELLOW Urine Clarity CLEAR (CLEAR) Urine pH 6.0 (5.0-7.5) PH Ur Specific [place] 1.025 (1.002-1.030) Urine Protein NEGATIVE (NEGATIVE) mg/dL Urine Glucose (UA) NEGATIVE (NEGATIVE) mg/dL Urine Ketones 15 H (NEGATIVE) mg/dL Urine Occult Blood TRACE-INTA (NEGATIVE) Urine Nitrite NEGATIVE (NEGATIVE) Urine Bilirubin NEGATIVE (NEGATIVE) Urine Urobilinogen 0.2 (NORMAL) (NORMAL) E.U./dL Ur Leukocyte Esterase NEGATIVE (NEGATIVE) Ur Microscopic Review NOT INDICATED Urine Culture Comments NOT INDICATED Nasal Adenovirus (PCR) Nasal B. parapertussis DNA (PCR) Nasal Coronavir 229E PCR Nasal Coronavir HKU1 PCR Nasal Coronavir NL63 PCR Nasal Coronavir OC43 PCR Nasal Enterovir/Rhinovir PCR Nasal Influenza B PCR Nasal Influenza A PCR Nasal Parainfluen 1 PCR Nasal Parainfluen 2 PCR Nasal Parainfluen 3 PCR Nasal Parainfluen 4 PCR Nasal RSV (PCR) Nasal B.pertussis DNA PCR Nasal C.pneumoniae (PCR) [place] Human Metapneumo PCR Nasal M.pneumoniae (PCR) Nasal SARS-CoV-2 (PCR) 05/26/21 Range/Units 12:38 WBC 7.4 (4.8-10.8) x10^3/uL RBC 4.28 (4.20-5.40) 10^6/uL Hgb 12.5 (12.0-16.0) g/dL Hct 40.7 (37.0-47.0) % MCV 95.1 (81.0-99.0) fL MCH 29.2 (27.0-31.0) pg MCHC 30.7 L (32.0-36.0) g/dL RDW 14.5 (12.0-15.0) % Plt Count 124 L (130-450) 10^3/uL MPV 10.3 (7.9-10.8) fL Neut # (Auto) 5.6 (1.5-6.6) 10^3/uL Lymph # (Auto) 0.7 L (1.5-3.5) 10^3/uL [place] # (Auto) 0.8 (0.0-1.0) 10^3/uL Eos # (Auto) 0.2 (0.0-0.7) 10^3/uL Baso # (Auto) 0.0 (0.0-0.1) 10^3/uL Absolute Nucleated RBC 0.00 x10^3/uL Nucleated RBC % 0.0 /100WBC Sodium (135-145) mmol/L Potassium (3.5-5.0) mmol/L Chloride (101-111) mmol/L Carbon Dioxide (21-32) mmol/L Anion Gap (6-13) BUN (6-20) mg/dL Creatinine (0.4-1.0) mg/dL Estimated GFR (MDRD) (>89) Glucose (70-100) mg/dL Lactic Acid (0.5-2.2) mmol/L Calcium (8.5-10.3) mg/dL Total Bilirubin (0.2-1.0) mg/dL AST (10-42) IU/L ALT (10-60) IU/L Alkaline Phosphatase (42-121) IU/L Total Protein (6.7-8.2) g/dL Albumin (3.2-5.5) g/dL Globulin (2.1-4.2) g/dL Albumin/Globulin Ratio (1.0-2.2) Lipase (22-51) U/L Urine Color Urine Clarity (CLEAR) Urine pH (5.0-7.5) PH Ur Specific [place] (1.002-1.030) Urine Protein (NEGATIVE) mg/dL Urine Glucose (UA) (NEGATIVE) mg/dL Urine Ketones (NEGATIVE) mg/dL Urine Occult Blood (NEGATIVE) Urine Nitrite (NEGATIVE) Urine Bilirubin (NEGATIVE) Urine Urobilinogen (NORMAL) E.U./dL Ur Leukocyte Esterase (NEGATIVE) Ur Microscopic Review Urine Culture Comments Nasal Adenovirus (PCR) Nasal B. parapertussis DNA (PCR) Nasal Coronavir 229E PCR Nasal Coronavir HKU1 PCR Nasal Coronavir NL63 PCR Nasal Coronavir OC43 PCR Nasal Enterovir/Rhinovir PCR Nasal Influenza B PCR Nasal Influenza A PCR Nasal Parainfluen 1 PCR Nasal Parainfluen 2 PCR Nasal Parainfluen 3 PCR Nasal Parainfluen 4 PCR Nasal RSV (PCR) Nasal B.pertussis DNA PCR Nasal C.pneumoniae (PCR) [place] Human Metapneumo PCR Nasal M.pneumoniae (PCR) Nasal SARS-CoV-2 (PCR) Assessment/Plan - Problem List (1) Recurrent falls Impression: she lives alone and has little to no support. she has not been able to care for herself safely due to weakness and unsteady gait d/c planning
[2021-05-27] MEDS: D5.45NS W/20 MEQ KCL 1,000 ML IV SCH (14:43)
--- NOTE | 2021-05-27 15:03 | PROVIDER PROGRESS NOTE ---
Subjective - Prog Note Date Prog Note Date: 05/27/21 - Subjective Pt reports feeling: Improved Subjective: Reports she slept well overnight and denies dyspnea or nausea. Continues to complain of back pain and is concerned for her cat. Using the IS at bedside with encouragement. Objective - Vital Signs/Intake & Output Reviewed Vital Signs: Yes Vital Signs: Vital Signs x48h Temp Pulse Pulse Resp BP Pulse Ox 05/27/21 12:22 36.7 C 85 16 123/87 H 94 05/27/21 09:19 77 128/54 L 05/27/21 07:40 17 94 05/27/21 07:23 36.7 C 74 74 15 138/58 H 93 Intake & Output: Intake & Output 05/24/21 05/25/21 05/26/21 05/27/21 23:59 23:59 23:59 23:59 Intake Total 1100 1631 Output Total 0 Balance 1100 1631 - Objective General Appearance: positive: No acute distress, Alert Eyes Bilateral: positive: Normal inspection, PERRL ENT: positive: Dry mucous membranes Respiratory: positive: No respiratory distress, Other (chest tender, diminished lung sounds bilateral bases) Cardiovascular: positive: Regular rate & rhythm, No murmur Peripheral Pulses: 2+ Dorsalis pedis (R), 2+ Dorsalis pedis (L) Abdomen: positive: Non-tender, No organomegaly, Nml bowel sounds, No distention Skin: positive: Color nml Extremities: positive: No pedal edema, Other (Left knee tender, mild muscle wasting bilateral arms) Neurologic/Psychiatric: positive: Oriented x3 - Lab Results Fish Bones: 05/27/21 07:22 05/27/21 07:22 Other Labs: Lab Results x24hrs 05/27/21 05/27/21 05/26/21 Range/Units 07:22 07:22 16:35 WBC 3.7 L (4.8-10.8) x10^3/uL RBC 3.54 L (4.20-5.40) 10^6/uL Hgb 10.7 L (12.0-16.0) g/dL Hct 33.5 L (37.0-47.0) % MCV 94.6 (81.0-99.0) fL MCH 30.2 (27.0-31.0) pg MCHC 31.9 L (32.0-36.0) g/dL RDW 14.4 (12.0-15.0) % Plt Count 91 L (130-450) 10^3/uL MPV 9.7 (7.9-10.8) fL Neut # (Auto) 2.0 (1.5-6.6) 10^3/uL Lymph # (Auto) 1.2 L (1.5-3.5) 10^3/uL [place] # (Auto) 0.4 (0.0-1.0) 10^3/uL Eos # (Auto) 0.1 (0.0-0.7) 10^3/uL Baso # (Auto) 0.0 (0.0-0.1) 10^3/uL Absolute Nucleated RBC 0.00 x10^3/uL Nucleated RBC % 0.0 /100WBC Sodium 140 (135-145) mmol/L Potassium 4.1 (3.5-5.0) mmol/L Chloride 105 (101-111) mmol/L Carbon Dioxide 29 (21-32) mmol/L Anion Gap 6.0 (6-13) BUN 21 H (6-20) mg/dL Creatinine 0.6 (0.4-1.0) mg/dL Estimated GFR (MDRD) 97 (>89) Glucose 110 H (70-100) mg/dL Calcium 8.5 (8.5-10.3) mg/dL Nasal Adenovirus (PCR) NOT DETECTED Nasal B. parapertussis DNA (PCR) NOT DETECTED Nasal Coronavir 229E PCR NOT DETECTED Nasal Coronavir HKU1 PCR NOT DETECTED Nasal Coronavir NL63 PCR NOT DETECTED Nasal Coronavir OC43 PCR NOT DETECTED Nasal Enterovir/Rhinovir PCR NOT DETECTED Nasal Influenza B PCR NOT DETECTED Nasal Influenza A PCR NOT DETECTED Nasal Parainfluen 1 PCR NOT DETECTED Nasal Parainfluen 2 PCR NOT DETECTED Nasal Parainfluen 3 PCR NOT DETECTED Nasal Parainfluen 4 PCR NOT DETECTED Nasal RSV (PCR) NOT DETECTED Nasal B.pertussis DNA PCR NOT DETECTED Nasal C.pneumoniae (PCR) NOT DETECTED [place] Human Metapneumo PCR NOT DETECTED Nasal M.pneumoniae (PCR) NOT DETECTED Nasal SARS-CoV-2 (PCR) NOT DETECTED Sepsis Event Note (H) - Evaluation Current Stage of Sepsis: Ruled out Assessment/Plan - Problem List (1) Atrial fibrillation Impression: Unclear duration. She reported to me yesterday that she had been diagnosed with atrial fibrillation in the past, however today she is adamant that she has never been diagnosed with this. Currently in sinus rhythm and admission EKG showed sinus rhythm. She denies feeling dizzy or light-headed and has not complained of chest pain or palpitations. Heart rate has been 70s-80s. She was taking Xarelto at home but now with her recent history of falls and hitting her head this was stopped and she was started on daily baby aspirin. Nursing attempted overnight to get orthostatics, however she refused to get out of bed. This morning nursing was able to obtain and they are not concerning. Would like at least 1-2 more sets to ensure they remain normal. -Telemetry -Orthostatic BP Q shift -Baby Aspirin daily -ECHO ordered for Friday Qualifiers: Atrial fibrillation type: unspecified Qualified Code(s): I48.91 - Unspecified atrial fibrillation (2) Recurrent falls Impression: Pt fell x2 prior to admission, sustaining bilateral rib fractures. Head and cervical spine CTs both days were negative for fractures other than the known ribs. She is having back pain related to hitting her back against her bed. Per her report it sounds as if the falls may be more mechanical in nature due to her progressive weakness and deconditioning after a prolonged hospitalization a year ago from which she has not regained her strength. PT will be evaluating her today. -Fall risk precautions -Agree with PT evaluation -Telemetry (3) Rib fractures Impression: Admitted with single rib fractures on the left and right side. Will encourage use of IS to decrease risk for atelectasis and pneumonia related to shallow breathing 2/2 rib fracture pain. -PRN pain meds as needed -IS x10 every hour while awake Qualifiers: Encounter type: initial encounter Fracture type: closed Laterality: bilateral Qualified Code(s): S22.43XA - Multiple fractures of ribs, bilateral, initial encounter for closed fracture (4) Chronic back pain Impression: Stable. Chronic. Resume home meds when able. Qualifiers: Back pain location: back pain in unspecified location Back pain laterality: unspecified Qualified Code(s): M54.9 - Dorsalgia, unspecified; G89.29 - Other chronic pain (5) Fibromyalgia Impression: Stable, chronic. Resume home meds when able. (6) Depression Impression: Stable. Reports she has "severe" depression and "I have a really good psychiatrist". Home meds continued. Will continue to monitor while inpatient. Currently she is very concerned about her cat being home and possibly outside alone. Social Work has been working with her DPOA for this. Qualifiers: Depression Type: major depressive disorder Major depression recurrence: unspecified whether recurrent Active/Remission status: remission status unspecified Qualified Code(s): F32.9 - Major depressive disorder, single episode, unspecified (7) Weakness Impression: Pt reports being significantly deconditioned. DPOA is concerned for her ability to care for herself at home. Pt reports she was hospitalized for months approximately one year ago and has not regained her strength. Has been trying to work with outpatient therapy but appointments have been getting cancelled due to weather and her caregiver getting sick. PT will be evaluating today. She believes her weakness is part of why she fell the first time over the weekend, as her legs gave out. -PT evaluation -Appreciate social work assistance with discharge planning given caregiver concerns of Pt's ability to care for herself at home (8) Asthma Impression: Stable. Pt reports she has mild asthma and has not had an attack in "decades"; denies shortness of breath currently. Will continue to monitor for now. Qualifiers: Asthma severity: mild Asthma complication type: with acute exacerbation (9) Hypertension Impression: Stable. was hypertensive in the ED, has now been 120s-130s systolics x 24 hours. Likely was elevated due to combination of medical history and current pain. Home meds continued. Qualifiers: Hypertension type: primary hypertension Qualified Code(s): I10 - Essential (primary) hypertension (10) High cholesterol Impression: Per pt history. Home meds continued. (11) Low urine output Impression: Pt has not had urine output this shift despite receiving IVF at 50ml/hr. Bladder scan this afternoon revealed 298ml and she did not have an urge to urinate. Creatinine is normal and her BUN slightly elevated, she does not appear to have an NANCY. She is likely still dry as she reports she was not eating or drinking much at home due to difficulty getting around her house. Her mucus membranes are dry. She is not short of breath and her heart rate has been normal. Her mucus membranes are dry so will increase her IVF to 75ml/hr and continue to monitor.
[2021-05-27] MEDS ORDERED: RIVAROXABAN 15 MG TABLET PO SCH (17:00)
[2021-05-27] MEDS: FORMOTEROL FUMARATE NEB 20 MCG/2 ML INH SCH (19:08)
[2021-05-27] MEDS: BUDESONIDE 0.5 MG/2 ML NEB INH SCH (19:08)
[2021-05-27] MEDS: AMITRIPTYLINE 25 MG TABLET PO SCH (20:05)
[2021-05-27] MEDS: PRAZOSIN 1 MG CAPSULE PO SCH (20:05)
[2021-05-27] MEDS: TEMAZEPAM 15 MG CAPSULE PO PRN (20:06)
[2021-05-27] MEDS: DOCUSATE SODIUM 250 MG CAPSULE PO SCH (20:06)
[2021-05-27] MEDS: SENNA 8.6 MG TABLET PO SCH (20:06)
[2021-05-27] MEDS: MIRTAZAPINE 15 MG TABLET PO SCH (20:07)
[2021-05-28] MEDS: SODIUM CHLORIDE FLUSH 0.9% 10 ML SYRINGE IVP SCH ×3 (00:56→23:53)
[2021-05-28] MEDS: methocarbamoL 500 MG TABLET PO PRN (01:32)
[2021-05-28] MEDS: oxyCODONE 5 MG TABLET PO PRN ×3 (01:33→18:37)
[2021-05-28] MEDS: D5.45NS W/20 MEQ KCL 1,000 ML IV SCH (04:17)
[2021-05-28] MEDS: GABAPENTIN 300 MG CAPSULE PO SCH ×3 (06:20→22:16)
[2021-05-28] MEDS: DIVALPROEX DR 125 MG TABLET PO SCH ×3 (06:20→22:16)
[2021-05-28 06:38] LABS: BASOPHILS % (AUTO) 0.5 %; EOSINOPHILS # (AUTO) 0.2 10^3/uL (0.0-0.7); HCT - HEMATOCRIT 33.7 % (37.0-47.0); HGB - HEMOGLOBIN 10.7 g/dL (12.0-16.0); LYMPHOCYTES # (AUTO) 1.9 10^3/uL (1.5-3.5); LYMPHOCYTES % (AUTO) 44.5 %; MEAN CORPUSCULAR HEMOGLOBIN 29.7 pg (27.0-31.0); MEAN CORPUSCULAR HGB CONC 31.8 g/dL (32.0-36.0); MEAN CORPUSCULAR VOLUME 93.6 fL (81.0-99.0); MONOCYTES # (AUTO) 0.4 10^3/uL (0.0-1.0); MONOCYTES % (AUTO) 8.6 %; NEUTROPHILS # (AUTO) 1.7 10^3/uL (1.5-6.6); NEUTROPHILS % (AUTO) 41.4 %; PLT - PLATELET COUNT 133 10^3/uL (130-450); RED CELL DISTRIBUTION WIDTH 14.2 % (12.0-15.0); WHITE BLOOD COUNT 4.2 x10^3/uL (4.8-10.8)
[2021-05-28 06:45] LABS: CALCIUM 8.4 mg/dL (8.5-10.3); CREATININE 0.6 mg/dL (0.4-1.0); POTASSIUM 4.6 mmol/L (3.5-5.0)
[2021-05-28] MEDS: FORMOTEROL FUMARATE NEB 20 MCG/2 ML INH SCH ×2 (07:24→19:42)
[2021-05-28] MEDS: BUDESONIDE 0.5 MG/2 ML NEB INH SCH ×2 (07:24→19:42)
--- NOTE | 2021-05-28 09:06 | PROVIDER PROGRESS NOTE ---
Subjective - Prog Note Date Prog Note Date: 05/28/21 - Subjective Subjective: resting soundly after eating 1/2 of her breakfast. taking nice deep breaths. Objective - Vital Signs/Intake & Output Vital Signs: Vital Signs x48h Temp Pulse Pulse Resp BP BP Pulse Ox 05/28/21 08:16 36.8 C 82 18 148/59 H 94 05/28/21 07:27 80 16 05/28/21 06:22 36.8 C 77 18 126/50 L 92 05/28/21 01:12 36.7 C 75 16 110/60 93 Intake & Output: Intake & Output 05/25/21 05/26/21 05/27/21 05/28/21 23:59 23:59 23:59 23:59 Intake Total 1100 2000 1100 Output Total 0 520 Balance 1100 2001 580 - Objective General Appearance: positive: No acute distress, Other (sound asleep. taking deep breaths) Respiratory: positive: No respiratory distress - Lab Results Fish Bones: 05/28/21 06:20 05/28/21 06:20 Other Labs: Lab Results x24hrs 05/28/21 05/28/21 Range/Units 06:20 06:20 WBC 4.2 L (4.8-10.8) x10^3/uL RBC 3.60 L (4.20-5.40) 10^6/uL Hgb 10.7 L (12.0-16.0) g/dL Hct 33.7 L (37.0-47.0) % MCV 93.6 (81.0-99.0) fL MCH 29.7 (27.0-31.0) pg MCHC 31.8 L (32.0-36.0) g/dL RDW 14.2 (12.0-15.0) % Plt Count 133 (130-450) 10^3/uL MPV 10.0 (7.9-10.8) fL Neut # (Auto) 1.7 (1.5-6.6) 10^3/uL Lymph # (Auto) 1.9 (1.5-3.5) 10^3/uL [place] # (Auto) 0.4 (0.0-1.0) 10^3/uL Eos # (Auto) 0.2 (0.0-0.7) 10^3/uL Baso # (Auto) 0.0 (0.0-0.1) 10^3/uL Absolute Nucleated RBC 0.00 x10^3/uL Nucleated RBC % 0.0 /100WBC Sodium 136 (135-145) mmol/L Potassium 4.6 (3.5-5.0) mmol/L Chloride 102 (101-111) mmol/L Carbon Dioxide 28 (21-32) mmol/L Anion Gap 6.0 (6-13) BUN 21 H (6-20) mg/dL Creatinine 0.6 (0.4-1.0) mg/dL Estimated GFR (MDRD) 97 (>89) Glucose 107 H (70-100) mg/dL Calcium 8.4 L (8.5-10.3) mg/dL Sepsis Event Note (H) - Evaluation Current Stage of Sepsis: Ruled out Assessment/Plan - Problem List (1) Recurrent falls Impression: d/c planning.
[2021-05-28] MEDS: diltiaZEM CD 120 MG CAPSULE PO SCH (09:24)
[2021-05-28] MEDS: ACETAMINOPHEN 325 MG TABLET PO PRN ×2 (09:24→18:36)
[2021-05-28] MEDS: polyethylene glycoL 3350 17 GM PACKET PO SCH (09:25)
[2021-05-28] MEDS: DOCUSATE SODIUM 250 MG CAPSULE PO SCH (09:25)
[2021-05-28] MEDS: SENNA 8.6 MG TABLET PO SCH (09:25)
[2021-05-28] MEDS: ASPIRIN CHEW 81 MG TABLET PO SCH (09:25)
--- NOTE | 2021-05-28 16:29 | PROVIDER PROGRESS NOTE ---
Assessment/Plan - Problem List (1) Atrial fibrillation Qualifiers: Atrial fibrillation type: unspecified Qualified Code(s): I48.91 - Unspecified atrial fibrillation Assessment/Plan: On diltiazem 240mg po daily Xarelto discontinued due to frequent falls (2) Recurrent falls Assessment/Plan: Xarelto discontinued Patient advised/ encouraged to use walker for ambulating (3) Rib fractures Qualifiers: Encounter type: initial encounter Fracture type: closed Laterality: bilateral Qualified Code(s): S22.43XA - Multiple fractures of ribs, bilateral, initial encounter for closed fracture Assessment/Plan: 2/2 fall Pain management with oxycodone Encouraged to use incentive spirometer (4) Depression with anxiety Assessment/Plan: On amitryptilline, remeron and ativa (5) Hypertension Qualifiers: Hypertension type: primary hypertension Qualified Code(s): I10 - Essential (primary) hypertension Assessment/Plan: On diltiazem (6) Fibromyalgia Assessment/Plan: On gabapentin and amitryptilline (7) Insomnia Assessment/Plan: On restoril and remeron - Current Meds Current Meds: Current Medications Generic Name Dose Route Start Last Admin Trade Name Freq PRN Reason Stop Dose Admin Acetaminophen 650 mg 05/26/21 17:35 05/28/21 09:24 Acetaminophen 325 Mg Tablet PO 650 mg Q4HR PRN Administration Pain 1 to 4 Amitriptyline HCl 25 mg 05/26/21 21:00 05/27/21 20:05 Amitriptyline 25 Mg Tablet PO Not Given HS GAGAN Aspirin 81 mg 05/27/21 09:00 05/28/21 09:25 Aspirin Chew 81 Mg Tablet PO 81 mg DAILY GAGAN Administration Budesonide 0.5 mg 05/27/21 19:00 05/28/21 07:24 Budesonide 0.5 Mg/2 Ml Neb INH 0.5 mg RTBID GAGAN Administration Diltiazem HCl 240 mg 05/27/21 09:00 05/28/21 09:24 Diltiazem Cd 120 Mg Capsule PO 240 mg DAILY GAGAN Administration Divalproex Sodium 125 mg 05/26/21 22:00 05/28/21 15:[address] 125 Mg Tablet PO Not Given TID GAGAN Docusate Sodium 250 - 500 mg 05/27/21 21:00 05/28/21 09:25 Docusate Sodium 250 Mg Capsule PO 250 mg DAILY GAGAN Administration Formoterol Fumarate 20 mcg 05/27/21 19:00 05/28/21 07:24 Formoterol Fumarate Neb 20 Mcg/2 Ml INH 20 mcg RTBID GAGAN Administration Gabapentin 600 mg 05/26/21 22:00 05/28/21 15:53 Gabapentin 300 Mg Capsule PO Not Given TID GAGAN Hydromorphone HCl 0.5 mg 05/26/21 17:35 05/26/21 19:11 Hydromorphone 0.5 Mg/0.5 Ml Syringe IVP 0.5 mg Q2H PRN Administration Pain 8 to 10 Potassium Chloride/Dextrose/Sod Cl 1,000 mls @ 75 mls/hr 05/27/21 14:40 05/28/21 09:35 D5.45ns W/20 Meq Kcl IV 0 mls/hr .[id number] GAGAN Infusion Methocarbamol 500 mg 05/26/21 17:47 05/28/21 01:32 Methocarbamol 500 Mg Tablet PO 500 mg TID PRN Administration PAIN Mirtazapine 45 mg 05/26/21 21:00 05/27/21 20:07 Mirtazapine 15 Mg Tablet PO 45 mg QPM GAGAN Administration Oxycodone HCl 5 mg 05/26/21 17:35 05/28/21 09:24 Oxycodone 5 Mg Tablet PO 5 mg Q4HR PRN Administration Pain 5 to 7 Polyethylene Glycol 17 gm 05/27/21 11:00 05/28/21 09:25 Polyethylene Glycol 3350 17 Gm Packet PO 17 gm DAILY GAGAN Administration Prazosin HCl 4 mg 05/26/21 21:00 05/27/21 20:05 Prazosin 1 Mg Capsule PO 4 mg QPM GAGAN Administration Senna 8.6 - 17.2 mg 05/27/21 21:00 05/28/21 09:25 Senna 8.6 Mg Tablet PO 8.6 mg DAILY GAGAN Administration Sodium Chloride 10 ml 05/27/21 01:00 05/28/21 15:53 Sodium Chloride Flush 0.9% 10 Ml Syringe IVP Not Given 0100,0900,1700 GAGAN Temazepam 30 mg 05/26/21 21:40 05/27/21 20:06 Temazepam 15 Mg Capsule PO 30 mg QPM PRN Administration Insomnia - Lab Result Fish Bone Diagrams: 05/28/21 06:20 05/28/21 06:20 Subjective - Subjective Patient Reports: Other (Resting in bed at time of exam. Complain of pain in her ribs with movement (11/02). Reports urinary frequency. Denies any other complain s) Objective Vital Signs: Vital Signs - 24 hr 05/27/21 05/27/21 05/28/21 19:08 20:36 01:12 Temperature 36.7 C 36.7 C Heart Rate 78 Heart Rate [ 76 75 Brachial] Respiratory 18 16 16 Rate Blood Pressure 135/54 H 110/60 [Right Brachial artery] Blood Pressure [Right Radial artery] O2 Saturation 95 93 05/28/21 05/28/21 05/28/21 06:22 07:27 08:16 Temperature 36.8 C 36.8 C Heart Rate 80 Heart Rate [ 77 82 Brachial] Respiratory 18 16 18 Rate Blood Pressure 148/59 H [Right Brachial artery] Blood Pressure 126/50 L [Right Radial artery] O2 Saturation 92 94 05/28/21 16:19 Temperature 37.1 C Heart Rate Heart Rate [ 80 Brachial] Respiratory 16 Rate Blood Pressure 138/80 H [Right Brachial artery] Blood Pressure [Right Radial artery] O2 Saturation 92 Oxygen O2 Source [Without Activity] Room air O2 Source Room air I&O (Last 24 Hrs): Intake and Output Totals x24h 05/26/21 05/27/21 05/28/21 23:59 23:59 23:59 Intake Total 1100 2000 1497.5 Output Total 0 645 Balance 1100 2000 852.5 General: Alert, Oriented x3, Moderate distress HEENT: PERRLA, EOMI Neck: Supple, No JVD Neuro: Alert, Oriented Times 3 Cardiovascular: Regular rate Respiratory: Chest non-tender, No respiratory distress, Breath sounds nml Abdomen: Normal bowel sounds, Soft Extremities: No clubbing, No edema Skin: No rashes - Results Results: Laboratory Results WBC 4.2 x10^3/uL (4.8-10.8) L 05/28/21 06:20 RBC 3.60 10^6/uL (4.20-5.40) L 05/28/21 06:20 Hgb 10.7 g/dL (12.0-16.0) L 05/28/21 06:20 Hct 33.7 % (37.0-47.0) L 05/28/21 06:20 MCV 93.6 fL (81.0-99.0) 05/28/21 06:20 MCH 29.7 pg (27.0-31.0) 05/28/21 06:20 MCHC 31.8 g/dL (32.0-36.0) L 05/28/21 06:20 RDW 14.2 % (12.0-15.0) 05/28/21 06:20 Plt Count 133 10^3/uL (130-450) 05/28/21 06:20 MPV 10.0 fL (7.9-10.8) 05/28/21 06:20 Neut # (Auto) 1.7 10^3/uL (1.5-6.6) 05/28/21 06:20 Lymph # (Auto) 1.9 10^3/uL (1.5-3.5) 05/28/21 06:20 Will # (Auto) 0.4 10^3/uL (0.0-1.0) 05/28/21 06:20 Eos # (Auto) 0.2 10^3/uL (0.0-0.7) 05/28/21 06:20 Baso # (Auto) 0.0 10^3/uL (0.0-0.1) 05/28/21 06:20 Absolute Nucleated RBC 0.00 x10^3/uL 05/28/21 06:20 Nucleated RBC % 0.0 /100WBC 05/28/21 06:20 Sodium 136 mmol/L (135-145) 05/28/21 06:20 Potassium 4.6 mmol/L (3.5-5.0) 05/28/21 06:20 Chloride 102 mmol/L (101-111) 05/28/21 06:20 Carbon Dioxide 28 mmol/L (21-32) 05/28/21 06:20 Anion Gap 6.0 (6-13) 05/28/21 06:20 BUN 21 mg/dL (6-20) H 05/28/21 06:20 Creatinine 0.6 mg/dL (0.4-1.0) 05/28/21 06:20 Estimated GFR (MDRD) 97 (>89) 05/28/21 06:20 Glucose 107 mg/dL (70-100) H 05/28/21 06:20 Lactic Acid 1.8 mmol/L (0.5-2.2) 05/26/21 12:38 Calcium 8.4 mg/dL (8.5-10.3) L 05/28/21 06:20 Total Bilirubin 0.7 mg/dL (0.2-1.0) 05/26/21 12:38 AST 20 IU/L (10-42) 05/26/21 12:38 ALT 13 IU/L (10-60) 05/26/21 12:38 Alkaline Phosphatase 43 IU/L (42-121) 05/26/21 12:38 Total Protein 7.4 g/dL (6.7-8.2) 05/26/21 12:38 Albumin 3.9 g/dL (3.2-5.5) 05/26/21 12:38 Globulin 3.5 g/dL (2.1-4.2) 05/26/21 12:38 Albumin/Globulin Ratio 1.1 (1.0-2.2) 05/26/21 12:38 Lipase 21 U/L (22-51) L 05/26/21 12:38 Urine Color YELLOW 05/26/21 13:00 Urine Clarity CLEAR (CLEAR) 05/26/21 13:00 Urine pH 6.0 PH (5.0-7.5) 05/26/21 13:00 Ur Specific [place] 1.025 (1.002-1.030) 05/26/21 13:00 Urine Protein NEGATIVE mg/dL (NEGATIVE) 05/26/21 13:00 Urine Glucose (UA) NEGATIVE mg/dL (NEGATIVE) 05/26/21 13:00 Urine Ketones 15 mg/dL (NEGATIVE) H 05/26/21 13:00 Urine Occult Blood TRACE-INTA (NEGATIVE) 05/26/21 13:00 Urine Nitrite NEGATIVE (NEGATIVE) 05/26/21 13:00 Urine Bilirubin NEGATIVE (NEGATIVE) 05/26/21 13:00 Urine Urobilinogen 0.2 (NORMAL) E.U./dL (NORMAL) 05/26/21 13:00 Ur Leukocyte Esterase NEGATIVE (NEGATIVE) 05/26/21 13:00 Ur Microscopic Review NOT INDICATED 05/26/21 13:00 Urine Culture Comments NOT INDICATED 05/26/21 13:00 Nasal Adenovirus (PCR) NOT DETECTED 05/26/21 16:35 Nasal B. parapertussis DNA (PCR) NOT DETECTED 05/26/21 16:35 Nasal Coronavir 229E PCR NOT DETECTED 05/26/21 16:35 Nasal Coronavir HKU1 PCR NOT DETECTED 05/26/21 16:35 Nasal Coronavir NL63 PCR NOT DETECTED 05/26/21 16:35 Nasal Coronavir OC43 PCR NOT DETECTED 05/26/21 16:35 Nasal Enterovir/Rhinovir PCR NOT DETECTED 05/26/21 16:35 Nasal Influenza B PCR NOT DETECTED 05/26/21 16:35 Nasal Influenza A PCR NOT DETECTED 05/26/21 16:35 Nasal Parainfluen 1 PCR NOT DETECTED 05/26/21 16:35 Nasal Parainfluen 2 PCR NOT DETECTED 05/26/21 16:35 Nasal Parainfluen 3 PCR NOT DETECTED 05/26/21 16:35 Nasal Parainfluen 4 PCR NOT DETECTED 05/26/21 16:35 Nasal RSV (PCR) NOT DETECTED 05/26/21 16:35 Nasal B.pertussis DNA PCR NOT DETECTED 05/26/21 16:35 Nasal C.pneumoniae (PCR) NOT DETECTED 05/26/21 16:35 Mois[place] Human Metapneumo PCR NOT DETECTED 05/26/21 16:35 Nasal M.pneumoniae (PCR) NOT DETECTED 05/26/21 16:35 Nasal SARS-CoV-2 (PCR) NOT DETECTED 05/26/21 16:35 - Procedures Procedures: Procedures EXCISION OF SIGMOID COLON, ENDO (05/16/15) INSPECTION OF LOWER INTESTINAL TRACT, ENDO (02/10/19) RESECTION OF GALLBLADDER, PERCUTANEOUS ENDOSCOPIC APPROACH (02/12/21) Sepsis Event Note (H) - Evaluation Current Stage of Sepsis: Ruled out ABX Reporting Has patient been on IV antibiotics over the past 48 hours?: No
[2021-05-28] MEDS: AMITRIPTYLINE 25 MG TABLET PO SCH (22:13)
[2021-05-28] MEDS: PRAZOSIN 1 MG CAPSULE PO SCH (22:15)
[2021-05-28] MEDS: MIRTAZAPINE 15 MG TABLET PO SCH (22:16)
[2021-05-28] MEDS: TEMAZEPAM 15 MG CAPSULE PO PRN (22:24)
[2021-05-29] MEDS: methocarbamoL 500 MG TABLET PO PRN ×2 (01:10→11:24)
[2021-05-29] MEDS: SODIUM CHLORIDE FLUSH 0.9% 10 ML SYRINGE IVP SCH ×4 (01:15→23:39)
[2021-05-29] MEDS: GABAPENTIN 300 MG CAPSULE PO SCH ×3 (06:58→21:04)
[2021-05-29] MEDS: DIVALPROEX DR 125 MG TABLET PO SCH ×3 (06:58→21:04)
[2021-05-29] MEDS: oxyCODONE 5 MG TABLET PO PRN ×3 (06:59→16:25)
[2021-05-29 07:51] LABS: BASOPHILS % (AUTO) 0.6 %; EOSINOPHILS # (AUTO) 0.1 10^3/uL (0.0-0.7); EOSINOPHILS % (AUTO) 2.4 %; HCT - HEMATOCRIT 35.7 % (37.0-47.0); HGB - HEMOGLOBIN 11.6 g/dL (12.0-16.0); LYMPHOCYTES % (AUTO) 17.6 %; MEAN CORPUSCULAR HGB CONC 32.5 g/dL (32.0-36.0); MEAN CORPUSCULAR VOLUME 92.2 fL (81.0-99.0); MEAN PLATELET VOLUME 9.1 fL (7.9-10.8); MONOCYTES # (AUTO) 0.5 10^3/uL (0.0-1.0); MONOCYTES % (AUTO) 9.9 %; NEUTROPHILS # (AUTO) 3.8 10^3/uL (1.5-6.6); NEUTROPHILS % (AUTO) 69.3 %; PLT - PLATELET COUNT 137 10^3/uL (130-450); RED BLOOD COUNT 3.87 10^6/uL (4.20-5.40); RED CELL DISTRIBUTION WIDTH 14.1 % (12.0-15.0); WHITE BLOOD COUNT 5.5 x10^3/uL (4.8-10.8)
[2021-05-29 08:10] LABS: CALCIUM 9.1 mg/dL (8.5-10.3); CREATININE 0.5 mg/dL (0.4-1.0); POTASSIUM 4.3 mmol/L (3.5-5.0)
[2021-05-29] MEDS: SENNA 8.6 MG TABLET PO SCH (08:30)
[2021-05-29] MEDS: DOCUSATE SODIUM 250 MG CAPSULE PO SCH (08:31)
[2021-05-29] MEDS: diltiaZEM CD 120 MG CAPSULE PO SCH (08:31)
[2021-05-29] MEDS: ASPIRIN CHEW 81 MG TABLET PO SCH (08:31)
[2021-05-29 08:32] LABS: VALPROIC ACID (DEPAKOTE) 28.5 ug/mL
[2021-05-29] MEDS: polyethylene glycoL 3350 17 GM PACKET PO SCH (08:32)
[2021-05-29] MEDS: ACETAMINOPHEN 325 MG TABLET PO PRN ×2 (11:24→16:25)
--- NOTE | 2021-05-29 12:23 | PROVIDER PROGRESS NOTE ---
Assessment/Plan - Problem List (1) Recurrent falls Assessment/Plan: pt had twice falls recently and 10th rib fracture, fall precaution education for pt, continue PT/OT. pt may followup with her PCP to discuss her home meds to reduce risk of fall, agree hold Xarelto because of falls. PT/OT recommend SNF, social welfare clerk consulted for placement. (2) Atrial fibrillation stable, On diltiazem 240mg po daily Xarelto discontinued due to frequent falls (3) Rib fractures Pain management with oxycodone Encouraged to use incentive spirometer, and fall precaution. (4) Depression with anxiety Assessment/Plan: On amitryptilline, remeron and ativan (5) Hypertension stable, On diltiazem (6) Fibromyalgia Assessment/Plan: On gabapentin and amitryptilline (7) Insomnia Assessment/Plan: On restoril and remeron - Current Meds Current Meds: Current Medications Generic Name Dose Route Start Last Admin Trade Name Freq PRN Reason Stop Dose Admin Acetaminophen 650 mg 05/26/21 17:35 05/29/21 11:24 Acetaminophen 325 Mg Tablet PO 650 mg Q4HR PRN Administration Pain 1 to 4 Amitriptyline HCl 25 mg 05/26/21 21:00 05/28/21 22:13 Amitriptyline 25 Mg Tablet PO Not Given HS GAGAN Aspirin 81 mg 05/27/21 09:00 05/29/21 08:31 Aspirin Chew 81 Mg Tablet PO 81 mg DAILY GAGAN Administration Budesonide 0.5 mg 05/27/21 19:00 05/28/21 19:42 Budesonide 0.5 Mg/2 Ml Neb INH 0.5 mg RTBID GAGAN Administration Diltiazem HCl 240 mg 05/27/21 09:00 05/29/21 08:31 Diltiazem Cd 120 Mg Capsule PO 240 mg DAILY GAGAN Administration Divalproex Sodium 125 mg 05/26/21 22:00 05/29/21 06:[address] 125 Mg Tablet PO 125 mg TID GAGAN Administration Docusate Sodium 250 - 500 mg 05/27/21 21:00 05/29/21 08:31 Docusate Sodium 250 Mg Capsule PO 250 mg DAILY GAGAN Administration Formoterol Fumarate 20 mcg 05/27/21 19:00 05/28/21 19:42 Formoterol Fumarate Neb 20 Mcg/2 Ml INH 20 mcg RTBID GAGAN Administration Gabapentin 600 mg 05/26/21 22:00 05/29/21 06:58 Gabapentin 300 Mg Capsule PO 600 mg TID GAGAN Administration Hydromorphone HCl 0.5 mg 05/26/21 17:35 05/26/21 19:11 Hydromorphone 0.5 Mg/0.5 Ml Syringe IVP 0.5 mg Q2H PRN Administration Pain 8 to 10 Methocarbamol 500 mg 05/26/21 17:47 05/29/21 11:24 Methocarbamol 500 Mg Tablet PO 500 mg TID PRN Administration PAIN Mirtazapine 45 mg 05/26/21 21:00 05/28/21 22:16 Mirtazapine 15 Mg Tablet PO 45 mg QPM GAGAN Administration Oxycodone HCl 5 mg 05/26/21 17:35 05/29/21 11:23 Oxycodone 5 Mg Tablet PO 5 mg Q4HR PRN Administration Pain 5 to 7 Polyethylene Glycol 17 gm 05/27/21 11:00 05/29/21 08:32 Polyethylene Glycol 3350 17 Gm Packet PO Not Given DAILY GAGAN Prazosin HCl 4 mg 05/26/21 21:00 05/28/21 22:15 Prazosin 1 Mg Capsule PO 4 mg QPM GAGAN Administration Senna 8.6 - 17.2 mg 05/27/21 21:00 05/29/21 08:30 Senna 8.6 Mg Tablet PO 8.6 mg DAILY GAGAN Administration Sodium Chloride 10 ml 05/27/21 01:00 05/29/21 08:32 Sodium Chloride Flush 0.9% 10 Ml Syringe IVP Not Given 0100,0900,1700 GAGAN Temazepam 30 mg 05/26/21 21:40 05/28/21 22:24 Temazepam 15 Mg Capsule PO 30 mg QPM PRN Administration Insomnia - Lab Result Fish Bone Diagrams: 05/29/21 07:41 05/29/21 07:41 - Additional Planning My Orders: My Active Orders 05/29/21 21:00 QUEtiapine [SEROquel] 25 mg PO QPM Subjective - Subjective Patient Reports: Resting Comfortably Objective Vital Signs: Vital Signs - 24 hr 05/28/21 05/28/21 05/28/21 16:19 19:43 21:00 Temperature 37.1 C 36.9 C Heart Rate 77 Heart Rate [ 80 87 Brachial] Respiratory 16 18 16 Rate Blood Pressure 138/80 H 146/68 H [Right Brachial artery] Blood Pressure [Right Radial artery] O2 Saturation 92 92 05/29/21 05/29/21 05/29/21 01:23 05:37 08:27 Temperature 37.1 C 37 C Heart Rate Heart Rate [ 79 94 92 Brachial] Respiratory 18 18 20 Rate Blood Pressure 133/78 H 150/57 H [Right Brachial artery] Blood Pressure 134/74 H [Right Radial artery] O2 Saturation 91 L 95 92 Oxygen O2 Source [Without Activity] Room air O2 Source Room air I&O (Last 24 Hrs): Intake and Output Totals x24h 05/27/21 05/28/21 05/29/21 23:59 23:59 23:59 Intake Total 2000 1737.5 0 Output Total 0 745 700 Balance 2000 992.5 -700 General: Alert, Oriented x3, No acute distress HEENT: Atraumatic Neck: Supple Lymphatic: no adenopathy Neuro: Alert, Non Focal, Oriented Times 3 Cardiovascular: Regular rate, Normal S1, Normal S2 Respiratory: Chest non-tender, No respiratory distress Abdomen: Normal bowel sounds, Soft Extremities: Normal pulses - Results Results: Laboratory Results WBC 5.5 x10^3/uL (4.8-10.8) 05/29/21 07:41 RBC 3.87 10^6/uL (4.20-5.40) L 05/29/21 07:41 Hgb 11.6 g/dL (12.0-16.0) L 05/29/21 07:41 Hct 35.7 % (37.0-47.0) L 05/29/21 07:41 MCV 92.2 fL (81.0-99.0) 05/29/21 07:41 MCH 30.0 pg (27.0-31.0) 05/29/21 07:41 MCHC 32.5 g/dL (32.0-36.0) 05/29/21 07:41 RDW 14.1 % (12.0-15.0) 05/29/21 07:41 Plt Count 137 10^3/uL (130-450) 05/29/21 07:41 MPV 9.1 fL (7.9-10.8) 05/29/21 07:41 Neut # (Auto) 3.8 10^3/uL (1.5-6.6) 05/29/21 07:41 Lymph # (Auto) 1.0 10^3/uL (1.5-3.5) L 05/29/21 07:41 [place] # (Auto) 0.5 10^3/uL (0.0-1.0) 05/29/21 07:41 Eos # (Auto) 0.1 10^3/uL (0.0-0.7) 05/29/21 07:41 Baso # (Auto) 0.0 10^3/uL (0.0-0.1) 05/29/21 07:41 Absolute Nucleated RBC 0.00 x10^3/uL 05/29/21 07:41 Nucleated RBC % 0.0 /100WBC 05/29/21 07:41 Sodium 140 mmol/L (135-145) 05/29/21 07:41 Potassium 4.3 mmol/L (3.5-5.0) 05/29/21 07:41 Chloride 103 mmol/L (101-111) 05/29/21 07:41 Carbon Dioxide 28 mmol/L (21-32) 05/29/21 07:41 Anion Gap 9.0 (6-13) 05/29/21 07:41 BUN 17 mg/dL (6-20) 05/29/21 07:41 Creatinine 0.5 mg/dL (0.4-1.0) 05/29/21 07:41 Estimated GFR (MDRD) 120 (>89) 05/29/21 07:41 Glucose 114 mg/dL (70-100) H 05/29/21 07:41 Lactic Acid 1.8 mmol/L (0.5-2.2) 05/26/21 12:38 Calcium 9.1 mg/dL (8.5-10.3) 05/29/21 07:41 Total Bilirubin 0.7 mg/dL (0.2-1.0) 05/26/21 12:38 AST 20 IU/L (10-42) 05/26/21 12:38 ALT 13 IU/L (10-60) 05/26/21 12:38 Alkaline Phosphatase 43 IU/L (42-121) 05/26/21 12:38 Total Protein 7.4 g/dL (6.7-8.2) 05/26/21 12:38 Albumin 3.9 g/dL (3.2-5.5) 05/26/21 12:38 Globulin 3.5 g/dL (2.1-4.2) 05/26/21 12:38 Albumin/Globulin Ratio 1.1 (1.0-2.2) 05/26/21 12:38 Lipase 21 U/L (22-51) L 05/26/21 12:38 Urine Color YELLOW 05/26/21 13:00 Urine Clarity CLEAR (CLEAR) 05/26/21 13:00 Urine pH 6.0 PH (5.0-7.5) 05/26/21 13:00 Ur Specific [place] 1.025 (1.002-1.030) 05/26/21 13:00 Urine Protein NEGATIVE mg/dL (NEGATIVE) 05/26/21 13:00 Urine Glucose (UA) NEGATIVE mg/dL (NEGATIVE) 05/26/21 13:00 Urine Ketones 15 mg/dL (NEGATIVE) H 05/26/21 13:00 Urine Occult Blood TRACE-INTA (NEGATIVE) 05/26/21 13:00 Urine Nitrite NEGATIVE (NEGATIVE) 05/26/21 13:00 Urine Bilirubin NEGATIVE (NEGATIVE) 05/26/21 13:00 Urine Urobilinogen 0.2 (NORMAL) E.U./dL (NORMAL) 05/26/21 13:00 Ur Leukocyte Esterase NEGATIVE (NEGATIVE) 05/26/21 13:00 Ur Microscopic Review NOT INDICATED 05/26/21 13:00 Urine Culture Comments NOT INDICATED 05/26/21 13:00 Nasal Adenovirus (PCR) NOT DETECTED 05/26/21 16:35 Nasal B. parapertussis DNA (PCR) NOT DETECTED 05/26/21 16:35 Nasal Coronavir 229E PCR NOT DETECTED 05/26/21 16:35 Nasal Coronavir HKU1 PCR NOT DETECTED 05/26/21 16:35 Nasal Coronavir NL63 PCR NOT DETECTED 05/26/21 16:35 Nasal Coronavir OC43 PCR NOT DETECTED 05/26/21 16:35 Nasal Enterovir/Rhinovir PCR NOT DETECTED 05/26/21 16:35 Nasal Influenza B PCR NOT DETECTED 05/26/21 16:35 Nasal Influenza A PCR NOT DETECTED 05/26/21 16:35 Nasal Parainfluen 1 PCR NOT DETECTED 05/26/21 16:35 Nasal Parainfluen 2 PCR NOT DETECTED 05/26/21 16:35 Nasal Parainfluen 3 PCR NOT DETECTED 05/26/21 16:35 Nasal Parainfluen 4 PCR NOT DETECTED 05/26/21 16:35 Nasal RSV (PCR) NOT DETECTED 05/26/21 16:35 Nasal B.pertussis DNA PCR NOT DETECTED 05/26/21 16:35 Nasal C.pneumoniae (PCR) NOT DETECTED 05/26/21 16:35 [place] Human Metapneumo PCR NOT DETECTED 05/26/21 16:35 Nasal M.pneumoniae (PCR) NOT DETECTED 05/26/21 16:35 Nasal SARS-CoV-2 (PCR) NOT DETECTED 05/26/21 16:35 Last Dose Date 05/29/21 05/29/21 07:41 Last Dose Time 0605/29/21 07:41 Valproic Acid 28.5 ug/mL 05/29/21 07:41 - Procedures Procedures: Procedures EXCISION OF SIGMOID COLON, ENDO (05/16/15) INSPECTION OF LOWER INTESTINAL TRACT, ENDO (02/10/19) RESECTION OF GALLBLADDER, PERCUTANEOUS ENDOSCOPIC APPROACH (02/12/21) Sepsis Event Note (H) - Evaluation Current Stage of Sepsis: Ruled out ABX Reporting Has patient been on IV antibiotics over the past 48 hours?: No Current Medications - Current Medications Current Medications: Active Medications Acetaminophen (Acetaminophen 325 Mg Tablet) 650 mg PO Q4HR PRN PRN Reason: Pain 1 to 4 Last Admin: 05/29/21 11:24 Dose: 650 mg Documented by: Amitriptyline HCl (Amitriptyline 25 Mg Tablet) 25 mg PO HS [facility] Last Admin: 05/28/21 22:13 Dose: Not Given Documented by: Aspirin (Aspirin Chew 81 Mg Tablet) 81 mg PO DAILY [facility] Last Admin: 05/29/21 08:31 Dose: 81 mg Documented by: Budesonide (Budesonide 0.5 Mg/2 Ml Neb) 0.5 mg INH RTBID [facility] Last Admin: 05/28/21 19:42 Dose: 0.5 mg Documented by: Diltiazem HCl (Diltiazem Cd 120 Mg Capsule) 240 mg PO DAILY [facility] Last Admin: 05/29/21 08:31 Dose: 240 mg Documented by: Divalproex Sodium (Divalproex Dr 125 Mg Tablet) 125 mg PO TID [facility] Last Admin: 05/29/21 06:58 Dose: 125 mg Documented by: Docusate Sodium (Docusate Sodium 250 Mg Capsule) 250 - 500 mg PO DAILY [facility] Last Admin: 05/29/21 08:31 Dose: 250 mg Documented by: Formoterol Fumarate (Formoterol Fumarate Neb 20 Mcg/2 Ml) 20 mcg INH RTBID [facility] Last Admin: 05/28/21 19:42 Dose: 20 mcg Documented by: Gabapentin (Gabapentin 300 Mg Capsule) 600 mg PO TID [facility] Last Admin: 05/29/21 06:58 Dose: 600 mg Documented by: Hydromorphone HCl (Hydromorphone 0.5 Mg/0.5 Ml Syringe) 0.5 mg IVP Q2H PRN PRN Reason: Pain 8 to 10 Last Admin: 05/26/21 19:11 Dose: 0.5 mg Documented by: Lorazepam (Lorazepam 0.5 Mg Tablet) 0.5 mg PO Q8H PRN PRN Reason: Anxiety Methocarbamol (Methocarbamol 500 Mg Tablet) 500 mg PO TID PRN PRN Reason: PAIN Last Admin: 05/29/21 11:24 Dose: 500 mg Documented by: Mirtazapine (Mirtazapine 15 Mg Tablet) 45 mg PO QPM [facility] Last Admin: 05/28/21 22:16 Dose: 45 mg Documented by: Ondansetron HCl (Ondansetron Odt 4 Mg Tablet) 4 mg TL Q6HR PRN PRN Reason: Nausea / Vomiting Ondansetron HCl (Ondansetron 4 Mg/2 Ml Vial) 4 mg IVP Q6HR PRN PRN Reason: Nausea / Vomiting Oxycodone HCl (Oxycodone 5 Mg Tablet) 5 mg PO Q4HR PRN PRN Reason: Pain 5 to 7 Last Admin: 05/29/21 11:23 Dose: 5 mg Documented by: Polyethylene Glycol (Polyethylene Glycol 3350 17 Gm Packet) 17 gm PO DAILY [facility] Last Admin: 05/29/21 08:32 Dose: Not Given Documented by: Prazosin HCl (Prazosin 1 Mg Capsule) 4 mg PO QPM [facility] Last Admin: 05/28/21 22:15 Dose: 4 mg Documented by: Quetiapine Fumarate (Quetiapine 25 Mg Tablet) 25 mg PO QPM [facility] Senna (Senna 8.6 Mg Tablet) 8.6 - 17.2 mg PO DAILY [facility] Last Admin: 05/29/21 08:30 Dose: 8.6 mg Documented by: Sodium Chloride (Sodium Chloride Flush 0.9% 10 Ml Syringe) 10 ml IVP PRN PRN PRN Reason: NEEDED PER PROVIDER ORDERS Sodium Chloride (Sodium Chloride Flush 0.9% 10 Ml Syringe) 10 ml IVP 0100,0900,1700 [facility] Last Admin: 05/29/21 08:32 Dose: Not Given Documented by: Temazepam (Temazepam 15 Mg Capsule) 30 mg PO QPM PRN PRN Reason: Insomnia Last Admin: 05/28/21 22:24 Dose: 30 mg Documented by: Atorvastatin Calcium 40 mg PO QPM 02/05/[address] [Depakote Dr] 375 mg PO TID 02/05/21 Prazosin HCl [Minipress] 2 - 4 mg PO QPM 02/05/21 Rivaroxaban [Xarelto] 20 mg PO QDDINNER 02/05/21 Temazepam [Restoril] 30 mg PO QPM PRN 02/05/21 diltiaZEM CD [Cardizem Cd] 240 mg PO DAILY 02/05/21 Budesonide/Formoterol Fumarate [Symbicort 160-4.5 Mcg Inhaler] 2 puffs INH BID 02/12/21 Gabapentin [Neurontin] 600 mg PO TID 02/12/21 Mirtazapine 45 mg PO QPM 02/12/21 Alendronate [Fosamax] 70 mg PO OAW 05/27/21 Amitriptyline [Elavil] 25 mg PO QPM PRN 05/27/21 Cholecalciferol (Vitamin D3) [Vitamin D3] 50 mcg PO DAILY 05/27/21 Docusate Sodium 100Mg Capsule [Colace 100Mg Capsule] 100 mg PO DAILY 05/27/21 Levocetirizine Dihydrochloride 5 mg PO DAILY PRN 05/27/21 QUEtiapine [SEROquel] 25 - 50 mg PO QPM 05/27/21 methocarbamoL [Methocarbamol] 500 mg PO TID PRN 05/27/21
[2021-05-29] MEDS: FORMOTEROL FUMARATE NEB 20 MCG/2 ML INH SCH ×3 (17:01→17:04)
[2021-05-29] MEDS: BUDESONIDE 0.5 MG/2 ML NEB INH SCH ×3 (17:01→17:05)
--- NOTE | 2021-05-29 17:37 | PROVIDER PROGRESS NOTE ---
Subjective - Prog Note Date Prog Note Date: 05/29/21 - Subjective Pt reports feeling: Improved (awake, alert, comfortable) Objective - Vital Signs/Intake & Output Reviewed Vital Signs: Yes Vital Signs: Vital Signs x48h Temp Pulse Pulse Pulse Resp BP BP 05/29/21 17:06 104 H 22 05/29/21 16:38 36.9 C 83 22 133/75 H 05/29/21 13:00 37.1 C 78 20 124/63 05/29/21 11:40 87 124/65 Pulse Ox 05/29/21 17:06 05/29/21 16:38 98 05/29/21 13:00 94 05/29/21 11:40 Intake & Output: Intake & Output 05/26/21 05/27/21 05/28/21 05/29/21 23:59 23:59 23:59 23:59 Intake Total 1100 2000 1737.5 240 Output Total 0 745 1200 Balance 1100 2000 992.5 -960 - Objective General Appearance: positive: No acute distress, Alert Respiratory: positive: No respiratory distress, Other (taking deep/ normal breaths without discomfort) - Lab Results Fish Bones: 05/29/21 07:41 05/29/21 07:41 Other Labs: Lab Results x24hrs 05/29/21 05/29/21 05/29/21 Range/Units 07:41 07:41 07:41 WBC 5.5 (4.8-10.8) x10^3/uL RBC 3.87 L (4.20-5.40) 10^6/uL Hgb 11.6 L (12.0-16.0) g/dL Hct 35.7 L (37.0-47.0) % MCV 92.2 (81.0-99.0) fL MCH 30.0 (27.0-31.0) pg MCHC 32.5 (32.0-36.0) g/dL RDW 14.1 (12.0-15.0) % Plt Count 137 (130-450) 10^3/uL MPV 9.1 (7.9-10.8) fL Neut # (Auto) 3.8 (1.5-6.6) 10^3/uL Lymph # (Auto) 1.0 L (1.5-3.5) 10^3/uL Union # (Auto) 0.5 (0.0-1.0) 10^3/uL Eos # (Auto) 0.1 (0.0-0.7) 10^3/uL Baso # (Auto) 0.0 (0.0-0.1) 10^3/uL Absolute Nucleated RBC 0.00 x10^3/uL Nucleated RBC % 0.0 /100WBC Sodium 140 (135-145) mmol/L Potassium 4.3 (3.5-5.0) mmol/L Chloride 103 (101-111) mmol/L Carbon Dioxide 28 (21-32) mmol/L Anion Gap 9.0 (6-13) BUN 17 (6-20) mg/dL Creatinine 0.5 (0.4-1.0) mg/dL Estimated GFR (MDRD) 120 (>89) Glucose 114 H (70-100) mg/dL Calcium 9.1 (8.5-10.3) mg/dL Last Dose Date 05/29/21 Last Dose Time 0658 Valproic Acid 28.5 ug/mL Sepsis Event Note (H) - Evaluation Current Stage of Sepsis: Ruled out Assessment/Plan - Problem List (1) Recurrent falls Impression: doing well. agree with d/c plan thank you medical service with help on this
[2021-05-29 17:57] LABS: B. PARAPERTUSSIS- RESP PCR PAN NOT DETECTED; B. PERTUSSIS- RESP PCR PANEL NOT DETECTED; C. PNEUMONIAE- RESP PCR PANEL NOT DETECTED; CORONAVIRUS 229E-RESP PCR NOT DETECTED; CORONAVIRUS HKU1-RESP PCR NOT DETECTED; CORONAVIRUS NL63-RESP PCR NOT DETECTED; CORONAVIRUS OC43-RESP PCR NOT DETECTED; HUMAN METAPNEUMOVIRUS NOT DETECTED; INFLUENZA A- RESP PCR PANEL NOT DETECTED; INFLUENZA B - RESP PCR PANEL NOT DETECTED; M. PNEUMONIAE- RESP PCR PANEL NOT DETECTED; PARAINFLUENZA VIRUS 1 NOT DETECTED; PARAINFLUENZA VIRUS 2 NOT DETECTED; PARAINFLUENZA VIRUS 3 NOT DETECTED; PARAINFLUENZA VIRUS 4 NOT DETECTED; RHINOVIRUS/ENTEROVIRUS NOT DETECTED; RSV- RESP PCR PANEL NOT DETECTED; SARS-CoV-2 -RESP PCR PANEL NOT DETECTED
[2021-05-29] MEDS ORDERED: QUEtiapine 25 MG TABLET PO SCH (21:00)
[2021-05-29] MEDS: PRAZOSIN 1 MG CAPSULE PO SCH (21:03)
[2021-05-29] MEDS: AMITRIPTYLINE 25 MG TABLET PO SCH (21:03)
[2021-05-29] MEDS: MIRTAZAPINE 15 MG TABLET PO SCH (21:04)
[2021-05-30] MEDS: SODIUM CHLORIDE FLUSH 0.9% 10 ML SYRINGE IVP SCH ×2 (03:10→09:20)
[2021-05-30] MEDS: ACETAMINOPHEN 325 MG TABLET PO PRN (06:38)
[2021-05-30] MEDS: oxyCODONE 5 MG TABLET PO PRN (06:38)
[2021-05-30] MEDS: GABAPENTIN 300 MG CAPSULE PO SCH (06:39)
[2021-05-30] MEDS: DIVALPROEX DR 125 MG TABLET PO SCH (06:39)
[2021-05-30 07:30] LABS: BASOPHILS % (AUTO) 0.4 %; EOSINOPHILS % (AUTO) 0.3 %; HCT - HEMATOCRIT 32.4 % (37.0-47.0); HGB - HEMOGLOBIN 10.6 g/dL (12.0-16.0); LYMPHOCYTES # (AUTO) 1.4 10^3/uL (1.5-3.5); LYMPHOCYTES % (AUTO) 18.2 %; MEAN CORPUSCULAR HEMOGLOBIN 29.9 pg (27.0-31.0); MEAN CORPUSCULAR HGB CONC 32.7 g/dL (32.0-36.0); MEAN CORPUSCULAR VOLUME 91.3 fL (81.0-99.0); MEAN PLATELET VOLUME 9.6 fL (7.9-10.8); MONOCYTES # (AUTO) 0.7 10^3/uL (0.0-1.0); NEUTROPHILS # (AUTO) 5.5 10^3/uL (1.5-6.6); NEUTROPHILS % (AUTO) 71.8 %; PLT - PLATELET COUNT 147 10^3/uL (130-450); RED BLOOD COUNT 3.55 10^6/uL (4.20-5.40); RED CELL DISTRIBUTION WIDTH 14.2 % (12.0-15.0); WHITE BLOOD COUNT 7.6 x10^3/uL (4.8-10.8)
[2021-05-30 07:42] LABS: CALCIUM 9.5 mg/dL (8.5-10.3); CREATININE 0.6 mg/dL (0.4-1.0); POTASSIUM 4.7 mmol/L (3.5-5.0)
[2021-05-30] MEDS: FORMOTEROL FUMARATE NEB 20 MCG/2 ML INH SCH (08:16)
[2021-05-30] MEDS: BUDESONIDE 0.5 MG/2 ML NEB INH SCH (08:16)
--- NOTE | 2021-05-30 08:35 | Discharge Plan ---
"Discharge Plan for SNF / [facility] - Discharge Plan And Transition Orders Problem Reviewed?: Yes Disposition: 03 SNF DC/Xfer Allergies and Adverse Reactions: Allergies Allergy/AdvReac Type Severity Reaction Status Date / Time Tetracyclines Allergy Intermediate Rash Verified 05/26/21 12:00 ciprofloxacin Allergy Nausea Verified 05/26/21 12:00 amoxicillin trihydrate * AdvReac Intermediate Nausea Verified 05/26/21 12:00 [From Augmentin] Penicillins AdvReac Nausea Verified 05/26/21 12:00 Health Concerns: recurrent falls and rib fractures Plan of Treatment: pt is d/c to [facility], continue PT/OT strength and fall prevention training. Because of her frequent falls, her home meds Xarelto is hold, pt may return to have Xarelto after reviewed by her medical provider and her fall controlled. Pt is prescribed OXycodon 5mg Q4H PRN for her rib fracture pain control, encourage pt continue to use incentive spirometer, and continue fall prevention. Care Goals: Stabilization and fall prevention, and pain control, rib fracture healing. Assessment: Discussed the care plan in detail with the patient, answered Patients' questions, she understood and agreed - SNF / [facility] Transition Orders Admit to (Facility): [facility] Under the care of (Name): Medical provider of [facility] Discharge Diagnosis: Recurrent falls, atrial fibrillations, rib fractures, depression with anxiety, Hypertension, fibromyalgia, insomnia Medicare Certification Statement: I certify that [facility] halfway care is medically necessary on a continuing basis for any of the conditions for which she/he is receiving care during hospitalization. Notify PCP of admission and forward orders to primary provider for signature. Weight on admission and: Weekly Call PCP immediately if weight increases by: 2 kg Other Notification Orders: Call PCP immediately if patient develops dyspnea, chest pain/tightness or edema. House Bowel Program: Yes Additional Bowel Program Orders: If no BM after 2 days, nurse may give M.O.M. 30ml PO PRN and/or ducolax Supp 1 PA and/or WILMER 250mg P.O., and/or senna 1-2 tabs PO. On day 3 nurse may give repeat above order until residents constipation is resolved. Annual Influenza Vaccine (between Jan 24 and August 23): Yes Two-step PPD per [facility] [phone] or approved exception documents: Yes Treatments & Other Orders: pt is d/c to [facility], continue PT/OT strength and fall prevention training. Because of her frequent falls, her home meds Xarelto is hold, pt may return to have Xarelto after reviewed by her medical provider and her fall controlled. Pt is prescribed OXycodon 5mg Q4H PRN for her rib fracture pain control, encourage pt continue to use incentive spirometer, and continue fall prevention. Medication Orders: PLEASE REFER TO THE DISCHARGE MEDICATION LIST. Insulin Orders?: No - Medications New Prescriptions: oxyCODONE [Roxicodone] 5 mg PO Q4HR PRN #20 tablet PRN Reason: Pain 5 to 7 - Diet Type: Geriatric Texture: Regular Liquids: Thin May have monthly special meal: Yes - Therapies | Activity Therapy: Evaluation | Treat if indicated: PT, OT Rehabilitation Potential: Maximize functional status Activity: Activity as Tolerated"
[2021-05-30 08:48] VITALS: BP 120/55
--- NOTE | 2021-05-30 08:48 | DISCHARGE SUMMARY ---
"Discharge Summary Admit Date: 05/26/21 Discharge Date: 05/30/21 Discharging Provider: Paul Pedroza Primary Care Provider: Sharan Salmeron Condition at Discharge: Stable Discharge Disposition: SNF DC/Xfer Discharge Facility Name: [facility] - DIAGNOSES Discharge Diagnoses with Status of Each Condition: (1) Recurrent falls pt is d/c to SNF for continue strength training and fall prevention. Because pt has frequent falls. pt agree hold Xarelto until she see her medical provider and her fall controlled. (2) Atrial fibrillation stable, resume home diltiazem 240mg po daily. Xarelto hold now due to frequent falls (3) Rib fractures Pain management with PRN oxycodone prescribed Encouraged to use incentive spirometer, and fall precaution. (4) Depression with anxiety stable, resume home meds (5) Hypertension stable, resume home meds (6) Fibromyalgia stable, resume home meds (7) Insomnia stable, resume home meds. - HPI History of Present Illness: refer Dr. Vaughn's HPI on 05/26/21 She has history of severe muscle deconditioning. She lives alone. Has limited support. Denies having any family available. She has fallen twice in the last few days and is seen and evaluated in the ED. She currently is not safe at home or capable of taking care of her self. She has chronic pain and when first seen in the ED her pain was poorly controlled. She has had a thorough work up. single rib fracture right and left side. degenerative brain changes work up otherwise unremarkable - CONSULTS | PROCEDURES Consultations: Dr. Vaughn Procedures: no - ALLERGIES Allergies/Adverse Reactions: Allergies Allergy/AdvReac Type Severity Reaction Status Date / Time Tetracyclines Allergy Intermediate Rash Verified 05/26/21 12:00 ciprofloxacin Allergy Nausea Verified 05/26/21 12:00 amoxicillin trihydrate * AdvReac Intermediate Nausea Verified 05/26/21 12:00 [From Augmentin] Penicillins AdvReac Nausea Verified 05/26/21 12:00 - MEDICATIONS Home Medications: Ambulatory Orders Medication Instructions Recorded Confirmed Atorvastatin Calcium 40 mg PO QPM 02/05/21 05/27/21 Divalproex [Domingo Smith] 375 mg PO TID 02/05/21 05/27/21 Prazosin HCl [Minipress] 2 - 4 mg PO QPM 02/05/21 05/27/21 diltiaZEM CD [Cardizem Cd] 240 mg PO DAILY 02/05/21 05/27/21 Budesonide/Formoterol Fumarate 2 puffs INH BID 02/12/21 05/27/21 [Symbicort 160-4.5 Mcg Inhaler] Gabapentin [Neurontin] 600 mg PO TID 02/12/21 05/27/21 Mirtazapine 45 mg PO QPM 02/12/21 05/27/21 Ondansetron Odt [Zofran Odt] 4 mg TL Q6H PRN #10 tablet 02/13/21 05/27/21 Alendronate [Fosamax] 70 mg PO OAW 05/27/21 05/27/21 Amitriptyline [Elavil] 25 mg PO QPM PRN 05/27/21 05/27/21 Cholecalciferol (Vitamin D3) 50 mcg PO DAILY 05/27/21 05/27/21 [Vitamin D3] Docusate Sodium 100Mg Capsule 100 mg PO DAILY 05/27/21 05/27/21 [Colace 100Mg Capsule] Levocetirizine Dihydrochloride 5 mg PO DAILY PRN 05/27/21 05/27/21 QUEtiapine [SEROquel] 25 - 50 mg PO QPM 05/27/21 05/27/21 methocarbamoL [Methocarbamol] 500 mg PO TID PRN 05/27/21 05/27/21 Temazepam [Restoril] 30 mg PO QPM PRN #10 cap 05/30/21 oxyCODONE [Roxicodone] 5 mg PO Q4-6H PRN #20 tablet 05/30/21 - PHYSICAL EXAM AT DISCHARGE General Appearance: positive: No acute distress, Alert. negative: Lethargic Eyes Bilateral: positive: Normal inspection, No lid inflammation ENT: positive: ENT inspection nml, No signs of dehydration. negative: Purulent nasal drainage Neck: positive: Nml inspection, Trachea midline. negative: Tracheal deviation Respiratory: positive: Chest non-tender, No respiratory distress, Breath sounds nml. negative: Wheezes Cardiovascular: positive: Regular rate & rhythm. negative: Tachycardia, Bradycardia, Systolic murmur Peripheral Pulses: positive: 2+ Abdomen: positive: Non-tender, Nml bowel sounds, No distention. negative: Tenderness Back: positive: Nml inspection Skin: positive: Color nml, Warm, Dry. negative: Cyanosis Extremities: positive: Non-tender, Full ROM, Nml appearance Neurologic/Psychiatric: positive: Oriented x3, Motor nml, Sensation nml. n egative: Weakness, Sensory loss, Facial droop, Slurred/abnml speech, Depressed mood/affect - LABS Result Diagrams: 05/30/21 07:11 05/30/21 07:11 - SEPSIS Current Stage of Sepsis: Ruled out - FOLLOW UP Follow Up: pt is d/c to [facility], continue PT/OT strength and fall prevention training. Because of her frequent falls, her home meds Xarelto is hold, pt may return to have Xarelto after reviewed by her medical provider and her fall controlled. Pt is prescribed OXycodon 5mg Q4H PRN for her rib fracture pain control, encourage pt continue to use incentive spirometer, and continue fall prevention. - TIME SPENT Time Spent in Discharge (Minutes): 30"
[2021-05-30] MEDS: diltiaZEM CD 120 MG CAPSULE PO SCH (09:18)
[2021-05-30] MEDS: methocarbamoL 500 MG TABLET PO PRN (09:19)
[2021-05-30] MEDS: DOCUSATE SODIUM 250 MG CAPSULE PO SCH (09:19)
[2021-05-30] MEDS: ASPIRIN CHEW 81 MG TABLET PO SCH (09:19)
[2021-05-30] MEDS: polyethylene glycoL 3350 17 GM PACKET PO SCH (09:19)
[2021-05-30] MEDS: SENNA 8.6 MG TABLET PO SCH (09:19)
--- NOTE | 2021-05-30 09:42 | PROVIDER PROGRESS NOTE ---
Subjective - Subjective Subjective: sound asleep. taking nice deep breaths Objective - Vital Signs/Intake & Output Vital Signs: Vital Signs x48h Temp Pulse Pulse Resp BP BP Pulse Ox 05/30/21 08:46 37.0 C 80 16 120/55 L 95 05/30/21 08:04 85 23 05/30/21 06:28 37.1 C 96 18 146/74 H 93 Intake & Output: Intake & Output 05/27/21 05/28/21 05/29/21 05/30/21 23:59 23:59 23:59 23:59 Intake Total 2000 1737.5 480 195 Output Total 0 745 1800 Balance 2000 992.5 -1320 195 - Objective General Appearance: positive: No acute distress Respiratory: positive: No respiratory distress - Lab Results Fish Bones: 05/30/21 07:11 05/30/21 07:11 Other Labs: Lab Results x24hrs 05/30/21 05/30/21 05/29/21 Range/Units 07:11 07:11 16:50 WBC 7.6 (4.8-10.8) x10^3/uL RBC 3.55 L (4.20-5.40) 10^6/uL Hgb 10.6 L (12.0-16.0) g/dL Hct 32.4 L (37.0-47.0) % MCV 91.3 (81.0-99.0) fL MCH 29.9 (27.0-31.0) pg MCHC 32.7 (32.0-36.0) g/dL RDW 14.2 (12.0-15.0) % Plt Count 147 (130-450) 10^3/uL MPV 9.6 (7.9-10.8) fL Neut # (Auto) 5.5 (1.5-6.6) 10^3/uL Lymph # (Auto) 1.4 L (1.5-3.5) 10^3/uL Lawrence # (Auto) 0.7 (0.0-1.0) 10^3/uL Eos # (Auto) 0.0 (0.0-0.7) 10^3/uL Baso # (Auto) 0.0 (0.0-0.1) 10^3/uL Absolute Nucleated RBC 0.00 x10^3/uL Nucleated RBC % 0.0 /100WBC Sodium 139 (135-145) mmol/L Potassium 4.7 (3.5-5.0) mmol/L Chloride 103 (101-111) mmol/L Carbon Dioxide 29 (21-32) mmol/L Anion Gap 7.0 (6-13) BUN 16 (6-20) mg/dL Creatinine 0.6 (0.4-1.0) mg/dL Estimated GFR (MDRD) 97 (>89) Glucose 124 H (70-100) mg/dL Calcium 9.5 (8.5-10.3) mg/dL Nasal Adenovirus (PCR) NOT DETECTED Nasal B. parapertussis DNA (PCR) NOT DETECTED Nasal Coronavir 229E PCR NOT DETECTED Nasal Coronavir HKU1 PCR NOT DETECTED Nasal Coronavir NL63 PCR NOT DETECTED Nasal Coronavir OC43 PCR NOT DETECTED Nasal Enterovir/Rhinovir PCR NOT DETECTED Nasal Influenza B PCR NOT DETECTED Nasal Influenza A PCR NOT DETECTED Nasal Parainfluen 1 PCR NOT DETECTED Nasal Parainfluen 2 PCR NOT DETECTED Nasal Parainfluen 3 PCR NOT DETECTED Nasal Parainfluen 4 PCR NOT DETECTED Nasal RSV (PCR) NOT DETECTED Nasal B.pertussis DNA PCR NOT DETECTED Nasal C.pneumoniae (PCR) NOT DETECTED Moisés Human Metapneumo PCR NOT DETECTED Nasal M.pneumoniae (PCR) NOT DETECTED Nasal SARS-CoV-2 (PCR) NOT DETECTED Sepsis Event Note (H) - Evaluation Current Stage of Sepsis: Ruled out Assessment/Plan - Problem List (1) Recurrent falls Impression: doing well. appreciate d/c planning and medical service help.
== END 2021-05-30 11:15 | DRG 948 ==
LOC: EDUNIT# → ED 11:51 → MS2 17:35
PROVIDERS: ADMIT Surgery; ATTEND Nurse Practitioner Gerontology
DX: S22.43XA Multiple fractures of ribs, bilateral, initial encounter for closed fracture (principal); S09.90XA Unspecified injury of head, initial encounter; G89.11 Acute pain due to trauma; S22.32XA Fracture of one rib, left side, initial encounter for closed fracture; S22.31XA Fracture of one rib, right side, initial encounter for closed fracture; J45.901 Unspecified asthma with (acute) exacerbation; W01.190A Fall on same level from slipping, tripping and stumbling with subsequent striking against furniture, initial encounter; M54.2 Cervicalgia; F41.8 Other specified anxiety disorders; Z91.81 History of falling; Y92.003 Bedroom of unspecified non-institutional (private) residence as the place of occurrence of the external cause; I48.91 Unspecified atrial fibrillation; Z79.01 Long term (current) use of anticoagulants; I10 Essential (primary) hypertension; E78.00 Pure hypercholesterolemia, unspecified; R32 Unspecified urinary incontinence; F31.9 Bipolar disorder, unspecified; F43.10 Post-traumatic stress disorder, unspecified; J45.909 Unspecified asthma, uncomplicated; R53.1 Weakness; R26.81 Unsteadiness on feet; M54.9 Dorsalgia, unspecified; G89.29 Other chronic pain; M79.7 Fibromyalgia; G47.00 Insomnia, unspecified; Z20.822 Contact with and (suspected) exposure to COVID-19
CPT/HCPCS: 36415; 51701; 70450; 71045; 71101; 72125; 80048; 80053; 80164; 81003; 83605; 83690; 85025; 87631; 93005; 94640; 96374; 97116; 97162; 97165; 97530; 99283; 99285; A9270; J1170; J7626; 0202U; 81001; 87086

== ENCOUNTER 2021-07-07 08:00 | Outpatient (CLI) | payer MEDICARE, MEDICAID ==
[2021-07-07 13:51] LABS: BASOPHILS % (AUTO) 0.3 %; EOSINOPHILS % (AUTO) 0.6 %; HCT - HEMATOCRIT 35.2 % (37.0-47.0); HGB - HEMOGLOBIN 11.1 g/dL (12.0-16.0); LYMPHOCYTES # (AUTO) 1.4 10^3/uL (1.5-3.5); LYMPHOCYTES % (AUTO) 22.3 %; MEAN CORPUSCULAR HEMOGLOBIN 28.9 pg (27.0-31.0); MEAN CORPUSCULAR HGB CONC 31.5 g/dL (32.0-36.0); MEAN CORPUSCULAR VOLUME 91.7 fL (81.0-99.0); MEAN PLATELET VOLUME 10.2 fL (7.9-10.8); MONOCYTES # (AUTO) 0.5 10^3/uL (0.0-1.0); MONOCYTES % (AUTO) 8.2 %; NEUTROPHILS # (AUTO) 4.3 10^3/uL (1.5-6.6); NEUTROPHILS % (AUTO) 68.3 %; PLT - PLATELET COUNT 137 10^3/uL (130-450); RED BLOOD COUNT 3.84 10^6/uL (4.20-5.40); RED CELL DISTRIBUTION WIDTH 15.9 % (12.0-15.0); WHITE BLOOD COUNT 6.2 x10^3/uL (4.8-10.8)
== END 2021-07-07 23:59 | disposition home or self-care (01) ==
LOC: LAB.N 08:00
PROVIDERS: ATTEND Physician Assistant Medical
DX: N95.0 Postmenopausal bleeding (principal); R31.9 Hematuria, unspecified; N95.2 Postmenopausal atrophic vaginitis
CPT/HCPCS: 36415; 85025; 87086

== ENCOUNTER 2021-07-14 16:33 | Outpatient (CLI) | payer MEDICARE, MEDICAID ==
--- NOTE | 2021-07-14 17:57 | Ultrasound Report ---
PROCEDURE: Pelvic w/Transvaginal INDICATIONS: POST MENOPAUSAL BLEEDING TECHNIQUE: Real-time scanning was performed of the pelvic organs, with image documentation. Additional endovagi nal scanning was necessary due to incomplete visualization of the adnexal and endometrial structures by transabdominal scanning. Transvaginal scanning is limited as the probe could not be entirely inse rted. COMPARISON: Correlation is made with prior CT, 10/11/2020. FINDINGS: No pathologic free abdominal or pelvic fluid. Uterus: Uterus is normal in size at 7.5 x 4.1 x 4.3 cm. The uterus is anteverted and heterogeneous. There is a mid uterus intramural fundal fibroid seen measuring 2.2 x 3.6 x 2.5 cm, which demonstrates calcification. The endometrium measures 19 mm in combined thickness. Ovaries: Neither ovary is seen. No adnexal masses are seen on either side. IMPRESSION: The endometrial stripe is abnormally thickened (19 mm) in this patient with a presenting history of p ostmenopausal bleeding. Differential diagnosis includes endometrial hyperplasia and endometrial carci noma. Please consider correlation with endometrial histology, as clinically appropriate. 3.6 cm calcified uterine fibroid also seen. Reviewed by: Chinmay Lopez MD on 07/14/2021 4:55 PM [facility] Approved by: Chinmay Lopez MD on 07/14/2021 4:55 PM [facility] Station ID: [id number]
== END 2021-07-14 16:34 | disposition home or self-care (01) ==
LOC: DI 16:33
PROVIDERS: ATTEND Internal Medicine
DX: R93.89 Abnormal findings on diagnostic imaging of other specified body structures (principal); D25.1 Intramural leiomyoma of uterus; N95.0 Postmenopausal bleeding

== ENCOUNTER 2021-07-29 23:16 | Outpatient (CLI) | payer MEDICARE, MEDICAID | END 2021-07-29 23:17 | disposition EMS.NT | LOC: EMS 23:16 | DX: R53.1 Weakness (principal); R40.0 Somnolence ==

== ENCOUNTER 2021-08-17 08:00 | Outpatient (CLI) | payer MEDICARE, MEDICAID | END 2021-08-17 23:59 | disposition home or self-care (01) | LOC: LAB.WCP 08:00 | PROVIDERS: ATTEND Family Medicine | DX: L08.89 Other specified local infections of the skin and subcutaneous tissue (principal) | CPT/HCPCS: 87070; 87205 ==

== ENCOUNTER 2021-09-12 11:25 | Outpatient (CLI) | payer MEDICARE, MEDICAID ==
--- NOTE | 2021-09-12 12:41 | CT Report ---
PROCEDURE: HEAD WO INDICATIONS: HIST OF FALLS TECHNIQUE: Noncontrast 4.5 mm thick angled axial sections acquired from the foramen magnum to the vertex. For r adiation dose reduction, the following was used: automated exposure control, adjustment of mA and/or kV according to patient size. COMPARISON: 08/12/2021, 05/26/2021, 05/24/2021 FINDINGS: Image quality: Motion artifact is noted. Images were repeated, with some improvement. CSF spaces: Basal cisterns are patent. No extra-axial fluid collections. Ventricles are normal in size and shape. Brain: No midline shift. No intracranial masses or hemorrhage. Warren-white matter interface is norm al. Skull and face: Calvarium and visualized facial bones are intact, without suspicious lesions. Mild h yperostosis frontalis is incidentally noted, which is not frankly abnormal for a female patient of th is age. Sinuses: Visualized sinuses and mastoids are clear. Bilateral kim bullosa are incidentally noted , left larger than right. IMPRESSION: No intracranial hemorrhage is seen. No significant intracranial abnormality is seen. Age-appropriate brain parenchymal volume loss and chronic small vessel ischemic change can be seen. Reviewed by: Chinmay Lopez MD on 09/12/2021 11:40 AM [facility] Approved by: Chinmay Lopez MD on 09/12/2021 11:40 AM [facility] Station ID: [id number]
== END 2021-09-12 11:26 | disposition home or self-care (01) ==
LOC: DI 11:25
PROVIDERS: ATTEND Internal Medicine
DX: S09.90XA Unspecified injury of head, initial encounter (principal); Z91.81 History of falling; Z79.01 Long term (current) use of anticoagulants

== ENCOUNTER 2021-09-19 22:35 | Outpatient (CLI) | payer MEDICARE, MEDICAID | END 2021-09-19 22:36 | disposition left against medical advice (07) | LOC: EMS 22:35 | DX: R53.1 Weakness (principal) ==

== ENCOUNTER 2021-11-10 00:37 | Outpatient (CLI) | payer MEDICARE, MEDICAID | END 2021-11-10 00:38 | disposition EMS.NT | LOC: EMS 00:37 | DX: Z03.89 Encounter for observation for other suspected diseases and conditions ruled out (principal) ==

== ENCOUNTER 2021-11-11 12:35 | Outpatient (CLI) | payer MEDICARE, MEDICAID | END 2021-11-11 12:36 | disposition critical access hospital (66) | LOC: EMS 12:35 | DX: M25.552 Pain in left hip (principal); M79.18 Myalgia, other site; W18.30XA Fall on same level, unspecified, initial encounter | CPT/HCPCS: A0425; A0429 ==

== ENCOUNTER 2021-11-11 12:57 | Emergency (ER) | payer MEDICARE, MEDICAID ==
--- NOTE | 2021-11-11 15:26 | XRAY Report ---
PROCEDURE: Hip w/Pelvis 2-3V LT INDICATIONS: fall hip pain TECHNIQUE: AP pelvis with lateral view(s) of the left hip(s). COMPARISON: None. FINDINGS: Bones: No fractures or dislocations. Pelvic ring appears intact. No suspicious bony lesions. Generalized decreased osseous mineralization present. Soft tissues: The visualized bowel gas pattern is normal. No suspicious soft tissue calcifications. IMPRESSION: Osteopenia. No fracture. Reviewed by: Maximilian Brock MD on 11/11/2021 2:25 PM [facility] Approved by: Maximilian Brock MD on 11/11/2021 2:25 PM [facility] Station ID: [id number]
--- NOTE | 2021-11-11 15:30 | XRAY Report ---
PROCEDURE: Lumbar Spine 2 View, x-ray INDICATIONS: fall low back pain TECHNIQUE: 3 views of the lumbar spine were acquired. COMPARISON: CT abdomen pelvis 10/20/2021 FINDINGS: Bones: 5 [id number] vertebrae are present. There is normal bony alignment. Generalized decrea sed osseous mineralization present. L2 compression fracture with retropulsed fracture fragment remain s stable from the prior. T11 vertebroplasty noted. Soft tissues: Moderate fecal debris in the right colon. Calcified uterine fibroids present. Atherosc lerotic calcification of the abdominal aorta without evidence of aneurysm. Surgical clips present in the right upper quadrant IMPRESSION: Stable T11 and L2 osteopenic compression fractures Moderate fecal debris in the right colon Reviewed by: Maximilian Brock MD on 11/11/2021 2:29 PM [facility] Approved by: Maximilian Brock MD on 11/11/2021 2:29 PM [facility] Station ID: [id number]
--- NOTE | 2021-11-11 15:48 | ED Physician Documentation ---
PD HPI Fall - Stated complaint Stated Complaint: GLF - Chief complaint Chief Complaint: Trauma Ext - History obtained from History obtained from: Patient - History of Present Illness Mechanism of injury: Tripped Fall distance: Standing position Where injury occurred: Home Timing - onset: How many days ago (2) Injury(ies) location: Back, Left Lower Extremity Quality of pain: Pain Associated symptoms: No: LOC, AMS, Amnesia, Seizures, Ear drainage, Nasal drainage, Neck pain, Weakness, Paresthesias, Dyspnea, Nausea / vomiting, Hematemesis, Abdominal distension Symptoms improve with: Rest Worsens with: Movement, Palpation Contributing factors: No: Anticoagulated, Intoxicated Similar symptoms before: Diagnosis (lumbar compression fracture) Recently seen: Not recently seen - Additional information Additional information: Eloise Malik is a 76-year-old female who has had a significant compression fracture in her back and 2013 and she has a caregiver at home. She does state that she fell in her home 2 days ago and she is complaining of some pain to the left hip and her lower back. She was able to manage in her home with her walker and this morning she is in so much pain that she is having trouble even moving around in bed. She centers her pain over her left hip. She is having pain especially with weightbearing. Review of Systems Constitutional: denies: Fever Nose: denies: Congestion Throat: denies: Sore throat Respiratory: denies: Cough GI: denies: Abdominal Pain, Nausea, Vomiting, Constipation, Diarrhea : denies: Dysuria, Frequency Skin: denies: Rash Musculoskeletal: reports: Back pain, Extremity pain, Joint pain, Pain with weight bearing. denies: Neck pain Neurologic: denies: Generalized weakness, Focal weakness, Numbness PD PAST MEDICAL HISTORY - Past Medical History Past Medical History: Yes Cardiovascular: Hypertension, High cholesterol, Atrial fibrillation Respiratory: Asthma Endocrine/Autoimmune: None GI: Ulcers : Incontinence HEENT: Chronic vision loss, Chronic hearing loss Psych: Depression, Bipolar disorder, Panic attacks, Post traumatic stress disorder Musculoskeletal: Osteoarthritis, Fibromyalgia, Chronic back pain Derm: None - Past Surgical History Past Surgical History: Yes General: Cholecystectomy, Colonoscopy, Other Ortho: Arthroscopic surgery, Other HEENT: Tonsil/Adenoidectomy - Present Medications Home Medications: Ambulatory Orders Medication Instructions Recorded Confirmed Atorvastatin Calcium 40 mg PO QPM 02/05/21 05/27/21 Divalproex [Domingo Smith] 375 mg PO TID 02/05/21 05/27/21 Prazosin HCl [Minipress] 2 - 4 mg PO QPM 02/05/21 05/27/21 diltiaZEM CD [Cardizem Cd] 240 mg PO DAILY 02/05/21 05/27/21 Budesonide/Formoterol Fumarate 2 puffs INH BID 02/12/21 05/27/21 [Symbicort 160-4.5 Mcg Inhaler] Gabapentin [Neurontin] 600 mg PO TID 02/12/21 05/27/21 Mirtazapine 45 mg PO QPM 02/12/21 05/27/21 Ondansetron Odt [Zofran Odt] 4 mg TL Q6H PRN #10 tablet 02/13/21 05/27/21 Alendronate [Fosamax] 70 mg PO OAW 05/27/21 05/27/21 Amitriptyline [Elavil] 25 mg PO QPM PRN 05/27/21 05/27/21 Cholecalciferol (Vitamin D3) 50 mcg PO DAILY 05/27/21 05/27/21 [Vitamin D3] Docusate Sodium 100Mg Capsule 100 mg PO DAILY 05/27/21 05/27/21 [Colace 100Mg Capsule] Levocetirizine Dihydrochloride 5 mg PO DAILY PRN 05/27/21 05/27/21 QUEtiapine [SEROquel] 25 - 50 mg PO QPM 05/27/21 05/27/21 methocarbamoL [Methocarbamol] 500 mg PO TID PRN 05/27/21 05/27/21 Temazepam [Restoril] 30 mg PO QPM PRN #10 cap 05/30/21 oxyCODONE [Roxicodone] 5 mg PO Q4-6H PRN #20 tablet 05/30/21 Acetaminophen [Acetaminophen Extra 500 mg PO QID #60 tablet 08/20/21 Strength] Meloxicam [Mobic] 7.5 mg PO BID PRN #20 tablet 11/11/21 - Allergies Allergies/Adverse Reactions: Allergies Allergy/AdvReac Type Severity Reaction Status Date / Time Tetracyclines Allergy Intermediate Rash Verified 11/11/21 13:12 ciprofloxacin Allergy Nausea Verified 11/11/21 13:12 amoxicillin trihydrate * AdvReac Intermediate Nausea Verified 11/11/21 13:12 [From Augmentin] Penicillins AdvReac Nausea Verified 11/11/21 13:12 - Social History Does the pt smoke?: No Smoking Status: Never smoker Does the pt drink ETOH?: No Does the pt have substance abuse?: No - POLST Patient has POLST: No PD ED PE NORMAL - Vitals Vital signs reviewed: Yes (normal ) - General General: Alert and oriented X 3, No acute distress, Well developed/nourished - HEENT HEENT: Atraumatic, PERRL, EOMI - Neck Neck: Supple, no meningeal sign, No bony TTP - Cardiac Cardiac: RRR, No murmur - Respiratory Respiratory: No respiratory distress, Clear bilaterally - Abdomen Abdomen: Normal bowel sounds, Soft, Non tender, Non distended, No organomegaly - Back Back: No CVA TTP, Other (lumbar paraspinous muscle tenderness is poorly localized and minimal in comparison to pain over the trochanter posteriorly ) - Derm Derm: Normal color, Warm and dry, No rash - Extremities Extremities: No deformity, No edema, Other (no shortening or rotation. ) - Neuro Neuro: Alert and oriented X 3, collarette separator 2-12 intact (actually CN8 appears to function poorly ), No motor deficit, No sensory deficit, Normal speech Eye Opening: Spontaneous Motor: Obeys Commands Verbal: Oriented GCS Score: 15 - Psych Psych: Normal mood, Normal affect Results - Vitals Vitals: Vital Signs - 24 hr 11/11/21 11/11/21 13:05 17:47 Temperature 36.4 C L 36.8 C Heart Rate 66 79 Respiratory 20 16 Rate Blood Pressure 107/57 L 143/92 H O2 Saturation 94 93 Oxygen O2 Source [] Room air O2 Source Room air - Rads (name of study) left hip CT Radiology: Prelim report reviewed left hip Radiology: Prelim report reviewed (Impression: Osteopenia. No fracture.), EMP read indepedently, See rad report Lumbar spine Radiology: Prelim report reviewed (Impression: Stable T11 and L2 osteopenic compression fractures. Moderate fecal debris's in the right colon.), EMP read indepedently, See rad report PD MEDICAL DECISION MAKING - ED course Complexity details: reviewed old records, reviewed results, re-evaluated patient, considered differential, d/w patient, d/w family ED course: 76-year-old female with a fall 2 days ago is complaining of pain to her left hip and low back. She has chronic compression fractures and these appear unchanged on plain film. She has most of her complaint to the left hip especially with weightbearing and she has had this fall 2 days ago and pain is now peaking. Despite her use of 10 mg of hydrocodone she continues to have significant pain. A plain film is without findings and a CT scan done shows what appears to be a minimally displaced acetabular chip fracture. I have reviewed the case with our orthopedic surgeon Dr. Moreno and he recommends follow-up this week in clinic. The patient was unable to adequately ambulate in the department until she was administered IM toradal. This helped a lot. She had a history of peptic ulcer disease and we have e-scribed mobic as this may be easier on her stomach. We administered a dose of decadron prior to her discharge as well. Departure - Departure Disposition: 01 Home, Self Care Clinical Impression: Closed left acetabular fracture Qualifiers: Encounter type: initial encounter Sublocation of acetabulum: unspecified portion of acetabulum Fracture alignment: displaced Qualified Code(s): S32.402A - Unspecified fracture of left acetabulum, initial encounter for closed fracture Condition: Stable Instructions: Femoroacetabular Impingement Follow-Up: Esteban Bland MD [Provider Admit Priv/Credential] - Prescriptions: Meloxicam [Mobic] 7.5 mg PO BID PRN #20 tablet PRN Reason: Pain Comments: Eloise Hinton it looks like you have a small chip fracture on the acetabulum and this will be painful for weightbearing but does not require a surgery. I have E scribed some meloxicam as an anti-inflammatory that may be easier on your stoma chfinn in [place]. Follow-up with Dr. Moreno in the coming week.
--- NOTE | 2021-11-11 16:28 | CT Report ---
PROCEDURE: LOWER EXTREMITY WO - LT INDICATIONS: fall left hip pain TECHNIQUE: Noncontrast 3-mm axial sections acquired from the distal tibial shaft to the talar dome, with coronal and sagittal reformats. For radiation dose reduction, the following was used: automated exposure c ontrol, adjustment of mA and/or kV according to patient size. COMPARISON: None. FINDINGS: Image quality: Excellent. Bones: Generalized decreased osseous mineralization present. Left superior-inferior pubic rami are i ntact. Femoral head has an appropriate to contour. Femoral neck, greater lesser trochanters and the p roximal femur unremarkable. Soft tissues: Calcified uterine fibroids noted. Generalized urinary bladder and bowel are unremarkab le Impression: Osteopenia. Left proximal femur and left hemipelvis intact without fracture. Reviewed by: Maximilian Brock MD on 11/11/2021 3:26 PM [facility] Approved by: Maximilian Brock MD on 11/11/2021 3:26 PM [facility] Station ID: [id number]
[2021-11-11] MEDS ORDERED: KETOROLAC 30 MG/ML VIAL IM STA (17:04)
[2021-11-11] MEDS ORDERED: DEXAMETHASONE 10 MG/ML VIAL PO STA (17:38)
[2021-11-11] MEDS ORDERED: CHERRY SYRUP 10 ML UDC PO ONE (17:38)
[2021-11-11 17:48] VITALS: BP 143/92
== END 2021-11-11 18:06 | disposition home or self-care (01) ==
LOC: EDUNIT# → ED 12:57
DX: S32.402A Unspecified fracture of left acetabulum, initial encounter for closed fracture (principal); W19.XXXA Unspecified fall, initial encounter; M48.54XD Collapsed vertebra, not elsewhere classified, thoracic region, subsequent encounter for fracture with routine healing; M48.56XD Collapsed vertebra, not elsewhere classified, lumbar region, subsequent encounter for fracture with routine healing; K27.9 Peptic ulcer, site unspecified, unspecified as acute or chronic, without hemorrhage or perforation
CPT/HCPCS: 72100; 73502; 73700; 96372; 99284; A9270

== ENCOUNTER 2021-11-16 14:15 | Outpatient (CLI) | payer MEDICARE, MEDICAID | END 2021-11-16 14:16 | disposition critical access hospital (66) | LOC: EMS 14:15 | DX: R46.4 Slowness and poor responsiveness (principal); R53.1 Weakness; R53.81 Other malaise | CPT/HCPCS: A0425; A0429 ==

== ENCOUNTER → 2021-11-18 | Outpatient (CLI) | payer MEDICARE, MEDICAID | END | disposition short-term general hospital (02) | LOC: EMS 12:23 | DX: R53.1 Weakness (principal); R63.1 Polydipsia | CPT/HCPCS: A0425; A0427 ==